=== PATIENT | female | born 1950 | race Caucasian/White ===

== ENCOUNTER 2020-08-29 10:15 | Inpatient (IN) | payer MEDICARE, SELFPAY ==
[2020-08-29] VITALS (8 sets, daily range): BP systolic 104–198; BP diastolic 74–103; PULSE 80–95; RESP 16–20; TEMP 37–37.2; O2SAT 93–96; BMI 28.9
--- NOTE | ~2020-08-29 | XR_ITS ---
EXAMINATION: XR CHEST CLINICAL INFORMATION: Left extremity swelling and SOB COMPARISON: None TECHNIQUE: 2 views of the chest were obtained. FINDINGS: The lungs are well-expanded and clear of acute process. The heart size and pulmonary vascularity is normal. No gross bony abnormality seen. XR/XR chest 2V IMPRESSION: Unremarkable chest exam.
--- NOTE | ~2020-08-29 | US_ITS ---
EXAMINATION: US-GUIDED PARACENTESIS US-GUIDED UMBILICAL MASS BIOPSY CLINICAL INFORMATION: New ascites. Omental caking and likely pelvic mass. COMPARISON: CT abdomen and pelvis 08/29/2000. TECHNIQUE: Following explaining ultrasound-guided paracentesis and ultrasound-guided umbilical mass biopsy, procedure, benefits and risk, a written consent was obtained. Preliminary CT imaging was obtained through the abdomen, and an optimal site of drainable fluid was obtained in right mid quadrant laterally. Also, a site was marked for ultrasound-guided umbilical mass biopsy. Both of these areas were cleaned in the usual sterile manner. 1% lidocaine was administered right mid abdomen puncture site. Through a small skin incision a 5-[employer] catheter was advanced in the right peritoneal space. After removing the stylet and observing fluid return, catheter was connected to vacuum bottle via connecting cannula. Subsequently, the umbilical area was cleaned again. 1% lidocaine was injected to the left of the umbilicus. Under sterile ultrasound guidance, a single wall needle was advanced into the right umbilical mass and a 3 core biopsy was performed with a Biopsy gun. There was bleeding visualized at the umbilicus. Postprocedure, complete hemostasis achieved at the biopsy site as well as the right pelvis and the site of the mid abdomen. Sterile dressing applied postprocedure. Patient tolerated procedure well without immediate complications. No conscious sedation was administered. Patient was monitored by our nursing during exam. FINDINGS: On preliminary ultrasound imaging, there is loculated moderate peritoneal fluid. There is a soft tissue mass in the left upper quadrant, likely omental caking. Approximately 500 mL of clear light yellowish fluid was drained from the right lower quadrant. Part of this fluid was sent to lab for further testing. Preliminary ultrasound imaging through the umbilicus was performed. Preliminary ultrasound revealed a solid mass in the umbilicus. After sterile preparation, a 20-gauge guide needle was advanced from a left side approach into the umbilicus and coaxially a fine-needle biopsy was obtained x 3. Postprocedure, the needle was withdrawn from the umbilical mass and complete hemostasis achieved at puncture site. Patient tolerated the procedure extremely well. US/US biopsy abdomen retro mass IMPRESSION: Successful ultrasound-guided paracentesis with approximately 500 mL of light yellowish fluid drained from the right mid to lower quadrant. There appear to be a lot of loculations in the abdomen. Successful ultrasound-guided umbilical mass core biopsy performed x 3.
--- NOTE | ~2020-08-29 | FL_ITS ---
EXAMINATION: XR FLUOROSCOPY WITH IMAGES CLINICAL INFORMATION: Cystoscopy and stent placement right-sided COMPARISON: CT abdomen pelvis 08/29/2020 TECHNIQUE: Fluoroscopy performed by Dr. León. Fluoroscopy time: 54.7 seconds DAP: 17.44 mGy Images: 1 FINDINGS: Single image over the right kidney shows a double-J stent over the right kidney and passing down into the pelvis. There is small volume of contrast in dilated right renal collecting system. FL/FL guidance in OR IMPRESSION: Placement of double-J stent in right collecting system.
--- NOTE | ~2020-08-29 | US_ITS ---
EXAMINATION: US PELVIS, LIMITED/FOLLOW UP CLINICAL INFORMATION: Evaluate adnexal mass COMPARISON: 08/29/2020 TECHNIQUE: Transabdominal images of the pelvis were obtained. FINDINGS: Uterus not seen. Left ovary not seen. Moderate volume of ascites. In the region of the right adnexa, there is a 7.8 x 4.8 x 5.0 cm complex cystic structure. No normal-appearing right ovary is seen to confirm that this is ovarian in etiology. It could reflect loculated ascites. US/US pelvic limited IMPRESSION: 7.8 x 4.8 x 5.0 cm complex cystic structure in the right pelvis. Its unclear if this is adnexal in etiology or could reflect loculated ascites. Consider MRI with and without contrast for further evaluation as clinically indicated.
--- NOTE | ~2020-08-29 | CT_ITS ---
EXAMINATION: CT CHEST, ABDOMEN AND PELVIS WITHOUT CONTRAST CLINICAL INFORMATION: Weight loss, abdominal distention. Leg swelling. COMPARISON: Chest x-ray 08/29/2020. TECHNIQUE: 5 mm thin axial and reformatted 3 mm thin sagittal and coronal images of chest, abdomen and pelvis were obtained without contrast. DLP: 857 mGy-cm. FINDINGS: CHEST: The lungs are well-expanded and clear of acute pneumonic process. There is a 3 mm nodule left lower lobe superior segment adjacent to major fissure, axial image 98/7; a 4 mm nodule right upper lobe subpleural base, axial image 98/7. There is a 2 mm calcified nodule right upper lobe, axial image 208/7; 2 mm calcified nodule left lower lobe pericardial base, axial image 308/7. There are atelectatic changes in left lower lobe and right lower lobe. No acute pneumonic process seen. The thyroid lobes are symmetrical with small calcified nodules at the periphery of bilateral thyroid lobes. No abnormal-sized pericardial or anterior neck lymph nodes seen. Heart size is enlarged. The great vessels are normal caliber. There is atherosclerotic calcification of thoracic arch without aneurysmal dilatation. Coronary artery calcification visualized. There is no pleural effusion or pleural thickening. The axilla and chest wall appear unremarkable. ABDOMEN AND PELVIS: The liver is lobulated contour, heterogenous but no focal lesion or intrahepatic ductal dilatation seen. There is perihepatic ascites. The CBD is nondilated. There are surgical óscar in the right upper quadrant likely from previous cholecystectomy. There is mild heterogeneity of the spleen with small hypodense areas. The largest 1.5 cm hypodensity, axial image 14/11, may represent hemangioma, cyst or normal tissue variation in contrast uptake. Bilateral adrenal glands and the pancreas are unremarkable. The kidneys are normal size, shape. There are small exophytic midpole cysts right kidney. There is a moderately dilated right kidney pelvis and ureter extending to the mid abdomen and lost beyond that. The left kidney pelvis and the aorta are normal. There is a large amount of ascites. Also visualized is mild anasarca, but no abdominal wall hernia. There is a moderate-sized hiatal hernia. A small umbilical hernia containing fluid is noted. The stomach is otherwise unremarkable. The small-bowel loops are normal caliber. Appendix is not seen. There is a large amount of stool seen in the transverse and ascending colon without colonic distention. No peritoneal seeding seen; however, there is a solitary peritoneal 1.1 cm lymph node seen on axial image 46/11. There are no retroperitoneal lymph nodes or mass seen. Imaging through the pelvis reveals midline uterus with heterogenous uterine uptake, but no focal lesion visualized. There is diffuse free fluid. There is a soft tissue mass suspected in the right adnexa with mild heterogeneity. The mass is hard to visualize due to underlying ascites, ureter and the bladder adjacent to it. It is best visualized on axial image 57/11. It measures 20 Hounsfield units likely loculated fluid collection. There is right femoral hernia containing fluid. Bone windows reveal no lytic or sclerotic process. CT/CT abdomen pelvis wo con IMPRESSION: No acute pneumonic consolidation. There are small pulmonary nodules measuring 2 to 4 mm. No abnormal mediastinal or axillary adenopathy. Mildly heterogenous spleen likely related to slow contrast uptake. Mild right hydronephrosis with no obstructive etiology seen. There is a right renal cyst. Moderate constipation without obstruction. Diffuse ascites and mild anasarca. Loculated fluid collection versus ovarian cyst right adnexa. Moderate free fluid is seen in the pelvis. Liver cirrhosis suspected. Small right inguinal hernia containing fluid and small hiatal hernia.
--- NOTE | ~2020-08-29 | US_ITS ---
EXAMINATION: US-GUIDED PARACENTESIS US-GUIDED UMBILICAL MASS BIOPSY CLINICAL INFORMATION: New ascites. Omental caking and likely pelvic mass. COMPARISON: CT abdomen and pelvis 08/29/2000. TECHNIQUE: Following explaining ultrasound-guided paracentesis and ultrasound-guided umbilical mass biopsy, procedure, benefits and risk, a written consent was obtained. Preliminary CT imaging was obtained through the abdomen, and an optimal site of drainable fluid was obtained in right mid quadrant laterally. Also, a site was marked for ultrasound-guided umbilical mass biopsy. Both of these areas were cleaned in the usual sterile manner. 1% lidocaine was administered right mid abdomen puncture site. Through a small skin incision a 5-[employer] catheter was advanced in the right peritoneal space. After removing the stylet and observing fluid return, catheter was connected to vacuum bottle via connecting cannula. Subsequently, the umbilical area was cleaned again. 1% lidocaine was injected to the left of the umbilicus. Under sterile ultrasound guidance, a single wall needle was advanced into the right umbilical mass and a 3 core biopsy was performed with a Biopsy gun. There was bleeding visualized at the umbilicus. Postprocedure, complete hemostasis achieved at the biopsy site as well as the right pelvis and the site of the mid abdomen. Sterile dressing applied postprocedure. Patient tolerated procedure well without immediate complications. No conscious sedation was administered. Patient was monitored by our nursing during exam. FINDINGS: On preliminary ultrasound imaging, there is loculated moderate peritoneal fluid. There is a soft tissue mass in the left upper quadrant, likely omental caking. Approximately 500 mL of clear light yellowish fluid was drained from the right lower quadrant. Part of this fluid was sent to lab for further testing. Preliminary ultrasound imaging through the umbilicus was performed. Preliminary ultrasound revealed a solid mass in the umbilicus. After sterile preparation, a 20-gauge guide needle was advanced from a left side approach into the umbilicus and coaxially a fine-needle biopsy was obtained x 3. Postprocedure, the needle was withdrawn from the umbilical mass and complete hemostasis achieved at puncture site. Patient tolerated the procedure extremely well. US/US paracentesis abd w/image IMPRESSION: Successful ultrasound-guided paracentesis with approximately 500 mL of light yellowish fluid drained from the right mid to lower quadrant. There appear to be a lot of loculations in the abdomen. Successful ultrasound-guided umbilical mass core biopsy performed x 3.
[2020-08-29 12:14] LABS: Basophils Absolute Auto 0.1 X10*3/uL (0.0-0.2); Basophils Percent Auto 0.5 % (0-2); Hemoglobin 10.9 g/dl (12.0-16.0); MANUAL DIFF FLAG SCAN; PLT CLUMP 1; SCAN SMEAR FLAG 1
[2020-08-29 12:15] LABS: Eosinophils Absolute Auto 0.1 X10*3/uL (0.0-0.4); Eosinophils Percent Auto 0.4 % (0-4); Hematocrit 35.1 % (37-47); Imm Gran Abs Auto 0.08 X10*3/uL (0.00-0.03); Imm Gran Pct Auto 0.6 % (0.0-0.4); Lymphocytes Absolute Auto 0.5 X10*3/uL (1.2-4.9); Lymphocytes Percent Auto 3.9 % (20-40); Mean Corpuscular HGB Conc 31.1 g/dl (31.0-35.0); Mean Corpuscular Hemoglobin 29.2 pg (27.0-33.0); Mean Corpuscular Volume 94.1 fL (80-98); Monocytes Absolute Auto 0.5 X10*3/uL (0.1-1.2); Monocytes Percent Auto 3.5 % (2-11); Neutrophils Absolute Auto 11.8 X10*3/uL (2.0-8.3); Neutrophils Percent Auto 91.1 % (45-73); Red Blood Count 3.73 X10*6/uL (4.20-5.50); Red Cell Distribution Width 17.1 % (11.0-16.0)
[2020-08-29 12:26] LABS: Anion Gap 20 (12-20); Blood Urea Nitrogen 32 mg/dL (9-16); Calcium 9.7 mg/dL (8.4-10.2); Carbon Dioxide 26 mmol/L (22-29); Chloride 97 mmol/L (96-108); Creatinine Clr Calc Pharmacy 25.4; Estimated Glomerular Filt Rate 24; Glucose Random 86 mg/dL (60-115); Potassium 5.2 mmol/L (3.3-5.1); Sodium 138 mmol/L (135-145)
[2020-08-29 12:32] LABS: B Type Natriuretic Peptide 218 pg/mL (<100)
[2020-08-29 12:36] LABS: SLIDE REVIEW VERIFIED
--- NOTE | 2020-08-29 12:41 | ECG_ITS ---
Test Reason : LED SWELLING Blood Pressure : / mmHG Vent. Rate : 074 BPM Atrial Rate : 074 BPM P-R Int : 140 ms QRS Dur : 092 ms QT Int : 370 ms P-R-T Axes : 025 -23 053 degrees QTc Int : 410 ms Normal sinus rhythm with sinus arrhythmia Minimal voltage criteria for LVH, may be normal variant Cannot rule out Anterior infarct , age undetermined Abnormal ECG When compared with ECG of 22-APR-2017 13:52, No significant change was found Referred By: Alannah Skinner Electronically Signed By:LC JACKSON MD
--- NOTE | 2020-08-29 13:07 | ED_ITS ---
HPI - General Adult General Chief complaint: General Medical Stated complaint: CONSTIPATION WEIGHT LOSS Time Seen by Provider: 08/29/20 12:05 Source: patient and family Mode of arrival: ambulatory Limitations: no limitations History of Present Illness HPI narrative: 69-year-old female with a past medical history of substance use currently on methadone, copd here with complaints of loss of appetite, intermittent nausea and vomiting for the last month with 25lbs weight loss and abdominal distension and pain. She is also complaining of some constipation over the last 3 weeks. Her last bowel movement was 3 days ago but it was very small and pellet-like. She denies any shortness of breath, cough or chest pain. She has had lower extremity swelling over the last 2 weeks with no pain. Feeling generally weak, decreased movement at home. Family at bedside very concerned. Received moderna 2nd vaccine one month ago. Related Data Allergies Allergy/AdvReac Type Severity Reaction Status Date / Time fluoxetine [Prozac] Allergy Unknown Verified 11/28/12 00:00 lisinopril [LISINOPRIL] Allergy Unknown ANAPHYLAXIS, Unverified 12/05/19 15:31 THROAT SWELLS From PROZAC Allergy Severe INVOLUNTARY Uncoded 12/05/19 15:31 SPASMS Review of Systems Review of Systems: Yes all other systems are reviewed and are negative Constitutional: Constitutional: Reports no additional constitutional complaints, Denies body ache(s), Denies chills, Denies fever(s), Denies headache(s), Reports lethargy, Denies weakness and Reports weight loss Eyes: Eyes: Reports no additional eye complaints and Denies change in vision ENT: Reports system reviewed and no additional complaints, except as documented, Denies dizziness, Denies headache(s), Denies nasal congestion, Denies nasal discharge and Denies neck pain Cardiovascular: Cardiovascular: Reports no additional cardiovascular complaints, Denies chest pain, Reports leg edema and Denies dyspnea Respiratory: Respiratory: Reports no additional respiratory complaints, Denies cough and Denies dyspnea Gastrointestinal: Gastrointestinal: Reports no additional gastrointestinal complaints, Reports abdominal pain, Reports constipation, Denies diarrhea, Reports nausea and Reports vomiting Genitourinary: Genitourinary: Reports no additional female genitourinary complaints and Denies urinary incontinence Musculoskeletal: Musculoskeletal: Reports no additional musculoskeletal complaints, Denies back pain, Denies arthralgias, Denies joint swelling, Denies neck pain, Denies numbness and Denies tingling Integumentary/Breasts: Skin/Breast: Reports system reviewed and no additional complaints, except as docu and Denies rash Neurologic: Reports system reviewed and no additional complaints, except as documented, Denies Abnormal speech present, Denies dizziness, Denies headache(s), Denies numbness, Denies tingling and Denies weakness PMF Past Medical History Attestation statement: The following information was validated with the patient. Source: old records reviewed and nursing notes reviewed Social History Social History Alcohol intake: never Patient Tobacco Use Status: Current everyday Tobacco user Use of substances other than those prescribed or required for medical reasons: No Advance Directives: Yes Advance Directives Information Provided: Yes Advance Directives on File: No Physical Exam 2 Vital Signs: Vital Signs: Last Vital Signs Temp 98.6 F 08/29/20 16:48 Pulse 82 08/29/20 19:11 Resp 18 08/29/20 19:11 BP 165/83 H 08/29/20 19:11 Pulse Ox 96 08/29/20 19:11 Body Mass Index 28.9 Const: General: cooperative Orientation/consciousness: patient oriented x3 Limitations: no limitations HENMT: Head: Yes normal to inspection Ears: hearing grossly normal bilaterally General nose exam: Normal external nose present Face and sinu s: Yes normal facial exam Mouth: Normal oral and palatal mucosa present Throat: Yes posterior oropharynx normal, Yes tonsils normal and Yes uvula midline Eyes: General: appearance normal, both eyes and all related structures Pupils: Equal, round and reactive pupils present Neck: Neck: Yes normal visual inspection, Yes full ROM, Yes no lymphadenopathy and Yes no meningeal signs Chest: Chest palpation & inspection: normal inspection of the chest Resp: Effort & Inspection: normal respiratory effort Auscultation: clear to auscultation bilaterally Cardio: Rate: regular rate Rhythm: regular rhythm Peripheral pulses: Peripheral pulses 2+ throughout GI: Inspection: Yes normal to inspection Palpation (GI): Soft to palpation and Firmness to palpation present (GI) (distended, no obvious tenderness) Auscultation: normal bowel sounds Back/Spine/Pelvis: Thoracic/Lumbar Spine: thoracic and lumbar spine normal to inspection Skin: General skin exam: no rashes or lesions noted Neuro: General: patient oriented x3, moves all extremities, no meningeal signs, no focal motor deficits and normal sensation to monofilament Cranial nerves: Yes Equal, round and reactive pupils present, Yes Normal facial strength present and Yes Midline tongue present Cognition (Neuro): normal cognition Speech: No Abnormal speech present Gait exam (Neuro): Normal gait present Motor exam (neuro): 5/5 motor strength present throughout Extrem: Other: Massive pitting edema extending from the lower legs up to the groin with no erythema or redness General: Yes normal to inspection Course Course Course Narrative: 69 year old female with a past medical history of substance abuse currently on methadone here with complaints of abdominal distension with associated nausea, vomiting, change in bowel habits, 25 lb weight loss in the last 1 month with now lower extremity swelling extending to the groin. On exam the patient's abdomen is distended, firm there is no appreciable tenderness on exam. She has pitting edema extending from the lower extremities up to the groin. Hemodynamically stable. Will need labs, EKG, chest x-ray, UA, CT abdomen and chest. 1753-labs show a leukocytosis with acute kidney injury and a UTI. At this time infection is suspected. Antibiotics and normal saline bolus ordered. Patient also has a mildly elevated BNP. While there is no evidence on the chest x-ray of pulmonary vascular congestion this CT of her chest does show mild cardiomegaly and she has an elevated BNP with bilateral pitting edema to the low er extremities. Consider congestive heart failure. 20 mg of IV Lasix ordered. Imaging all show shows mild right hydronephrosis with no obstructive etiology. Moderate constipation with no obstruction. Diffuse ascites and mild anasarca with liver cirrhosis suspected. Soft tissue mass in the right adnexa with moderate free fluid in the pelvis. Due to weight loss with right adnexal mass consider malignancy. Pelvic ultrasound ordered. Discussed findings with patient and both of her daughters. At this point the patient will need admission for further evaluation and treatment. They agree to this.. 1809-discussed patient with Dr. Cervantes. At this point recommended admission after 19:00 with night team. 1944-Discussed with Dr Clancy who accepted admission. We discussed if patient requires immediate paracentesis in the ED today however after discussion with Dr Israel we do not feel at this time it is needed tonight and is best to be done guided under ultrasound in the setting of splenomegaly, coagulopathy., Medical Decision Making MDM Narrative Medical decision making narrative: Malignancy, liver failure, congestive heart failure Medical Records Medical records reviewed: Yes I reviewed the patient's medical records. Lab Data Lab results reviewed: Yes I reviewed the patient's lab results. Result diagrams: 08/29/20 11:56 08/29/20 11:56 Labs: Lab Results 08/29/20 08/29/20 08/29/20 Range/Units 11:56 11:56 11:56 WBC 13.0 H (4.8-10.8) X10*3/uL RBC 3.73 L (4.20-5.50) X10*6/uL Hgb 10.9 L (12.0-16.0) g/dl Hct 35.1 L (37-47) % MCV 94.1 (80-98) fL MCH 29.2 (27.0-33.0) pg MCHC 31.1 (31.0-35.0) g/dl RDW 17.1 H (11.0-16.0) % Plt Count TNP MPV Not Reportable Immature Gran % (Auto) 0.6 H (0.0-0.4) % Neut % (Auto) 91.1 H (45-73) % Lymph % (Auto) 3.9 L (20-40) % Wheeler % (Auto) 3.5 (2-11) % Eos % (Auto) 0.4 (0-4) % Baso % (Auto) 0.5 (0-2) % Lymph # (Auto) 0.5 L (1.2-4.9) X10*3/uL Wheeler # (Auto) 0.5 (0.1-1.2) X10*3/uL Eos # (Auto) 0.1 (0.0-0.4) X10*3/uL Baso # (Auto) 0.1 (0.0-0.2) X10*3/uL Abs Immat Gran (auto) 0.08 H (0.00-0.03) X10*3/uL Absolute Neuts (auto) 11.8 H (2.0-8.3) X10*3/uL Absolute Nucleated RBC 0.000 (0.0-0.012) X10*3/uL Nucleated RBC % (auto) 0.0 (0.0-0.2) /100WBC Smear Tech's Comments VERIFIED PT (10.8-13.0) SEC INR (0.9-1.1) Sodium 138 (135-145) mmol/L Potassium 5.2 H (3.3-5.1) mmol/L Chloride 97 (96-108) mmol/L Carbon Dioxide 26 (22-29) mmol/L Anion Gap 20 (12-20) BUN 32 H (9-16) mg/dL Creatinine 2.07 H (0.5-1.4) mg/dL Estim Creat Clear Calc 25.4 Estimated GFR 24 Random Glucose 86 (60-115) mg/dL Lactic Acid (0.5-2.0) mmol/L Calcium 9.7 (8.4-10.2) mg/dL Magnesium 2.2 (1.6-2.6) mg/dL Total Bilirubin 0.2 (0.0-1.0) mg/dL Direct Bilirubin < 0.2 (0.0-0.5) mg/dL AST 23 (5-31) U/L ALT < 6 (0-31) U/L Alkaline Phosphatase 732 H (39-117) U/L Total Creatine Kinase 21 L (26-140) U/L Troponin I High Sens (<3.5-17.0) ng/L B-Natriuretic Peptide 218 H (<100) pg/mL Total Protein 7.3 (6.5-8.0) g/dL Albumin 3.7 (3.5-5.0) g/dL Urine Color Urine Appearance Urine pH (5.0-8.0) Ur Specific [place] (1.005-1.025) Urine Protein (NEG-TRACE) MG/DL Urine Glucose (UA) (NEG) MG/DL Urine Ketones (NEG) MG/DL Urine Blood (NEG) Urine Nitrite (NEG) Ur Leukocyte Esterase (NEG) Urine RBC (0) /HPF Urine WBC (0-4) /HPF Ur Squamous Epith Cells /LPF Amorphous Sediment /LPF Urine Bacteria /LPF COVID-19 ([place]) (Negative) COVID-19 Clin Com 08/29/20 08/29/20 08/29/20 Range/Units 14:42 14:42 14:42 WBC (4.8-10.8) X10*3/uL RBC (4.20-5.50) X10*6/uL Hgb (12.0-16.0) g/dl Hct (37-47) % MCV (80-98) fL MCH (27.0-33.0) pg MCHC (31.0-35.0) g/dl RDW (11.0-16.0) % Plt Count MPV Immature Gran % (Auto) (0.0-0.4) % Neut % (Auto) (45-73) % Lymph % (Auto) (20-40) % Wheeler % (Auto) (2-11) % Eos % (Auto) (0-4) % Baso % (Auto) (0-2) % Lymph # (Auto) (1.2-4.9) X10*3/uL Wheeler # (Auto) (0.1-1.2) X10*3/uL Eos # (Auto) (0.0-0.4) X10*3/uL Baso # (Auto) (0.0-0.2) X10*3/uL Abs Immat Gran (auto) (0.00-0.03) X10*3/uL Absolute Neuts (auto) (2.0-8.3) X10*3/uL Absolute Nucleated RBC (0.0-0.012) X10*3/uL Nucleated RBC % (auto) (0.0-0.2) /100WBC Smear Tech's Comments PT 13.8 H (10.8-13.0) SEC INR 1.2 H (0.9-1.1) Sodium (135-145) mmol/L Potassium (3.3-5.1) mmol/L Chloride (96-108) mmol/L Carbon Dioxide (22-29) mmol/L Anion Gap (12-20) BUN (9-16) mg/dL Creatinine (0.5-1.4) mg/dL Estim Creat Clear Calc Estimated GFR Random Glucose (60-115) mg/dL Lactic Acid 0.9 (0.5-2.0) mmol/L Calcium (8.4-10.2) mg/dL Magnesium (1.6-2.6) mg/dL Total Bilirubin (0.0-1.0) mg/dL Direct Bilirubin (0.0-0.5) mg/dL AST (5-31) U/L ALT (0-31) U/L Alkaline Phosphatase (39-117) U/L Total Creatine Kinase (26-140) U/L Troponin I High Sens 15.9 (<3.5-17.0) ng/L B-Natriuretic Peptide (<100) pg/mL Total Protein (6.5-8.0) g/dL Albumin (3.5-5.0) g/dL Urine Color Urine Appearance Urine pH (5.0-8.0) Ur Specific [place] (1.005-1.025) Urine Protein (NEG-TRACE) MG/DL Urine Glucose (UA) (NEG) MG/DL Urine Ketones (NEG) MG/DL Urine Blood (NEG) Urine Nitrite (NEG) Ur Leukocyte Esterase (NEG) Urine RBC (0) /HPF Urine WBC (0-4) /HPF Ur Squamous Epith Cells /LPF Amorphous Sediment /LPF Urine Bacteria /LPF COVID-19 ([place]) (Negative) COVID-19 Clin Com 08/29/20 08/29/20 08/29/20 Range/Units 16:57 18:37 18:37 WBC (4.8-10.8) X10*3/uL RBC (4.20-5.50) X10*6/uL Hgb (12.0-16.0) g/dl Hct (37-47) % MCV (80-98) fL MCH (27.0-33.0) pg MCHC (31.0-35.0) g/dl RDW (11.0-16.0) % Plt Count MPV Immature Gran % (Auto) (0.0-0.4) % Neut % (Auto) (45-73) % Lymph % (Auto) (20-40) % Wheeler % (Auto) (2-11) % Eos % (Auto) (0-4) % Baso % (Auto) (0-2) % Lymph # (Auto) (1.2-4.9) X10*3/uL Wheeler # (Auto) (0.1-1.2) X10*3/uL Eos # (Auto) (0.0-0.4) X10*3/uL Baso # (Auto) (0.0-0.2) X10*3/uL Abs Immat Gran (auto) (0.00-0.03) X10*3/uL Absolute Neuts (auto) (2.0-8.3) X10*3/uL Absolute Nucleated RBC (0.0-0.012) X10*3/uL Nucleated RBC % (auto) (0.0-0.2) /100WBC Smear Tech's Comments PT (10.8-13.0) SEC INR (0.9-1.1) Sodium (135-145) mmol/L Potassium (3.3-5.1) mmol/L Chloride (96-108) mmol/L Carbon Dioxide (22-29) mmol/L Anion Gap (12-20) BUN (9-16) mg/dL Creatinine (0.5-1.4) mg/dL Estim Creat Clear Calc Estimated GFR Random Glucose (60-115) mg/dL Lactic Acid (0.5-2.0) mmol/L Calcium (8.4-10.2) mg/dL Magnesium (1.6-2.6) mg/dL Total Bilirubin (0.0-1.0) mg/dL Direct Bilirubin (0.0-0.5) mg/dL AST (5-31) U/L ALT (0-31) U/L Alkaline Phosphatase (39-117) U/L Total Creatine Kinase (26-140) U/L Troponin I High Sens 17.2 H* (<3.5-17.0) ng/L B-Natriuretic Peptide (<100) pg/mL Total Protein (6.5-8.0) g/dL Albumin (3.5-5.0) g/dL Urine Color YELLOW Urine Appearance CLOUDY Urine pH 5.5 (5.0-8.0) Ur Specific [place] >= 1.030 H (1.005-1.025) Urine Protein 2+ H (NEG-TRACE) MG/DL Urine Glucose (UA) NEG (NEG) MG/DL Urine Ketones NEG (NEG) MG/DL Urine Blood 2+ H (NEG) Urine Nitrite NEG (NEG) Ur Leukocyte Esterase 1+ H (NEG) Urine RBC 15-29 H (0) /HPF Urine WBC 30-49 H (0-4) /HPF Ur Squamous Epith Cells 1+ /LPF Amorphous Sediment 2+ /LPF Urine Bacteria 1+ /LPF COVID-19 ([place]) Negative (Negative) COVID-19 Clin Com See Note Imaging Data Chest x-ray: Attestation: I personally reviewed and interpreted this imaging study as follows: Radiologist's impression: EXAMINATION: XR CHEST CLINICAL INFORMATION: Left extremity swelling and SOB COMPARISON: None TECHNIQUE: 2 views of the chest were obtained. FINDINGS: The lungs are well-expanded and clear of acute process. The heart size and pulmonary vascularity is normal. No gross bony abnormality seen. XR/XR chest 2V IMPRESSION: Unremarkable chest exam. ECG Data Attestation: I personally reviewed and interpreted this ECG as follows: Interpretation: Normal sinus rhythm with sinus arrhythmia, minimal voltage criteria for LVH, normal RI, normal QRS, normal QT Discharge Plan Discharge Clinical Impression: NONI (acute kidney injury), Leukocytosis, UTI (urinary tract infection), Elevated brain natriuretic peptide (BNP) level, Swelling of both lower extremities, Adnexal mass, Abnormal weight loss Patient Disposition: Admitted As Inpatient
[2020-08-29] MEDS: 0.9 % Sodium Chloride 500 ML 999 ML IV (13:18)
[2020-08-29 13:23] LABS: Alanine Aminotransferase < 6 U/L (0-31); Albumin Level 3.7 g/dL (3.5-5.0); Alkaline Phosphatase 732 U/L (39-117); Aspartate Amino Transferase 23 U/L (5-31); Bilirubin Direct < 0.2 mg/dL (0.0-0.5); Bilirubin Total 0.2 mg/dL (0.0-1.0); Magnesium 2.2 mg/dL (1.6-2.6); Total Protein 7.3 g/dL (6.5-8.0)
[2020-08-29 15:00] LABS: INTERNATIONAL NORM RATIO 1.2 (0.9-1.1); Prothrombin Time 13.8 SEC (10.8-13.0)
[2020-08-29 15:08] LABS: Lactic Acid 0.9 mmol/L (0.5-2.0)
[2020-08-29 15:31] LABS: Troponin-I High Sensitivity 15.9 ng/L (<3.5-17.0)
[2020-08-29 17:09] LABS: Glucose Urine UA NEG (NEG); Leukocyte Esterase Urine 1+ (NEG); Nitrite Urine NEG (NEG); PH 5.5 (5.0-8.0); Specific Gravity - Urine >= 1.030 (1.005-1.025); UACC Culture Trigger YES; Urine Blood 2+ (NEG); Urine Ketones NEG (NEG); Urine Protein 2+ MG/DL (NEG-TRACE)
[2020-08-29 17:11] LABS: Appearance Urine CLOUDY; Color Urine YELLOW
[2020-08-29 17:19] LABS: Amorphous Sediment Urine 2+ /LPF; Bacteria Urine 1+ /LPF; Squamous Epithelial Cell Urine 1+ /LPF; WBC Urine 30-49 /HPF (0-4)
[2020-08-29] MEDS: Furosemide 20 MG/2 ML VIAL IVPUSH (18:41)
[2020-08-29] MEDS: cefTRIAXone sodium 1 GM in 0.9 % Sodium Chloride 50 ML IV (18:41)
[2020-08-29 19:07] LABS: COVID-19 Test Negative (Negative); IDNOW Serial# 9DD0AD1C
[2020-08-29 19:28] LABS: Troponin-I High Sensitivity 17.2 ng/L (<3.5-17.0)
[2020-08-29] MEDS: 0.9 % Sodium Chloride 1,000 ML 100 ML IVCONT (20:50)
--- NOTE | 2020-08-29 21:04 | PC.NURSE ---
pt has severe 10/10 left lower abd. hospitalist called for additional pain medication.
[2020-08-29 21:21] LABS: C Reactive Protein 16.23 mg/dL (< or = 0.50)
[2020-08-29] MEDS: HYDROmorphone HCl 0.5 MG/0.5 ML SYRINGE IVPUSH (21:35)
[2020-08-29 21:52] LABS: Erythrocyte Sedimentation Rate 92 MM/HR (0-20)
[2020-08-30] VITALS (12 sets, daily range): BP systolic 110–208; BP diastolic 61–94; PULSE 68–94; RESP 16–18; TEMP 36.3–36.9; O2SAT 91–97
--- NOTE | 2020-08-30 00:05 | P.HPHOSP_ITS ---
History of Present Illness Date of Service: 08/29/20 Chief Complaint: Abdominal pain 69-year-old female with a past medical history of opiate dependence on methadone program, COPD, tobacco dependence presented to the hospital with a chief complaint of abdominal discomfort. Patient mentions that over the past few days he has been having abdominal discomfort which has been gradually worsening. Hence decided to come to the ER here for evaluation today. Patient reports that over the past few weeks he has been losing weight-lost almost about 25 lb. Reports abdominal discomfort. Denies passing gas or having bowel movement. Per family members patient has been having issues with constipation. Patient denies any alcohol or illicit drug use. Denies any recent travel or sick contacts. Denies any in blood in the stool. Reports nausea and vomiting. Also reports poor oral intake. Denies any urinary symptoms. Denies any cough or chest pain. Denies any palpitations. Denies any numbness tingling. Review of all other systems is negative except mentioned above ER course: Per ER team patient noted to have a distended abdomen, tender, no guarding; CT abdomen showed home in liver cirrhosis with the new onset ascites, right adnexal mass; on the labs noted to have NONI and UTI. Patient has no signs of enceph alopathy. Neurological exam benign. Will CT chest showed cardiomegaly otherwise no acute findings. Her troponins ended from 8. Admitted to the hospital for further management. [facility] Medical History (Updated 08/30/20 @ 15:51 by Scarlet Del Angel MD) COPD (chronic obstructive pulmonary disease) Surgical History (Updated 08/30/20 @ 13:39 by Mary Valenzuela MD) History of cholecystectomy Social History Alcohol intake: never Patient Tobacco Use Status: Current everyday Tobacco user Use of substances other than those prescribed or required for medical reasons: No Advance Directives: Yes Advance Directives Information Provided: Yes Advance Directives on File: No service: No Current occupational status: retired Meds Allergies Allergy/AdvReac Type Severity Reaction Status Date / Time fluoxetine [Prozac] Allergy Unknown Verified 11/28/12 00:00 lisinopril [LISINOPRIL] Allergy Unknown ANAPHYLAXIS, Unverified 12/05/19 15:31 THROAT SWELLS From PROZAC Allergy Severe INVOLUNTARY Uncoded 12/05/19 15:31 SPASMS Active Medications: Current Medications Generic Name Dose Route Start Last Admin Trade Name Kenji PRN Reason Stop Dose Admin Acetaminophen 650 mg 08/29/20 20:17 Acetaminophen 325 Mg Tablet PO Q6H PRN Pain, Mild (Pain Scale 1-3) Hydromorphone HCl 0.5 mg 08/29/20 21:02 08/29/20 21:35 Hydromorphone Hcl 0.5 Mg/0.5 Ml Syringe IVPUSH 0.5 mg Q4H PRN Administration Breakthrough Pain Sodium Chloride 1,000 mls @ 100 mls/hr 08/29/20 20:30 08/29/20 20:50 Ns IVCONT 100 mls/hr .Q10H DOMINICK Administration Ceftriaxone Sodium 1 gm/ 50 mls @ 100 mls/hr 08/30/20 18:00 Sodium Chloride IV Q24H [facility] Pharmacy Consult 1 each 08/29/20 17:54 Consult Rx Perform Med Rec MISCELLANE ONCE PRN Consult order Sodium Chloride 3 ml 08/30/20 00:00 0.9 % Sodium Chloride Flush 3 Ml Syringe IVFLUSH QSHIFT [facility] Home Medications Medication Instructions Recorded Confirmed Last Taken Type methadone 105 mg PO QAM 08/30/20 08/30/20 08/29/20 History 0800 Physical Exam Vital Signs and Narrative: Vital Signs: Last Vital Signs Temp 98.6 F 08/29/20 16:48 Pulse 86 08/29/20 22:44 Resp 16 08/29/20 22:44 BP 186/90 H 08/29/20 22:44 Pulse Ox 95 08/29/20 22:44 Body Mass Index 28.9 Gen: Appears be in no acute distress HEENT: NCAT, Moist mucosa. Pulmonary: Vesicular breath sounds, fair air entry CVS: Normal S1-S2 Abdomen: BS+, Soft, distended, tender, fullness noticed on the left side; no guarding no rigidity Extremities: Warm well perfused Neuro: Alert and awake. Results Labs CBC and Chem 7: 08/30/20 12:46 08/30/20 12:46 Labs: Laboratory Results - last 24 hr 08/29/20 08/29/20 08/29/20 11:56 11:56 11:56 MCV 94.1 MCH 29.2 MCHC 31.1 RDW 17.1 H Plt Count TNP MPV Not Reportable Immature Gran % (Auto) 0.6 H Neut % (Auto) 91.1 H Lymph % (Auto) 3.9 L [place] % (Auto) 3.5 Eos % (Auto) 0.4 Baso % (Auto) 0.5 Lymph # (Auto) 0.5 L [place] # (Auto) 0.5 Eos # (Auto) 0.1 Baso # (Auto) 0.1 Abs Immat Gran (auto) 0.08 H Absolute Neuts (auto) 11.8 H Absolute Nucleated RBC 0.000 Nucleated RBC % (auto) 0.0 Smear Tech's Comments VERIFIED ESR PT INR Anion Gap 20 Estim Creat Clear Calc 25.4 Estimated GFR 24 Random Glucose 86 Lactic Acid Calcium 9.7 Magnesium 2.2 Total Bilirubin 0.2 Direct Bilirubin < 0.2 AST 23 ALT < 6 Alkaline Phosphatase 732 H Total Creatine Kinase 21 L Troponin I High Sens C-Reactive Protein 16.23 H B-Natriuretic Peptide 218 H Total Protein 7.3 Albumin 3.7 Carcinoembryonic Ag 1.80 Urine Color Urine Appearance Urine pH Ur Specific [place] Urine Protein Urine Glucose (UA) Urine Ketones Urine Blood Urine Nitrite Ur Leukocyte Esterase Urine RBC Urine WBC Ur Squamous Epith Cells Amorphous Sediment Urine Bacteria COVID-19 ([facility]) COVID-19 Clin Com 08/29/20 08/29/20 08/29/20 11:56 14:42 14:42 MCV MCH MCHC RDW Plt Count MPV Immature Gran % (Auto) Neut % (Auto) Lymph % (Auto) [place] % (Auto) Eos % (Auto) Baso % (Auto) Lymph # (Auto) [place] # (Auto) Eos # (Auto) Baso # (Auto) Abs Immat Gran (auto) Absolute Neuts (auto) Absolute Nucleated RBC Nucleated RBC % (auto) Smear Tech's Comments ESR 92 H PT 13.8 H INR 1.2 H Anion Gap Estim Creat Clear Calc Estimated GFR Random Glucose Lactic Acid 0.9 Calcium Magnesium Total Bilirubin Direct Bilirubin AST ALT Alkaline Phosphatase Total Creatine Kinase Troponin I High Sens C-Reactive Protein B-Natriuretic Peptide Total Protein Albumin Carcinoembryonic Ag Urine Color Urine Appearance Urine pH Ur Specific [place] Urine Protein Urine Glucose (UA) Urine Ketones Urine Blood Urine Nitrite Ur Leukocyte Esterase Urine RBC Urine WBC Ur Squamous Epith Cells Amorphous Sediment Urine Bacteria COVID-19 ([facility]) COVID-19 Clin Com 08/29/20 08/29/20 08/29/20 14:42 16:57 18:37 MCV MCH MCHC RDW Plt Count MPV Immature Gran % (Auto) Neut % (Auto) Lymph % (Auto) [place] % (Auto) Eos % (Auto) Baso % (Auto) Lymph # (Auto) [place] # (Auto) Eos # (Auto) Baso # (Auto) Abs Immat Gran (auto) Absolute Neuts (auto) Absolute Nucleated RBC Nucleated RBC % (auto) Smear Tech's Comments ESR PT INR Anion Gap Estim Creat Clear Calc Estimated GFR Random Glucose Lactic Acid Calcium Magnesium Total Bilirubin Direct Bilirubin AST ALT Alkaline Phosphatase Total Creatine Kinase Troponin I High Sens 15.9 17.2 H* C-Reactive Protein B-Natriuretic Peptide Total Protein Albumin Carcinoembryonic Ag Urine Color YELLOW Urine Appearance CLOUDY Urine pH 5.5 Ur Specific [place] >= 1.030 H Urine Protein 2+ H Urine Glucose (UA) NEG Urine Ketones NEG Urine Blood 2+ H Urine Nitrite NEG Ur Leukocyte Esterase 1+ H Urine RBC 15-29 H Urine WBC 30-49 H Ur Squamous Epith Cells 1+ Amorphous Sediment 2+ Urine Bacteria 1+ COVID-19 ([facility]) COVID-19 Clin Com 08/29/20 18:37 MCV MCH MCHC RDW Plt Count MPV Immature Gran % (Auto) Neut % (Auto) Lymph % (Auto) [place] % (Auto) Eos % (Auto) Baso % (Auto) Lymph # (Auto) [place] # (Auto) Eos # (Auto) Baso # (Auto) Abs Immat Gran (auto) Absolute Neuts (auto) Absolute Nucleated RBC Nucleated RBC % (auto) Smear Tech's Comments ESR PT INR Anion Gap Estim Creat Clear Calc Estimated GFR Random Glucose Lactic Acid Calcium Magnesium Total Bilirubin Direct Bilirubin AST ALT Alkaline Phosphatase Total Creatine Kinase Troponin I High Sens C-Reactive Protein B-Natriuretic Peptide Total Protein Albumin Carcinoembryonic Ag Urine Color Urine Appearance Urine pH Ur Specific [place] Urine Protein Urine Glucose (UA) Urine Ketones Urine Blood Urine Nitrite Ur Leukocyte Esterase Urine RBC Urine WBC Ur Squamous Epith Cells Amorphous Sediment Urine Bacteria COVID-19 ([facility]) Negative COVID-19 Clin Com See Note Imaging Radiologist's Impressions: Impressions Chest X-Ray 08/29/20 12:41 IMPRESSION: Unremarkable chest exam. Pelvis Ultrasound 08/29/20 18:01 IMPRESSION: 7.8 x 4.8 x 5.0 cm complex cystic structure in the right pelvis. Its unclear if this is adnexal in etiology or could reflect loculated ascites. Consider MRI with and without contrast for further evaluation as clinically indicated. Assessment and Plan (1) NONI (acute kidney injury): Status: Acute 69-year-old female with a past medical history of opiate dependence on methadone, tobacco dependence, COPD presented to the hospital with a chief complaint of abdominal pain/weight loss/nausea/vomiting/poor oral intake. Abdominal mass: Will consult General surgery and urogynaecologist further recommendations. Patient also noted to have oozing from the umbilicus. CT chest-preliminary noted to have cardiomegaly otherwise no acute abdominal mildly-final read pending CT abdomen-preliminary reported liver cirrhosis new onset ascites, right adnexal mass-final read pending Will keep the patient NPO Gentle IV fluids Oncology consult Will obtain AFP and CEA levels Liver cirrhosis/new onset ascites: IR consult for diagnostic tap. Will obtain NATHANIEL panel, EBV, CMV, hepatitis panel. Gastroenterology consult for further recommendations. Patient currently mentating well, no signs of encephalopathy. UTI: Continue ceftriaxone. Follow up cultures. NONI: Gentle IV fluids. Tobacco dependence: Counseled on smoking cessation COPD: Stable. Celeste p.r.n. Opiate dependence: Patient on methadone 105 mg daily. Will consult Addiction Medicine for confirmation and continuation of methadone. Prophylaxis: SCD boots Code status: Full code Spoke to the patient's granddaughter ankush [phone]
[2020-08-30] MEDS: HYDROmorphone HCl 0.5 MG/0.5 ML SYRINGE IVPUSH ×5 (01:34→22:30)
--- NOTE | 2020-08-30 07:14 | PC.NURSE ---
PT refusing labs at this time.
[2020-08-30] MEDS: 0.9 % Sodium Chloride 1,000 ML 100 ML IVCONT ×2 (09:04→17:24)
--- NOTE | 2020-08-30 10:07 | MHC.RECOVSUP ---
Recovery Support note: Patient is a 69 year old Citizen Of [place] speaking female who presented to [facility] ED due to constipation. Patient is currently awaiting a medical admission. This marketing underwriter met with patient to discuss her substance use and methadone maintenance treatment. Patient is accompanied by two family members. Patient reports she is still uncomfortable and in pain. Patient reports she receives methadone through [facility] and that they give her two weeks worth at a time. Patient reports the methadone has been very helpful and she reports no current substance use. Patient reports she has not taken her methadone dose today. Patient filled out EITAN which was sent to the [facility] methadone nursing station ([phone]). [facility] and confirmed that patient receives 105mg. This marketing underwriter informed patient's RN that patient is still feeling uncomfortable. This marketing underwriter available as needed.
--- NOTE | 2020-08-30 10:09 | HO.PM.IMPN ---
Subjective Subjective Date of Service: 08/30/20 Interval History: Seen in f/u for pelvic mass, ascietes, renal failure, still has some abd pain Physical Exam Vital Signs: Vital Signs: Last Vital Signs Temp 98.5 F 08/30/20 00:00 Pulse 75 08/30/20 03:47 Resp 16 08/30/20 07:29 BP 184/81 H 08/30/20 03:47 Pulse Ox 94 08/30/20 03:47 Body Mass Index 28.9 Const: Other: Constitutional Awake and Alert, No apparent distress Neck Supple, No lymphadenopathy Cardiovascular RRR, No M/R/G, S1 S2, No S3 S4, 2+ pedal edema Respiratory Lungs clear, No respiratory distress Gastrointestinal mild tenderness, distended, signs of ascites Skin No rash-stasis dermatitis of both lower legs Neurological Alert & oriented x3 Psychological Appropriate affect Objective Data Current Medications Generic Name Dose Route Start Last Admin Trade Name Freq PRN Reason Stop Dose Admin Acetaminophen 650 mg 08/29/20 20:17 Acetaminophen 325 Mg Tablet PO Q6H PRN Pain, Mild (Pain Scale 1-3) Hydromorphone HCl 0.5 mg 08/29/20 21:02 08/30/20 07:26 Hydromorphone Hcl 0.5 Mg/0.5 Ml Syringe IVPUSH 0.5 mg Q4H PRN Administration Breakthrough Pain Sodium Chloride 1,000 mls @ 100 mls/hr 08/29/20 20:30 08/30/20 09:04 Ns IVCONT 100 mls/hr .Q10H DOMINICK Administration Ceftriaxone Sodium 1 gm/ 50 mls @ 100 mls/hr 08/30/20 18:00 Sodium Chloride IV Q24H [facility] Consult 1 each 08/29/20 17:54 Consult Rx Perform Med Rec MISCELLANE ONCE PRN Consult order Sodium Chloride 3 ml 08/30/20 00:00 08/30/20 09:04 0.9 % Sodium Chloride Flush 3 Ml Syringe IVFLUSH Not Given QSHIFT [facility] Labs CBC & Chem 7: 08/30/20 12:46 08/30/20 12:46 Assessment and Plan (1) NONI (acute kidney injury): Status: Acute Assessment and Plan: 69-year-old female with a past medical history of opiate dependence on methadone, tobacco dependence, COPD presented to the hospital with a chief complaint of abdominal pain/weight loss/nausea/vomiting/poor oral intake. Abdominal mass/Pelvis mass, ascites (7.8 x 4.8 x 5.0 cm complex cystic structure in the right pelvis. Its unclear if this is adnexal in etiology or could reflect loculated ascites, suspect this to be likely ovarian origin. Internet Marketing Manager eval for further direction of care. Oncology eval pending as well Pain control with morphine CEA level pending Liver cirrhosis/new onset ascites: IR consult for diagnostic tap. Will obtain NATHANIEL panel, EBV, CMV, hepatitis panel. Gastroenterology consult for further recommendations. UTI: Continue ceftriaxone. Follow up cultures. NONI:likely pre renal vs obstructive urolopathy, Uro consult, IVF repet tomorrow. Better Tobacco dependence: Counseled on smoking cessation COPD: Stable. Celeste p.r.n. Opiate dependence: Patient on methadone 105 mg daily. Will consult Addiction Medicine for confirmation and continuation of methadone. Prophylaxis: SCD boots Code status: Full code
--- NOTE | 2020-08-30 11:40 | PM.GICN ---
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 She is also complaining of some constipation over the last 3 weeks. Her last bowel movement was 3 days ago but it was very small and pellet-like. She denies any shortness of breath, cough or chest pain. She has had lower extremity swelling over the last 2 weeks with no pain. Feeling generally weak, decreased movement at home. Family at bedside very concerned. Received moderna 2nd vaccine one month ago. ER course: Per ER team patient noted to have a distended abdomen, tender, no guarding; CT abdomen showed home in liver cirrhosis with the new onset ascites, right adnexal mass; on the labs noted to have elevated AP, NONI and UTI. Patient has no signs of encephalopathy. Neurological exam benign. Will CT chest showed cardiomegaly otherwise no acute findings. Her troponins ended from 8. Admitted to the hospital for further management. History was obtained from the patient and her 2 daughters who were at the bedside. Daughter reports that patient noted a lump in her abdomen in January 2020 and refused to see a physician for evaluation. One of her daughters came from [place] and was able to convince the patient to come to [facility] yesterday. Patient complains of persistent lower abdominal pain which radiates laterally, nausea, vomiting, dizziness and unsteady gait with frequent falls. He has had worsening heartburn with regurgitation. She complains of constipation with bowel movement every 1-2 weeks. She denies noticing any melena or hematochezia She has been taking prune juice and a a chocolate containing laxative for constipation with inconsistent results. Patient admits to decreased p.o. intake with weight loss. She has been having night sweats and denies fever or chills. Patient has COPD and is on home oxygen. Patient denies loud snoring or sleep apnea Denies problems with anesthesia in the past. Denies being on chronic anticoagulation. Patient smokes half pack per day of cigarettes since age 16 years. She denies EtOH abuse. Patient lives with her boyfriend and has 5 children and 10 grandchildren. 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 A sister has breast cancer. IMAGING STUDIES: 08/29/[address] SCAN SHOWED: No acute pneumonic consolidation. There are small pulmonary nodules measuring 2 to 4 mm. No abnormal mediastinal or axillary adenopathy. Mildly heterogenous spleen likely related to slow contrast uptake. Mild right hydronephrosis with no obstructive etiology seen. There is a right renal cyst. Moderate constipation without obstruction. Diffuse ascites and mild anasarca. Loculated fluid collection versus ovarian cyst right adnexa. Moderate free fluid is seen in the pelvis. Liver cirrhosis suspected. Small right inguinal hernia containing fluid and small hiatal hernia. 08/29/20 PELVIC ULTRASOUND SHOWED: 7.8 x 4.8 x 5.0 cm complex cystic structure in the right pelvis. Its unclear if this is adnexal in etiology or could reflect loculated ascites. Consider MRI with and without contrast for further evaluation as clinically indicated. ENDOSCOPIC STUDIES: Patient denies having an upper endoscopy or colonoscopy in the past PAST GI HISTORY BY REVIEW OF MEDICAL RECORDS: No GI visits in [facility] or [facility] Review of Systems Constitutional: Constitutional: Denies fever(s), Denies headache(s), Reports night sweats and Reports weight loss Eyes: Eyes: Denies eye discharge and Denies irritation ENT: Reports Normal hearing present, Denies dysphagia, Denies dizziness and Denies headache(s) Cardiovascular: Cardiovascular: Denies chest pain, Reports leg edema, Reports dyspnea and Reports dyspnea on exertion Respiratory: Respiratory: Denies cough, Reports dyspnea and Reports dyspnea on exertion Gastrointestinal: Gastrointestinal: Reports abdominal pain, Reports bloating, Reports change in bowel habits, Reports constipation, Denies dysphagia, Reports heartburn, Reports nausea and Reports vomiting Genitourinary: Genitourinary: Denies difficulty voiding and Denies dysuria Musculoskeletal: Musculoskeletal: Denies back pain and Denies arthralgias Integumentary/Breasts: Skin/Breast: Denies pruritus, Denies rash and Denies jaundice Neurologic: Reports Normal hearing present, Denies Abnormal speech present, Denies dizziness, Denies headache(s) and Denies seizure-like activity Psychiatric: Psychiatric: Denies anxiety, Denies depression and Denies panic attacks Endocrine: Endocrine: Denies cold intolerance, Denies flushing and Denies heat intolerance Hematologic/Lymphatic: Hematologic/Lymphatic: Denies easy bleeding and Denies easy bruising PMFSH Past Medical History Medical History COPD (chronic obstructive pulmonary disease) Surgical History Surgical History History of cholecystectomy S/P lumpectomy, right breast Social History Social History (Updated 08/31/20 @ 16:58 by Giulia Wynn MD) Household Members: Significant Other Housing: Apartment Do you presently have visiting nurse or other home services: No Alcohol intake: never Patient Tobacco Use Status: Current everyday Tobacco user Tobacco use type: Cigarette Second Hand Smoke Exposure: No Substance Use Type: Opiates and Painkillers Advance Directives Date on File: 08/30/20 service: No Current occupational status: retired [employer] Allergies Allergy/AdvReac Type Severity Reaction Status Date / Time lisinopril [LISINOPRIL] Allergy Severe ANAPHYLAXIS, Verified 08/31/20 10:37 THROAT SWELLS fluoxetine [Prozac] Allergy Unknown Anaphylaxis Verified 08/31/20 10:37 From PROZAC Allergy Severe INVOLUNTARY Uncoded 12/05/19 15:31 SPASMS Active Medications: Current Medications Generic Name Dose Route Start Last Admin Trade Name Freq PRN Reason Stop Dose Admin Acetaminophen 650 mg 08/29/20 20:17 Acetaminophen 325 Mg Tablet PO Q6H PRN Pain, Mild (Pain Scale 1-3) Hydromorphone HCl 0.5 mg 08/29/20 21:02 08/30/20 07:26 Hydromorphone Hcl 0.5 Mg/0.5 Ml Syringe IVPUSH 0.5 mg Q4H PRN Administration Breakthrough Pain Sodium Chloride 1,000 mls @ 100 mls/hr 08/29/20 20:30 08/30/20 09:04 Ns IVCONT 100 mls/hr .Q10H DOMINICK Administration Ceftriaxone Sodium 1 gm/ 50 mls @ 100 mls/hr 08/30/20 18:00 Sodium Chloride IV Q24H [facility] Pharmacy Consult 1 each 08/29/20 17:54 Consult Rx Perform Med Rec MISCELLANE ONCE PRN Consult order Sodium Chloride 3 ml 08/30/20 00:00 08/30/20 09:04 0.9 % Sodium Chloride Flush 3 Ml Syringe IVFLUSH Not Given QSHIFT [facility] Home Medications Medication Instructions Recorded Confirmed Last Taken Type methadone 105 mg PO QAM 08/30/20 08/30/20 08/29/20 History 0800 Physical Exam Vital Signs: Vital Signs: Last Vital Signs Temp 98.5 F 08/30/20 00:00 Pulse 75 08/30/20 03:47 Resp 16 08/30/20 07:29 BP 184/81 H 08/30/20 03:47 Pulse Ox 94 08/30/20 03:47 Body Mass Index 28.9 Const: General: healthy appearing and no acute distress Nutritional Appearance: average body habitus Orientation/consciousness: patient oriented x3 Limitations: no limitations HENMT: Head: Yes normal to inspection Ears: hearing grossly normal bilaterally Mouth: Normal oral and palatal mucosa present Eyes: Sclerae: sclerae normal Pupils: Equal, round and reactive pupils present Neck: Neck: Yes normal visual inspection Chest: Chest palpation & inspection: normal inspection of the chest Resp: Effort & Inspection: normal respiratory effort Auscultation: rales (at both bases) Cardio: Palpation: normal PMI Rate: regular rate Rhythm: regular rhythm Heart sounds: S1 normal heart sound present, S2 normal heart sound present and no murmurs GI: Inspection: Yes scar (Upper midline scar of past cholecystectomy) Palpation (GI): Soft to palpation, Tenderness to palpation present (GI) (diffuse tenderness without rebound), No hepatosplenomegaly present, Palpable mass present (Hard mass extending to the LUQ from the umbilicus - approx 6 x 6 cms) and Ascites present Auscultation: normal bowel sounds Rectal Exam - Female: deferred Skin: General skin exam: no rashes or lesions noted Neuro: General: patient oriented x3, gait normal and moves all extremities Cranial nerves: Yes Equal, round and reactive pupils present and Yes Normal hearing present Speech: No Abnormal speech present Psych: Appearance: grossly normal Mental Status: mental status grossly normal Results Labs CBC & Chem 7: 09/03/20 16:21 09/04/20 05:40 Labs: Short CBC 08/29/20 Range/Units 11:56 WBC 13.0 H (4.8-10.8) X10*3/uL Hgb 10.9 L (12.0-16.0) g/dl Hct 35.1 L (37-47) % Plt Count TNP BMP 08/29/20 11:56 Sodium 138 Potassium 5.2 H Chloride 97 Carbon Dioxide 26 BUN 32 H Creatinine 2.07 H Calcium 9.7 Cardiac Enzymes 08/29/20 Range/Units 11:56 Total Creatine Kinase 21 L (26-140) U/L Liver Function 08/29/20 Range/Units 11:56 Total Bilirubin 0.2 (0.0-1.0) mg/dL Direct Bilirubin < 0.2 (0.0-0.5) mg/dL AST 23 (5-31) U/L ALT < 6 (0-31) U/L Alkaline Phosphatase 732 H (39-117) U/L Albumin 3.7 (3.5-5.0) g/dL Urine 08/29/20 Range/Units 16:57 Urine Color YELLOW Urine Appearance CLOUDY Urine pH 5.5 (5.0-8.0) Ur Specific [place] >= 1.030 H (1.005-1.025) Urine Protein 2+ H (NEG-TRACE) MG/DL Urine Glucose (UA) NEG (NEG) MG/DL Microbiology Microbiology Results: Microbiology 08/29/20 Unknown Urine clean catch - Clean Catch Midstream Urine Culture - Final Assessment and Plan (1) Ascites: Status: Acute (2) Abnormal weight loss: Status: Acute (3) Generalized continuous abdominal pain: Status: Acute 69 YF with COPD admitted with the worsening abdominal pain with an enlarging intra-abdominal mass, lower extremity edema, constipation and significant weight loss. Labs showed mild anemia, elevated LDH, alkaline phosphatase and renal insufficiency Imaging studies show a 7.8 x 4.8 x 5.0 cm complex cystic structure in the right pelvis. Abd CT scan showed Mild right hydronephrosis with no obstructive etiology seen. There is a right renal cyst. Moderate constipation without obstruction. Diffuse ascites and mild anasarca. 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 RECOMMENDATIONS: 1. Agree with checking hepatitis serologies and proceeding with a diagnostic peritoneal tap with ascitic fluid analysis for cell count and diff, albumin, protein, LDH and cytology. 2. MiraLax twice daily for constipation - order placed. 3. Repeat Alk Phosphatase with isoenzymes to determine if elevated alkaline phosphatase is from the liver or bone. 4. Further recommendation as per OBGYN. Procedures Date of Service Date of Service: 08/30/20
[2020-08-30 12:52] LABS: Basophils Percent Auto 0.3 % (0-2); Eosinophils Absolute Auto 0.1 X10*3/uL (0.0-0.4); Eosinophils Percent Auto 0.4 % (0-4); Hematocrit 35.8 % (37-47); Hemoglobin 11.3 g/dl (12.0-16.0); Imm Gran Abs Auto 0.07 X10*3/uL (0.00-0.03); Imm Gran Pct Auto 0.5 % (0.0-0.4); Lymphocytes Absolute Auto 0.5 X10*3/uL (1.2-4.9); Lymphocytes Percent Auto 3.8 % (20-40); MANUAL DIFF FLAG SCAN; Mean Corpuscular HGB Conc 31.6 g/dl (31.0-35.0); Mean Corpuscular Hemoglobin 29.4 pg (27.0-33.0); Mean Corpuscular Volume 93.2 fL (80-98); Mean Platelet Volume 9.1 fL (9.4-12.3); Monocytes Absolute Auto 0.5 X10*3/uL (0.1-1.2); Monocytes Percent Auto 3.8 % (2-11); Neutrophils Absolute Auto 12.5 X10*3/uL (2.0-8.3); Neutrophils Percent Auto 91.2 % (45-73); Platelet Count 319 X10*3/uL (160-400); Red Blood Count 3.84 X10*6/uL (4.20-5.50); Red Cell Distribution Width 17.1 % (11.0-16.0); SCAN SMEAR FLAG 1; White Blood Count 13.7 X10*3/uL (4.8-10.8)
--- NOTE | 2020-08-30 12:57 | PM.GYNCN ---
[employer]PER[employer]OR [employer] - CN: HPI Data of Consult Consult date: 08/30/20 Requesting Physician: Rishabh Cervantes MD Primary Care Provider: Mounika Martinez NP Consult Narrative Narrative: I was consulted by Dr. Cervantes regarding Ms. Trinity Wyatt who is a 69 year old female presented to the emergency room with few months history of diffuse abdominal associated with nausea and vomiting. Pelvic ultrasound showed: 7.8 x 4.8 x 5.0 cm complex cystic structure in the right pelvis. Its unclear if this is adnexal in etiology CT of abdomen and pelvis: Several small pulmonary nodules measuring 2 to 4 mm. Mild right hydronephrosis, a right renal cyst, moderately dilated right kidney pelvis and ureter extending to the mid abdomen and lost beyond that ; Diffuse ascites, Loculated fluid collection versus ovarian cyst right adnexa. Moderate free fluid is seen in the pelvis, Liver cirrhosis suspected. Small right inguinal hernia containing fluid and small hiatal hernia. Umbilical hernia. cc:: CC: Rishabh Cervantes MD [employer] - Review of Systems Review of Systems ROS Unobtainable: All systems reviewed & are unremarkable except as noted in HPI and below Cardiovascular: Denies Palpatations, Loss of consciousness and Chest pain Respiratory: Denies Cough, Wheezing and Shortness of breath Musculoskeletal: Denies Low back pain Gastrointestinal: Denies Heartburn, Constipation, Diarrhea, Nausea and Vomiting Genitourinary: Denies Pain with urination, Burning with urination and Urinary frequency Neurological: Denies Migranes Psychological: Denies Depression OB [facility] Social History Social History Alcohol intake: never Patient Tobacco Use Status: Current everyday Tobacco user Use of substances other than those prescribed or required for medical reasons: No Advance Directives: Yes Advance Directives Information Provided: Yes Advance Directives on File: No Meds Allergies Allergy/AdvReac Type Severity Reaction Status Date / Time fluoxetine [Prozac] Allergy Unknown Verified 11/28/12 00:00 lisinopril [LISINOPRIL] Allergy Unknown ANAPHYLAXIS, Unverified 12/05/19 15:31 THROAT SWELLS From PROZAC Allergy Severe INVOLUNTARY Uncoded 12/05/19 15:31 SPASMS Active Medications: Current Medications Generic Name Dose Route Start Last Admin Trade Name Freq PRN Reason Stop Dose Admin Acetaminophen 650 mg 08/29/20 20:17 Acetaminophen 325 Mg Tablet PO Q6H PRN Pain, Mild (Pain Scale 1-3) Hydromorphone HCl 0.5 mg 08/29/20 21:02 08/30/20 07:26 Hydromorphone Hcl 0.5 Mg/0.5 Ml Syringe IVPUSH 0.5 mg Q4H PRN Administration Breakthrough Pain Sodium Chloride 1,000 mls @ 100 mls/hr 08/29/20 20:30 08/30/20 09:04 Ns IVCONT 100 mls/hr .Q10H DOMINICK Administration Ceftriaxone Sodium 1 gm/ 50 mls @ 100 mls/hr 08/30/20 18:00 Sodium Chloride IV Q24H [facility] Pharmacy Consult 1 each 08/29/20 17:54 Consult Rx Perform Med Rec MISCELLANE ONCE PRN Consult order Sodium Chloride 3 ml 08/30/20 00:00 08/30/20 09:04 0.9 % Sodium Chloride Flush 3 Ml Syringe IVFLUSH Not Given QSHIFT [facility] Home Medications Medication Instructions Recorded Confirmed Last Taken Type methadone 105 mg PO QAM 08/30/20 08/30/20 08/29/20 History 0800 [employer] Physical Exam Vitals Vital signs: Temp Pulse Resp BP Pulse Ox 98.5 F 75 16 184/81 H 94 08/30/20 00:00 08/30/20 03:47 08/30/20 07:29 08/30/20 03:47 08/30/20 03:47 Body Mass Index 28.9 Constitutional General Appearance: Healthy appearing, Well-nourished and Well-developed Psychiatric Mood and Affect: active and alert, normal mood and normal affect Skin Appearance: No rashes and No lesions Lungs Respiratory Effort: No intercostal retractions Auscultation: Clear to auscultation Cardiovascular Auscultation: RRR Abdomen Auscultation/Inspection/Palpation: Normal bowel sounds, Soft, Distended, Tenderness (Diffuse) and Other (No guarding or rebound, umbilical mass felt) Hernia: Umbilical Female Genitalia (Pelvic) Exam: Deferred [employer] - Results Labs CBC & Chem 7: 08/30/20 12:46 08/29/20 11:56 Labs: Short CBC 08/30/20 Range/Units 12:46 WBC 13.7 H (4.8-10.8) X10*3/uL Hgb 11.3 L (12.0-16.0) g/dl Hct 35.8 L (37-47) % Plt Count 319 (160-400) X10*3/uL Cardiac Enzymes 08/29/20 Range/Units 11:56 Total Creatine Kinase 21 L (26-140) U/L Liver Function 08/29/20 Range/Units 11:56 Total Bilirubin 0.2 (0.0-1.0) mg/dL Direct Bilirubin < 0.2 (0.0-0.5) mg/dL AST 23 (5-31) U/L ALT < 6 (0-31) U/L Alkaline Phosphatase 732 H (39-117) U/L Albumin 3.7 (3.5-5.0) g/dL Urine 08/29/20 Range/Units 16:57 Urine Color YELLOW Urine Appearance CLOUDY Urine pH 5.5 (5.0-8.0) Ur Specific [place] >= 1.030 H (1.005-1.025) Urine Protein 2+ H (NEG-TRACE) MG/DL Urine Glucose (UA) NEG (NEG) MG/DL Assessment and Plan (1) NONI (acute kidney injury): Status: Acute With mild hydronephrosis , dilated ureter, the ovarian mass could be obstructing the right ureter and causing NONI. Recommend Urology consult for possible ureteral stent insertion or nephrostomy, if NONI could not be reversed, consider transfer to [facility] Finance And Administration Manager Oncology service for possible surgical intervention with oophorectomy and possible ovarian cancer staging. (2) Adnexal mass: Status: Acute Clinical scenario suspicious for ovarian cancer with possible metastatis, with the findings on ultrasound and CT scan showing a complex ovarian cyst, ascites, multiple pulmonary nodules and and umbilical mass identified on physical exam (although not seen on a CT scan). Add to Alpha fetoprotein and CEA , LDH, CA 19- 9, CA 125 as tumor markers for ovarian cancer, (likely possibility of false elevation secondary to renal failure), Consider biopsy of the umbilical mass especially if identified on MRI, ascites aspiration to identify any possible cancer cells, and pulmonary nodule biopsy if possible. If NONI is reversed and the patient is able to be discharged home , refer to Finance And Administration Manager Oncology service at [facility] for management if not, consider in patient transfer to Finance And Administration Manager Oncology Service at [facility].
--- NOTE | 2020-08-30 13:09 | P.CONGS_ITS ---
History of Present Illness Consult details Consult date: 08/30/20 Reason for consult: abdominal pain Requesting physician: Adrian Garcia Narrative: this is a 69-year-old female who presented to the emergency department for evaluation of abdominal pain late yesterday. She gives a history of approximately 6 months duration of abdominal discomfort, diminished appetite and weight loss of over 25 lb. Recently, she has experienced increasing abdominal distension. She reports constipation. She has no urinary complaints. Her past history is significant for COPD. She is on home oxygen therapy, which she uses on a p.r.n. basis. She also has a remote history of opioid use and has been maintained on methadone for about 20 years. Workup in the emergency department included a CT scan of the abdomen and pelvis that showed marked ascites. The liver was noted to be lobulated and the possibility of cirrhosis was noted. the presence of a cystic mass in the right pelvis was suspected as well. Dilated right renal pelvis and ureter were noted with cut off at the level of the suspected right pelvic mass. Umbilical hernia was noted. Pelvic ultrasound was obtained as well and revealed a complex cystic structure in the right hemipelvis, possibly a cystic mass or loculated ascitic fluid. Further evaluation with MRI was suggested. White blood count is mildly elevated, 13.7. Review of Systems Constitutional: Constitutional: Denies chills, Denies fever(s), Reports lethargy, Reports poor appetite and Reports weight loss Cardiovascular: Cardiovascular: Denies chest pain, Denies syncope, Denies palpitations and Reports dyspnea on exertion Respiratory: Respiratory: Denies cough and Reports dyspnea on exertion Neurologic: Denies syncope and Reports memory loss Psychiatric: Psychiatric: Reports memory loss Endocrine: Endocrine: Denies palpitations Hematologic/Lymphatic: Comments: No history of bleeding or blood clots PMF Past Medical History Medical History (Updated 08/30/20 @ 13:40 by Mary Valenzuela MD) COPD (chronic obstructive pulmonary disease) Surgical History Surgical History (Updated 08/30/20 @ 13:39 by Mary Valenzuela MD) History of cholecystectomy Social History Social History Alcohol intake: never Patient Tobacco Use Status: Current everyday Tobacco user Use of substances other than those prescribed or required for medical reasons: No Advance Directives: Yes Advance Directives Information Provided: Yes Advance Directives on File: No Meds Allergies Allergy/AdvReac Type Severity Reaction Status Date / Time fluoxetine [Prozac] Allergy Unknown Verified 11/28/12 00:00 lisinopril [LISINOPRIL] Allergy Unknown ANAPHYLAXIS, Unverified 12/05/19 15:31 THROAT SWELLS From PROZAC Allergy Severe INVOLUNTARY Uncoded 12/05/19 15:31 SPASMS Active Medications: Current Medications Generic Name Dose Route Start Last Admin Trade Name Freq PRN Reason Stop Dose Admin Acetaminophen 650 mg 08/29/20 20:17 Acetaminophen 325 Mg Tablet PO Q6H PRN Pain, Mild (Pain Scale 1-3) Hydromorphone HCl 0.5 mg 08/29/20 21:02 08/30/20 07:26 Hydromorphone Hcl 0.5 Mg/0.5 Ml Syringe IVPUSH 0.5 mg Q4H PRN Administration Breakthrough Pain Sodium Chloride 1,000 mls @ 100 mls/hr 08/29/20 20:30 08/30/20 09:04 Ns IVCONT 100 mls/hr .Q10H DOMINICK Administration Ceftriaxone Sodium 1 gm/ 50 mls @ 100 mls/hr 08/30/20 18:00 Sodium Chloride IV Q24H [facility] Pharmacy Consult 1 each 08/29/20 17:54 Consult Rx Perform Med Rec MISCELLANE ONCE PRN Consult order Sodium Chloride 3 ml 08/30/20 00:00 08/30/20 09:04 0.9 % Sodium Chloride Flush 3 Ml Syringe IVFLUSH Not Given QSHIFT [facility] Home Medications Medication Instructions Recorded Confirmed Last Taken Type methadone 105 mg PO QAM 08/30/20 08/30/20 08/29/20 History 08 Physical Exam Vital Signs: Vital Signs: Last Vital Signs Temp 98.5 F 08/30/20 00:00 Pulse 75 08/30/20 03:47 Resp 16 08/30/20 07:29 BP 184/81 H 08/30/20 03:47 Pulse Ox 94 08/30/20 03:47 Body Mass Index 28.9 Const: General: no acute distress and alert Nutritional Appearance: underweight HENMT: Head: Yes normocephalic and Yes atraumatic Eyes: Sclerae: sclerae normal EOM: EOMs intact bilaterally Neck: Neck: Yes trachea midline and Yes supple Resp: Effort & Inspection: normal respiratory effort Auscultation: clear to auscultation bilaterally Cardio: Rate: regular rate Rhythm: regular rhythm GI: Other: distended, firm, mildly tender diffusely, skin of umbilicus were all with slight serosanguineous weeping, indurated Skin: Other: generally warm and dry Results Labs Result diagrams: 08/30/20 12:46 08/30/20 12:46 Labs: Abnormal lab results 08/29/20 08/29/20 08/29/20 Range/Units 11:56 11:56 14:42 WBC (4.8-10.8) X10*3/uL RBC (4.20-5.50) X10*6/uL Hgb (12.0-16.0) g/dl Hct (37-47) % RDW (11.0-16.0) % MPV (9.4-12.3) fL ESR 92 H (0-20) MM/HR PT 13.8 H (10.8-13.0) SEC INR 1.2 H (0.9-1.1) Alkaline Phosphatase 732 H (39-117) U/L Total Creatine Kinase 21 L (26-140) U/L Troponin I High Sens (<3.5-17.0) ng/L C-Reactive Protein 16.23 H (< or = 0.50) mg/dL Ur Specific [place] (1.005-1.025) Urine Protein (NEG-TRACE) MG/DL Urine Blood (NEG) Ur Leukocyte Esterase (NEG) Urine RBC (0) /HPF Urine WBC (0-4) /HPF 08/29/20 08/29/20 08/30/20 Range/Units 16:57 18:37 12:46 WBC 13.7 H (4.8-10.8) X10*3/uL RBC 3.84 L (4.20-5.50) X10*6/uL Hgb 11.3 L (12.0-16.0) g/dl Hct 35.8 L (37-47) % RDW 17.1 H (11.0-16.0) % MPV 9.1 L (9.4-12.3) fL ESR (0-20) MM/HR PT (10.8-13.0) SEC INR (0.9-1.1) Alkaline Phosphatase (39-117) U/L Total Creatine Kinase (26-140) U/L Troponin I High Sens 17.2 H* (<3.5-17.0) ng/L C-Reactive Protein (< or = 0.50) mg/dL Ur Specific [place] >= 1.030 H (1.005-1.025) Urine Protein 2+ H (NEG-TRACE) MG/DL Urine Blood 2+ H (NEG) Ur Leukocyte Esterase 1+ H (NEG) Urine RBC 15-29 H (0) /HPF Urine WBC 30-49 H (0-4) /HPF Short CBC 08/30/20 Range/Units 12:46 WBC 13.7 H (4.8-10.8) X10*3/uL Hgb 11.3 L (12.0-16.0) g/dl Hct 35.8 L (37-47) % Plt Count 319 (160-400) X10*3/uL Cardiac Enzymes 08/29/20 Range/Units 11:56 Total Creatine Kinase 21 L (26-140) U/L Liver Function 08/29/20 Range/Units 11:56 Total Bilirubin 0.2 (0.0-1.0) mg/dL Direct Bilirubin < 0.2 (0.0-0.5) mg/dL AST 23 (5-31) U/L ALT < 6 (0-31) U/L Alkaline Phosphatase 732 H (39-117) U/L Albumin 3.7 (3.5-5.0) g/dL Urine 08/29/20 Range/Units 16:57 Urine Color YELLOW Urine Appearance CLOUDY Urine pH 5.5 (5.0-8.0) Ur Specific [place] >= 1.030 H (1.005-1.025) Urine Protein 2+ H (NEG-TRACE) MG/DL Urine Glucose (UA) NEG (NEG) MG/DL All other labs normal. Assessment and Plan (1) Ascites: Status: Acute (2) Adnexal mass: Status: Acute (3) Abnormal weight loss: Status: Acute this is a 69-year-old female presenting with a several month history of weight loss, abdominal discomfort, and more recent abdominal distension and pain. Workup including CT scan of the abdomen and pelvis and pelvic ultrasound suggest the presence of a cystic mass in the right pelvis causing right ureteral obstruction. Ascites is present and exam findings are most consistent with umbilical mass than fluid containing umbilical hernia. Overall picture is most concerning for an ovarian malignancy though other etiologies are possible. agree with plan for sampling of ascites for chemistry and cytology. Check CA 125. Urology consultation for right ureteral obstruction. Procedures Date of Service Date of Service: 08/30/20
[2020-08-30 13:12] LABS: SLIDE REVIEW VERIFIED
[2020-08-30 13:17] LABS: Anion Gap 17 (12-20); Blood Urea Nitrogen 29 mg/dL (9-16); Calcium 9.1 mg/dL (8.4-10.2); Carbon Dioxide 28 mmol/L (22-29); Chloride 99 mmol/L (96-108); Creatinine Clr Calc Pharmacy 27.6; Estimated Glomerular Filt Rate 26; Glucose Random 85 mg/dL (60-115); Magnesium 2.1 mg/dL (1.6-2.6); Potassium 4.6 mmol/L (3.3-5.1); Sodium 139 mmol/L (135-145)
[2020-08-30 13:34] LABS: Lactate Dehydrogenase 1854 U/L (122-220)
--- NOTE | 2020-08-30 14:10 | MHC.CM.PN ---
Met with patient and family in regards to discharge planning. Patient lives with a friend, ambulates independently and had no services prior to coming to the hospital. Patient was seeing Mounika Martinez as a PCP. However, Mounika left the practice. Patient is still active with [facility]. HCP completed, signed and witnessed. Original given to patient. Copy placed in chart. IMM explained and signed. Patient's family will transport patient home when medically stable. Daughters are concerned patient needs more help at home due to increasing confusion. Patient is active with [facility]. T/W left a message with Moriah, transitions of care nurse of [facility]. Asked Moriah to reach out to patient's laboratory animal care veterinarian to help family get more services. Continue to monitor for d/c needs.
[2020-08-30] MEDS: Calcium Carbonate 750 MG TAB.CHEW PO ×2 (17:24→22:26)
[2020-08-30] MEDS: cefTRIAXone sodium 1 GM in 0.9 % Sodium Chloride 50 ML IV (18:47)
[2020-08-30] MEDS: polyethylene glycoL 3350 17 GM POWD.PACK PO (20:24)
[2020-08-31] VITALS (22 sets, daily range): BP systolic 148–180; BP diastolic 68–95; PULSE 75–94; RESP 16–20; TEMP 36.2–37; O2SAT 93–98
[2020-08-31 03:37] LABS: HBc Num1 8.94 S/CO (0.00-0.79); HBsAGNum1 0.19 S/CO (0.00-0.99); Hepatitis B Surface Antigen Negative (Negative); ~HepC Num1 10.49 S/CO (0.00-0.79); ~Hepatitis C Antibody Reactive (Nonreactive)
[2020-08-31 03:50] LABS: ~Hepatitis B Surface Antibody REACTIVE (Nonreactive)
[2020-08-31] MEDS: HYDROmorphone HCl 0.5 MG/0.5 ML SYRINGE IVPUSH ×3 (04:04→12:01)
[2020-08-31] MEDS: 0.9 % Sodium Chloride 1,000 ML 100 ML IVCONT ×2 (04:04→12:02)
[2020-08-31 04:23] LABS: HBc Num2 8.67 S/CO; HBc Num3 9.09 S/CO; Hepatitis B Core Antibody Reactive (Nonreactive)
[2020-08-31] MEDS: 0.9 % Sodium Chloride Flush 3 ML SYRINGE IVFLUSH (08:02)
[2020-08-31] MEDS: polyethylene glycoL 3350 17 GM POWD.PACK PO (08:05)
--- NOTE | 2020-08-31 08:17 | P.CNHO_ITS ---
Subjective - Subjective Chief complaint: Consult for: Advanced ovarian carcinoma. Patient: new to practice Consult date: 08/31/20 Requesting Physician: Billy. Primary Care Provider: Mounika Martinez NP Medical Summary: DIAGNOSIS: ADVANCED OVARIAN CARCINOMA. HPI - Consult Narrative Reason for consult: Consult for advanced ovarian carcinoma. Narrative: Trinity Wyatt is a pleasant unfortunate 69 year old lady, who presented with a few months history of diffuse abdominal associated with nausea and vomiting. Patient said that, over the past few days, she has been having abdominal discomfort which has been gradually worsening. Hence decided to come to the ER. Patient reported that over the past few weeks she has been losing weight-lost almost about 25 lb. Reported abdominal discomfort. Denies passing gas or having bowel movement. Per family members, she has been having issues with constipation. Denies any in blood in the stool. Reports nausea and vomiting. Also reports poor oral intake. Denies any cough or chest pain. Denies any palpitations. Denies any numbness tingling. Denies any urinary symptoms. Review of all other systems is negative except mentioned above. IMAGING: Pelvic ultrasound showed: 7.8 x 4.8 x 5.0 cm complex cystic structure in the right pelvis. Its unclear if this is adnexal in etiology CT of abdomen and pelvis: Several small pulmonary nodules measuring 2 to 4 mm. Mild right hydronephrosis, a right renal cyst, moderately dilated right kidney pelvis and ureter extending to the mid abdomen and lost beyond that ; Diffuse ascites, Loculated fluid collection versus ovarian cyst right adnexa. Moderate free fluid is seen in the pelvis, Liver cirrhosis suspected. Small right inguinal hernia containing fluid and small hiatal hernia. Umbilical hernia. Past medical history of: Opiate dependence on methadone program, COPD, tobacco dependence. Social History: Patient denies any alcohol or illicit drug use. Denies any recent travel or sick contacts. Review of Systems - Constitutional Reports lack of energy, Reports poor appetite - Eyes Reports system reviewed and no additional complaints, except as documented - ENT Reports system reviewed and no additional complaints, except as documented - Cardiovascular Reports system reviewed and no additional complaints, except as documented - Respiratory Reports no additional respiratory complaints - Gastrointestinal Reports system reviewed and no additional complaints, except as documented - Genitourinary Reports no additional female genitourinary complaints - Musculoskeletal Reports system reviewed and no additional complaints, except as documented - Integumentary/Breasts Skin/Breast: Reports no additional skin complaints - Neurologic Reports system reviewed and no additional complaints, except as documented, Reports hearing normal, Reports memory loss, Denies abnormal speech, Denies dizziness, Denies syncope, Denies headache(s), Denies numbness, Denies seizure- like activity, Denies tingling, Denies weakness - Psychiatric Reports system reviewed and no additional complaints, except as documented - Endocrine Reports no additional endocrine complaints - Hematologic/Lymphatic Reports system reviewed and no additional complaints, except as documented - Allergic/Immunologic Reports system reviewed and no additional complaints, except as documented Oncology Screenings - ECOG Performance Status ECOG Performance Status: 1 [facility] Medical History: Medical History (Last Reviewed 08/31/20 @ 19:14 by Carla Enamorado) COPD (chronic obstructive pulmonary disease) Functional capacity: uses cane/walker Patient : No Surgical History: Surgical History (Last Reviewed 08/31/20 @ 19:14 by Carla Enamorado) History of cholecystectomy S/P lumpectomy, right breast Social History: Social History (Last Updated 08/31/20 @ 16:58 by Giulia Wynn) Living Situation History: Household Members: Significant Other Housing: Apartment Do you presently have visiting nurse or other home services: No Alcohol History: Alcohol intake: never Tobacco History: Patient Tobacco Use Status: Current everyday Tobacco Tobacco use type: Cigarette Second Hand Smoke Exposure: No Substance Use History: Substance Use Type: Opiates Substance Use Type: Painkillers Advance Directives: Advance Directives Date on File: 08/30/20 Occupation Assessmet: service: No Current occupational status: retired Home Medications and Allergies Current Medications: Current Medications Generic Name Dose Route Start Last Admin Trade Name Freq PRN Reason Stop Dose Admin Acetaminophen 650 mg 08/29/20 20:17 Acetaminophen 325 Mg Tablet PO Q6H PRN Pain, Mild (Pain Scale 1-3) Calcium Carbonate 750 mg 08/30/20 17:18 08/30/20 22:26 Calcium Carbonate 750 Mg Tab.Chew PO 750 mg Q4H PRN Administration Dyspepsia Hydromorphone HCl 0.5 mg 08/29/20 21:02 08/31/20 08:02 Hydromorphone Hcl 0.5 Mg/0.5 Ml Syringe IVPUSH 0.5 mg Q4H PRN Administration Breakthrough Pain Sodium Chloride 1,000 mls @ 100 mls/hr 08/29/20 20:30 08/31/20 04:05 Ns IVCONT Not Given .Q10H DOMINICK Ceftriaxone Sodium 1 gm/ 50 mls @ 100 mls/hr 08/30/20 18:00 08/30/20 19:54 Sodium Chloride IV Infused Q24H DOMINICK Infusion Methadone HCl 100 mg 08/30/20 13:45 08/30/20 14:12 Methadone Hcl 1 Mg/0.1 Ml Oral.Conc PO 100 mg DAILY DOMINICK Administration Pharmacy Consult 1 each 08/29/20 17:54 Consult Rx Perform Med Rec MISCELLANE ONCE PRN Consult order Polyethylene Glycol 17 gm 08/30/20 21:00 08/31/20 08:05 Polyethylene Glycol 3350 17 Gm Powd.Pack PO 17 gm BID DOMINICK Administration Sodium Chloride 3 ml 08/30/20 00:00 08/31/20 08:02 0.9 % Sodium Chloride Flush 3 Ml Syringe IVFLUSH 3 ml QSHIFT DOMINICK Administration Home Medications Medication Instructions Recorded Confirmed Type methadone 105 mg PO QAM 08/30/20 08/30/20 History Allergies Allergy/AdvReac Type Severity Reaction Status Date / Time lisinopril [LISINOPRIL] Allergy Severe ANAPHYLAXIS, Verified 08/31/20 10:37 THROAT SWELLS fluoxetine [Prozac] Allergy Unknown Anaphylaxis Verified 08/31/20 10:37 From PROZAC Allergy Severe INVOLUNTARY Uncoded 12/05/19 15:31 SPASMS Physical Exam Vital signs: Vital Signs Temp 98.6 F 08/31/20 07:33 Pulse 76 08/31/20 07:33 Resp 18 08/31/20 08:02 BP 180/90 H 08/31/20 07:33 Pulse Ox 98 08/31/20 07:33 Intake & Output 08/30/20 08/31/20 08/31/20 18:59 06:59 18:59 Intake Total 833.333 / 2123.333 1290 / 2123.333 Balance 833.333 / 2123.333 1290 / 2123.333 Intake: Intake, Oral Amount 240 / 240 Intake, IV Amount 833.333 / 4201.114 5219 / 1883.333 cefTRIAXone sodium 1 gm In 0.9 50 / 50 % Sodium Chloride 50 ml @ 100 mls/hr IV Q24H DOMINICK Rx#: [id number] 0.9 % Sodium Chloride 1,000 ml 833.333 / 6967.292 3166 / 1833.333 @ 100 mls/hr IVCONT .Q10H DOMINICK Rx#:[id number] Other: Number of Unmeasured Voids 1 Urine Bathroom Urine Color Yellow Weight 74.1 kg - Constitutional Present: moderate distress - Routine HEENT Exam Head: Present: normocephalic Eye: Present: normal appearance ENT: Present: mucous membranes dry - Routine Neck Exam Present: supple. Absent: lymphadenopathy, tenderness - Routine Chest/Breast/Axilla Exam Breast: Absent: rashes - Routine Cardiovascular Exam Cardiovascular: Present: RRR, S2. Absent: rubs - Routine Abdominal Exam Present: distended, hypoactive bowel sounds, tenderness - Routine Extremities Exam Present: nontender Hem/Onc Consult Result - Labs CBC & Chem 7: 09/03/20 16:21 09/04/20 05:40 Labs: Short CBC 08/30/20 Range/Units 12:46 WBC 13.7 H (4.8-10.8) X10*3/uL Hgb 11.3 L (12.0-16.0) g/dl Hct 35.8 L (37-47) % Plt Count 319 (160-400) X10*3/uL BMP 08/30/20 12:46 Sodium 139 Potassium 4.6 Chloride 99 Carbon Dioxide 28 BUN 29 H Creatinine 1.90 H Calcium 9.1 D Assessment and Plan (1) Adnexal mass Status: Acute This is an unfortunate 69-year-old lady who is presenting with a several month history of weight loss, and abdominal discomfort and more recently abdominal pain and distension. Exam findings reveal umbilical mass than fluid containing umbilical hernia. Workup including CT scan of the abdomen and pelvis: No acute pneumonic consolidation. There are small pulmonary nodules measuring 2 to 4 mm. No abnormal mediastinal or axillary adenopathy. Mildly heterogenous spleen likely related to slow contrast uptake. Mild right hydronephrosis with no obstructive etiology seen. There is a right renal cyst. Moderate constipation without obstruction. Diffuse ascites and mild anasarca. Loculated fluid collection versus ovarian cyst right adnexa. Moderate free fluid is seen in the pelvis. Liver cirrhosis suspected. Small right inguinal hernia containing fluid and small hiatal hernia. The above CT scan findings and and pelvic ultrasound suggest the presence of a cystic mass in the right pelvis causing right ureteral obstruction. Diffuse Ascites is present. The clinical scenario is most concerning for an ovarian malignancy. PLAN: Urology consultation for right ureteral obstruction. To proceed with the paracentesis with sampling of ascites for chemistry and cytology. Biopsy of the umbilical nodule. Check Ca 125: [id number]. Thank you, CC: Genesis Guo. Lyndon León. Addendum: 09/01: Ascites: positive for malignancy. Umbilical nodule: Adenocarcinoma of Mullerian origin. Refer to rn obgyn oncology as an out pt.
--- NOTE | 2020-08-31 09:25 | P.CNUR_ITS ---
History of Present Illness Consult details Consult date: 08/31/20 Narrative: 69-year-old female Admission with little discomfort and unintended weight loss Background of methadone dependence for opiate use Imaging showed right-sided hydronephrosis with right adnexal cystic structure Elevated creatinine with indeterminate baseline - creatinine 1.9 Given creatinine elevation and right adnexal structure with hydronephrosis would suggest cystoscopy with right retrograde and stent placement This has been discussed with the patient who is willing to proceed PMFSH Past Medical History Medical History (Updated 08/31/20 @ 09:28 by Dao León MD) COPD (chronic obstructive pulmonary disease) Functional capacity: uses cane/walker Surgical History Surgical History (Updated 08/31/20 @ 08:21 by Betty Lawrence MD) History of cholecystectomy Social History Social History Household Members: Significant Other Housing: Apartment Do you presently have visiting nurse or other home services: No Alcohol intake: never Patient Tobacco Use Status: Current everyday Tobacco user Tobacco use type: Cigarette Second Hand Smoke Exposure: No Substance Use Type: Opiates and Painkillers Advance Directives Date on File: 08/30/20 service: No Current occupational status: retired Meds Allergies Allergy/AdvReac Type Severity Reaction Status Date / Time fluoxetine [Prozac] Allergy Unknown Verified 11/28/12 00:00 lisinopril [LISINOPRIL] Allergy Unknown ANAPHYLAXIS, Unverified 12/05/19 15:31 THROAT SWELLS From PROZAC Allergy Severe INVOLUNTARY Uncoded 12/05/19 15:31 SPASMS Active Medications: Current Medications Generic Name Dose Route Start Last Admin Trade Name Freq PRN Reason Stop Dose Admin Acetaminophen 650 mg 08/29/20 20:17 Acetaminophen 325 Mg Tablet PO Q6H PRN Pain, Mild (Pain Scale 1-3) Calcium Carbonate 750 mg 08/30/20 17:18 08/30/20 22:26 Calcium Carbonate 750 Mg Tab.Chew PO 750 mg Q4H PRN Administration Dyspepsia Hydromorphone HCl 0.5 mg 08/29/20 21:02 08/31/20 08:02 Hydromorphone Hcl 0.5 Mg/0.5 Ml Syringe IVPUSH 0.5 mg Q4H PRN Administration Breakthrough Pain Sodium Chloride 1,000 mls @ 100 mls/hr 08/29/20 20:30 08/31/20 04:05 Ns IVCONT Not Given .Q10H DOMINICK Ceftriaxone Sodium 1 gm/ 50 mls @ 100 mls/hr 08/30/20 18:00 08/30/20 19:54 Sodium Chloride IV Infused Q24H DOMINICK Infusion Levofloxacin 500 mg in 100 mls @ 100 mls/hr 08/31/20 09:23 Levaquin IV 08/31/20 10:22 PREOP ONE Methadone HCl 100 mg 08/30/20 13:45 08/31/20 09:07 Methadone Hcl 1 Mg/0.1 Ml Oral.Conc PO 100 mg DAILY DOMINICK Administration Pharmacy Consult 1 each 08/29/20 17:54 Consult Rx Perform Med Rec MISCELLANE ONCE PRN Consult order Polyethylene Glycol 17 gm 08/30/20 21:00 08/31/20 08:05 Polyethylene Glycol 3350 17 Gm Powd.Pack PO 17 gm BID DOMINICK Administration Sodium Chloride 3 ml 08/30/20 00:00 08/31/20 08:02 0.9 % Sodium Chloride Flush 3 Ml Syringe IVFLUSH 3 ml QSHIFT DOMINICK Administration Home Medications Medication Instructions Recorded Confirmed Last Taken Type methadone 105 mg PO QAM 08/30/20 08/30/20 08/29/20 History 0800 Physical Exam Vital Signs: Vital Signs: Last Vital Signs Temp 98.6 F 08/31/20 07:33 Pulse 76 08/31/20 07:33 Resp 18 08/31/20 08:02 BP 180/90 H 08/31/20 07:33 Pulse Ox 98 08/31/20 07:33 Body Mass Index 28.9 Const: General: cooperative, healthy appearing, comfortable and no acute di stress Nutritional Appearance: average body habitus [place] ation/consciousness: oriented to person, oriented to place and oriented to time Eyes: General: appearance normal, both eyes and all related structures Chest: Chest palpation & inspection: normal inspection of the chest Resp: Effort & Inspection: normal respiratory effort Cardio: Rate: regular rate GI: Inspection: Yes normal to inspection Skin: Hair: normal Neuro: General: oriented to person, oriented to place and oriented to time Extrem: General: Yes normal to inspection Results Labs Result diagrams: 08/30/20 12:46 08/30/20 12:46 Labs: Abnormal lab results 08/30/20 08/30/20 08/30/20 Range/Units 12:46 12:46 12:46 WBC 13.7 H (4.8-10.8) X10*3/uL RBC 3.84 L (4.20-5.50) X10*6/uL Hgb 11.3 L (12.0-16.0) g/dl Hct 35.8 L (37-47) % RDW 17.1 H (11.0-16.0) % MPV 9.1 L (9.4-12.3) fL Immature Gran % (Auto) 0.5 H (0.0-0.4) % Neut % (Auto) 91.2 H (45-73) % Lymph % (Auto) 3.8 L (20-40) % Lymph # (Auto) 0.5 L (1.2-4.9) X10*3/uL Abs Immat Gran (auto) 0.07 H (0.00-0.03) X10*3/uL Absolute Neuts (auto) 12.5 H (2.0-8.3) X10*3/uL BUN 29 H (9-16) mg/dL Creatinine 1.90 H (0.5-1.4) mg/dL Lactate Dehydrogenase 1854 H (122-220) U/L Hepatitis C Ab (EIA) Reactive H (Nonreactive) Short CBC 08/30/20 Range/Units 12:46 WBC 13.7 H (4.8-10.8) X10*3/uL Hgb 11.3 L (12.0-16.0) g/dl Hct 35.8 L (37-47) % Plt Count 319 (160-400) X10*3/uL BMP 08/30/20 12:46 Sodium 139 Potassium 4.6 Chloride 99 Carbon Dioxide 28 BUN 29 H Creatinine 1.90 H Calcium 9.1 D Urine 08/29/20 Range/Units 16:57 Urine Color YELLOW Urine Appearance CLOUDY Urine pH 5.5 (5.0-8.0) Ur Specific [place] >= 1.030 H (1.005-1.025) Urine Protein 2+ H (NEG-TRACE) MG/DL Urine Glucose (UA) NEG (NEG) MG/DL All other labs normal. There is a moderately dilated right kidney pelvis and ureter extending to the mid abdomen and lost beyond that. The left kidney pelvis and the aorta are normal Assessment and Plan (1) Hydronephrosis: Status: Acute (2) NONI (acute kidney injury): Status: Acute Cystoscopy, right retrograde and right stent placement Procedures Date of Service Date of Service: 08/31/20
--- NOTE | 2020-08-31 09:46 | P.PNGS_ITS ---
Subjective Subjective Date of Service: 08/31/20 Interval history: She complains of abdominal pain No vomiting or nausea Physical Exam Vital Signs: Vital Signs: Last Vital Signs Temp 98.6 F 08/31/20 07:33 Pulse 76 08/31/20 07:33 Resp 18 08/31/20 08:02 BP 180/90 H 08/31/20 07:33 Pulse Ox 98 08/31/20 07:33 Body Mass Index 28.9 Const: Other: Sitting up on recliner General: no acute distress Resp: Effort & Inspection: normal respiratory effort Cardio: Rhythm: regular rhythm GI: Other: Distended with ascites, soft, diffusely tender, has discoloration w ith weeping of the umbilical skin Progress Note: A&P Assessment and plan (1) Adnexal mass: Status: Acute Assessment and Plan: The changes in his umbilicus may be secondary to his ascites with malignancy in the pelvis. She should be worked up for an ovarian malignancy. At this time, we can do dry dressing changes on the umbilicus I will follow along for wound care Fall Risk Details Current Medications: Current Medications Generic Name Dose Route Start Last Admin Trade Name Freq PRN Reason Stop Dose Admin Acetaminophen 650 mg 08/29/20 20:17 Acetaminophen 325 Mg Tablet PO Q6H PRN Pain, Mild (Pain Scale 1-3) Calcium Carbonate 750 mg 08/30/20 17:18 08/30/20 22:26 Calcium Carbonate 750 Mg Tab.Chew PO 750 mg Q4H PRN Administration Dyspepsia Hydromorphone HCl 0.5 mg 08/29/20 21:02 08/31/20 08:02 Hydromorphone Hcl 0.5 Mg/0.5 Ml Syringe IVPUSH 0.5 mg Q4H PRN Administration Breakthrough Pain Sodium Chloride 1,000 mls @ 100 mls/hr 08/29/20 20:30 08/31/20 04:05 Ns IVCONT Not Given .Q10H DOMINICK Ceftriaxone Sodium 1 gm/ 50 mls @ 100 mls/hr 08/30/20 18:00 08/30/20 19:54 Sodium Chloride IV Infused Q24H DOMINICK Infusion Levofloxacin 500 mg in 100 mls @ 100 mls/hr 08/31/20 10:00 Levaquin IV 08/31/20 10:59 PREOP ONE Methadone HCl 100 mg 08/30/20 13:45 08/31/20 09:07 Methadone Hcl 1 Mg/0.1 Ml Oral.Conc PO 100 mg DAILY DOMINICK Administration Pharmacy Consult 1 each 08/29/20 17:54 Consult Rx Perform Med Rec MISCELLANE ONCE PRN Consult order Polyethylene Glycol 17 gm 08/30/20 21:00 08/31/20 08:05 Polyethylene Glycol 3350 17 Gm Powd.Pack PO 17 gm BID DOMINICK Administration Sodium Chloride 3 ml 08/30/20 00:00 08/31/20 08:02 0.9 % Sodium Chloride Flush 3 Ml Syringe IVFLUSH 3 ml QSHIFT DOMINICK Administration Time Spent With Patient Time: Total time spent is greater than 50% in coordination of care (as documented) at patient's floor/unit and/or counseling patient: Time with patient: 15 - 24 minutes Procedures Date of Service Date of Service: 08/31/20
[2020-08-31 10:22] LABS: Anion Gap 20 (12-20); Blood Urea Nitrogen 26 mg/dL (9-16); Calcium 8.6 mg/dL (8.4-10.2); Carbon Dioxide 21 mmol/L (22-29); Chloride 103 mmol/L (96-108); Creatinine Clr Calc Pharmacy 30.2; Estimated Glomerular Filt Rate 29; Glucose Random 79 mg/dL (60-115); Potassium 4.9 mmol/L (3.3-5.1); Sodium 139 mmol/L (135-145)
[2020-08-31 12:37] LABS: Carbohydrate Antigen 19-9 25 U/mL (<34)
--- NOTE | 2020-08-31 13:16 | MHC.CM.PN ---
Per ROUNDS discussion, Patient is not yet medically cleared for dc (2 IV ABT, IV Dilaudid, OR today). Home with [facility] services is the goal and CM will follow for possible need to adjust the dc plan.
[2020-08-31 13:26] LABS: Alpha Fetoprotein 2.8 ng/mL
--- NOTE | 2020-08-31 13:53 | PC.NURSE ---
PT IV leaking when flushed. IV discontinued. New IV obtained to right thumb. pt tolerated well/
--- NOTE | 2020-08-31 15:32 | HO.ANESPROP2 ---
HPI - Anesthesia Eval Consult details Narrative: 69 yo female patient here for cystoscopy, retro, stent Right ureter PMFSH Active Problems Active Problems: All Active Problems (Updated 08/31/20 @ 09:28 by Dao León MD) Hydronephrosis (Acute) Generalized continuous abdominal pain (Acute) Ascites (Acute) NONI (acute kidney injury) (Acute) Leukocytosis (Acute) UTI (urinary tract infection) (Acute) Elevated brain natriuretic peptide (BNP) level (Acute) Swelling of both lower extremities (Acute) Adnexal mass (Acute) Abnormal weight loss (Acute) Past Medical History Medical History (Updated 08/31/20 @ 17:07 by Giulia Wynn) COPD (chronic obstructive pulmonary disease) Functional capacity: independent ambulation Family History Family history of problems with anesthesia: No Surgical History Surgical History (Updated 08/31/20 @ 15:36 by Giulia Wynn) History of cholecystectomy S/P lumpectomy, right breast History of Problems with Anesthesia: No Social History Social History (Updated 08/31/20 @ 16:58 by Giulia Wynn) Household Members: Significant Other Housing: Apartment Do you presently have visiting nurse or other home services: No Alcohol intake: never Patient Tobacco Use Status: Current everyday Tobacco user Tobacco use type: Cigarette Smoked in Last 30 Days: Yes Second Hand Smoke Exposure: No Substance Use Type: Opiates and Painkillers Advance Directives Date on File: 08/30/20 service: No Current occupational status: retired Meds Allergies Allergy/AdvReac Type Severity Reaction Status Date / Time lisinopril [LISINOPRIL] Allergy Severe ANAPHYLAXIS, Verified 08/31/20 10:37 THROAT SWELLS fluoxetine [Prozac] Allergy Unknown Anaphylaxis Verified 08/31/20 10:37 From PROZAC Allergy Severe INVOLUNTARY Uncoded 12/05/19 15:31 SPASMS Active Medications: Current Medications Generic Name Dose Route Start Last Admin Trade Name Freq PRN Reason Stop Dose Admin Acetaminophen 650 mg 08/29/20 20:17 Acetaminophen 325 Mg Tablet PO Q6H PRN Pain, Mild (Pain Scale 1-3) Calcium Carbonate 750 mg 08/30/20 17:18 08/30/20 22:26 Calcium Carbonate 750 Mg Tab.Chew PO 750 mg Q4H PRN Administration Dyspepsia Hydromorphone HCl 1 mg 08/31/20 13:35 Hydromorphone Hcl 1 Mg/Ml Syringe IVPUSH Q4H PRN Breakthrough Pain Sodium Chloride 1,000 mls @ 100 mls/hr 08/29/20 20:30 08/31/20 12:02 Ns IVCONT 100 mls/hr .Q10H DOMINICK Administration Ceftriaxone Sodium 1 gm/ 50 mls @ 100 mls/hr 08/30/20 18:00 08/30/20 19:54 Sodium Chloride IV Infused Q24H DOMINICK Infusion Methadone HCl 100 mg 08/30/20 13:45 08/31/20 09:07 Methadone Hcl 1 Mg/0.1 Ml Oral.Conc PO 100 mg DAILY DOMINICK Administration Pharmacy Consult 1 each 08/29/20 17:54 Consult Rx Perform Med Rec MISCELLANE ONCE PRN Consult order Polyethylene Glycol 17 gm 08/30/20 21:00 08/31/20 08:05 Polyethylene Glycol 3350 17 Gm Powd.Pack PO 17 gm BID DOMINICK Administration Sodium Chloride 3 ml 08/30/20 00:00 08/31/20 08:02 0.9 % Sodium Chloride Flush 3 Ml Syringe IVFLUSH 3 ml QSHIFT DOMINICK Administration Home Medications Medication Instructions Recorded Confirmed Last Taken Type methadone 105 mg PO QAM 08/30/20 08/30/20 08/29/20 History 08 Exam Exam Date and Time: August 31, 2020 1532 Height,Weight and Vital Signs: Height 5 ft 3 in Weight 74.1 kg Last Vital Signs Temp 97.7 F 08/31/20 15:00 Pulse 93 08/31/20 15:29 Resp 16 08/31/20 15:29 BP 167/90 H 08/31/20 15:29 Pulse Ox 93 08/31/20 15:29 Pertinent Lab Results Pertinent Lab Results: Laboratory Tests 08/29/20 08/29/20 08/29/20 11:56 11:56 11:56 WBC 13.0 H RBC 3.73 L Hgb 10.9 L Hct 35.1 L MCV 94.1 MCH 29.2 MCHC 31.1 RDW 17.1 H Plt Count TNP MPV Not Reportable Immature Gran % (Auto) 0.6 H Neut % (Auto) 91.1 H Lymph % (Auto) 3.9 L Warren % (Auto) 3.5 Eos % (Auto) 0.4 Baso % (Auto) 0.5 Lymph # (Auto) 0.5 L Warren # (Auto) 0.5 Eos # (Auto) 0.1 Baso # (Auto) 0.1 Abs Immat Gran (auto) 0.08 H Absolute Neuts (auto) 11.8 H Absolute Nucleated RBC 0.000 Nucleated RBC % (auto) 0.0 Smear Tech's Comments VERIFIED ESR PT INR Sodium 138 Potassium 5.2 H Chloride 97 Carbon Dioxide 26 Anion Gap 20 BUN 32 H Creatinine 2.07 H Estim Creat Clear Calc 25.4 Estimated GFR 24 Random Glucose 86 Lactic Acid Calcium 9.7 Magnesium 2.2 Total Bilirubin 0.2 Direct Bilirubin < 0.2 AST 23 ALT < 6 Alkaline Phosphatase 732 H Lactate Dehydrogenase Total Creatine Kinase 21 L Troponin I High Sens C-Reactive Protein 16.23 H B-Natriuretic Peptide 218 H Total Protein 7.3 Albumin 3.7 Alpha Fetoprotein Carcinoembryonic Ag 1.80 CA 19-9 Antigen Urine Color Urine Appearance Urine pH Ur Specific [place] Urine Protein Urine Glucose (UA) Urine Ketones Urine Blood Urine Nitrite Ur Leukocyte Esterase Urine RBC Urine WBC Ur Squamous Epith Cells Amorphous Sediment Urine Bacteria COVID-19 ([facility]) COVID-19 Clin Com Hep Bs Antigen Hep Bs Antibody Hep B Core Total Ab Hep B Core IgM Ab Hepatitis C Ab (EIA) 08/29/20 08/29/20 08/29/20 11:56 11:56 14:42 WBC RBC Hgb Hct MCV MCH MCHC RDW Plt Count MPV Immature Gran % (Auto) Neut % (Auto) Lymph % (Auto) Warren % (Auto) Eos % (Auto) Baso % (Auto) Lymph # (Auto) Warren # (Auto) Eos # (Auto) Baso # (Auto) Abs Immat Gran (auto) Absolute Neuts (auto) Absolute Nucleated RBC Nucleated RBC % (auto) Smear Tech's Comments ESR 92 H PT 13.8 H INR 1.2 H Sodium Potassium Chloride Carbon Dioxide Anion Gap BUN Creatinine Estim Creat Clear Calc Estimated GFR Random Glucose Lactic Acid Calcium Magnesium Total Bilirubin Direct Bilirubin AST ALT Alkaline Phosphatase Lactate Dehydrogenase Total Creatine Kinase Troponin I High Sens C-Reactive Protein B-Natriuretic Peptide Total Protein Albumin Alpha Fetoprotein 2.8 Carcinoembryonic Ag CA 19-9 Antigen Urine Color Urine Appearance Urine pH Ur Specific [place] Urine Protein Urine Glucose (UA) Urine Ketones Urine Blood Urine Nitrite Ur Leukocyte Esterase Urine RBC Urine WBC Ur Squamous Epith Cells Amorphous Sediment Urine Bacteria COVID-19 ([place]) COVID-19 Clin Com Hep Bs Antigen Hep Bs Antibody Hep B Core Total Ab Hep B Core IgM Ab Hepatitis C Ab (EIA) 08/29/20 08/29/20 08/29/20 14:42 14:42 16:57 WBC RBC Hgb Hct MCV MCH MCHC RDW Plt Count MPV Immature Gran % (Auto) Neut % (Auto) Lymph % (Auto) Warren % (Auto) Eos % (Auto) Baso % (Auto) Lymph # (Auto) Warren # (Auto) Eos # (Auto) Baso # (Auto) Abs Immat Gran (auto) Absolute Neuts (auto) Absolute Nucleated RBC Nucleated RBC % (auto) Smear Tech's Comments ESR PT INR Sodium Potassium Chloride Carbon Dioxide Anion Gap BUN Creatinine Estim Creat Clear Calc Estimated GFR Random Glucose Lactic Acid 0.9 Calcium Magnesium Total Bilirubin Direct Bilirubin AST ALT Alkaline Phosphatase Lactate Dehydrogenase Total Creatine Kinase Troponin I High Sens 15.9 C-Reactive Protein B-Natriuretic Peptide Total Protein Albumin Alpha Fetoprotein Carcinoembryonic Ag CA 19-9 Antigen Urine Color YELLOW Urine Appearance CLOUDY Urine pH 5.5 Ur Specific [place] >= 1.030 H Urine Protein 2+ H Urine Glucose (UA) NEG Urine Ketones NEG Urine Blood 2+ H Urine Nitrite NEG Ur Leukocyte Esterase 1+ H Urine RBC 15-29 H Urine WBC 30-49 H Ur Squamous Epith Cells 1+ Amorphous Sediment 2+ Urine Bacteria 1+ COVID-19 ([place]) COVID-19 Clin Com Hep Bs Antigen Hep Bs Antibody Hep B Core Total Ab Hep B Core IgM Ab Hepatitis C Ab (EIA) 08/29/20 08/29/20 08/30/20 18:37 18:37 12:46 WBC 13.7 H RBC 3.84 L Hgb 11.3 L Hct 35.8 L MCV 93.2 MCH 29.4 MCHC 31.6 RDW 17.1 H Plt Count 319 MPV 9.1 L Immature Gran % (Auto) 0.5 H Neut % (Auto) 91.2 H Lymph % (Auto) 3.8 L Warren % (Auto) 3.8 Eos % (Auto) 0.4 Baso % (Auto) 0.3 Lymph # (Auto) 0.5 L [place] # (Auto) 0.5 Eos # (Auto) 0.1 Baso # (Auto) 0.0 Abs Immat Gran (auto) 0.07 H Absolute Neuts (auto) 12.5 H Absolute Nucleated RBC 0.000 Nucleated RBC % (auto) 0.0 Smear Tech's Comments VERIFIED ESR PT INR Sodium Potassium Chloride Carbon Dioxide Anion Gap BUN Creatinine Estim Creat Clear Calc Estimated GFR Random Glucose Lactic Acid Calcium Magnesium Total Bilirubin Direct Bilirubin AST ALT Alkaline Phosphatase Lactate Dehydrogenase Total Creatine Kinase Troponin I High Sens 17.2 H* C-Reactive Protein B-Natriuretic Peptide Total Protein Albumin Alpha Fetoprotein Carcinoembryonic Ag CA 19-9 Antigen Urine Color Urine Appearance Urine pH Ur Specific [place] Urine Protein Urine Glucose (UA) Urine Ketones Urine Blood Urine Nitrite Ur Leukocyte Esterase Urine RBC Urine WBC Ur Squamous Epith Cells Amorphous Sediment Urine Bacteria COVID-19 ([place]) Negative COVID-19 Clin Com See Note Hep Bs Antigen Hep Bs Antibody Hep B Core Total Ab Hep B Core IgM Ab Hepatitis C Ab (EIA) 08/30/20 08/30/20 08/30/20 12:46 12:46 12:46 WBC RBC Hgb Hct MCV MCH MCHC RDW Plt Count MPV Immature Gran % (Auto) Neut % (Auto) Lymph % (Auto) Warren % (Auto) Eos % (Auto) Baso % (Auto) Lymph # (Auto) [place] # (Auto) Eos # (Auto) Baso # (Auto) Abs Immat Gran (auto) Absolute Neuts (auto) Absolute Nucleated RBC Nucleated RBC % (auto) Smear Tech's Comments ESR PT INR Sodium 139 Potassium 4.6 Chloride 99 Carbon Dioxide 28 Anion Gap 17 BUN 29 H Creatinine 1.90 H Estim Creat Clear Calc 27.6 Estimated GFR 26 Random Glucose 85 Lactic Acid Calcium 9.1 D Magnesium 2.1 Total Bilirubin Direct Bilirubin AST ALT Alkaline Phosphatase Lactate Dehydrogenase 1854 H Total Creatine Kinase Troponin I High Sens C-Reactive Protein B-Natriuretic Peptide Total Protein Albumin Alpha Fetoprotein Carcinoembryonic Ag CA 19-9 Antigen 25 Urine Color Urine Appearance Urine pH Ur Specific [place] Urine Protein Urine Glucose (UA) Urine Ketones Urine Blood Urine Nitrite Ur Leukocyte Esterase Urine RBC Urine WBC Ur Squamous Epith Cells Amorphous Sediment Urine Bacteria COVID-19 ([place]) COVID-19 Clin Com Hep Bs Antigen Negative Hep Bs Antibody REACTIVE Hep B Core Total Ab Reactive Hep B Core IgM Ab Cancelled Hepatitis C Ab (EIA) Reactive H 08/31/20 09:47 WBC RBC Hgb Hct MCV MCH MCHC RDW Plt Count MPV Immature Gran % (Auto) Neut % (Auto) Lymph % (Auto) [place] % (Auto) Eos % (Auto) Baso % (Auto) Lymph # (Auto) [place] # (Auto) Eos # (Auto) Baso # (Auto) Abs Immat Gran (auto) Absolute Neuts (auto) Absolute Nucleated RBC Nucleated RBC % (auto) Smear Tech's Comments ESR PT INR Sodium 139 Potassium 4.9 Chloride 103 Carbon Dioxide 21 L Anion Gap 20 BUN 26 H Creatinine 1.74 H Estim Creat Clear Calc 30.2 Estimated GFR 29 Random Glucose 79 Lactic Acid Calcium 8.6 Magnesium Total Bilirubin Direct Bilirubin AST ALT Alkaline Phosphatase Lactate Dehydrogenase Total Creatine Kinase Troponin I High Sens C-Reactive Protein B-Natriuretic Peptide Total Protein Albumin Alpha Fetoprotein Carcinoembryonic Ag CA 19-9 Antigen Urine Color Urine Appearance Urine pH Ur Specific [place] Urine Protein Urine Glucose (UA) Urine Ketones Urine Blood Urine Nitrite Ur Leukocyte Esterase Urine RBC Urine WBC Ur Squamous Epith Cells Amorphous Sediment Urine Bacteria COVID-19 ([place]) COVID-19 Clin Com Hep Bs Antigen Hep Bs Antibody Hep B Core Total Ab Hep B Core IgM Ab Hepatitis C Ab (EIA) Airway Mallampati Class: II TM Dist: >3cm Neck ROM: Full Heart: RRR ?heave Lungs: CTAB Assessment and Plan Assessment Anesthesia Assessment: Anesthesia Plan Discussed and Chart Reviewed Final Anesthetic Review NPO: Yes ASA Class: III Final Preanesthetic Review: No Changes in Pt Med Stat, Meds/Allgs Chart Reviewed, Consent Obtained/Reviewed and Anes Risks/Benef Reviewed Patient Risk: Intermediate Procedure Risk: Low Assessment/Block/Sedation in SS: Assess/Block/Sedation-SS Anesthetic Plan Anesthetic Plan: GA Disposition: Inp. Admit - Standard Bed
[2020-08-31 15:36] LABS: MN% 77.9 %; PMN% 22.1 %; RBC Pleural Fluid 0.003 X10*3/uL; WBC Pleural Fluid 0.355 X10*3/uL
[2020-08-31 15:37] LABS: BF Shift QC OK YES; Man Diluent Bkgrd OK YES
[2020-08-31] MEDS: Lidocaine HCl 1 % 20 ML VIAL 10 ML SUBCUT (15:49)
[2020-08-31 15:56] LABS: Basophils Pleural Fluid 1 %; Lymphocytes Pleural Fluid 28 %; Monocytes Pleural Fluid 51 %; Neutrophils Pleural Fluid 14 %; Other Cells Plerual Fl 6 %
[2020-08-31] MEDS: levoFLOXacin/D5W 500 MG/100 ML PIGGYBACK 100 MG IV (17:10)
--- NOTE | 2020-08-31 17:31 | P.PNIM_ITS ---
Subjective Subjective Date of Service: 08/31/20 Interval History: Seen in f/u for pelvic mass, ascietes, renal failure, still has some abd pain Physical Exam Vital Signs: Vital Signs: Last Vital Signs Temp 98.5 F 08/31/20 16:00 Pulse 86 08/31/20 16:00 Resp 16 08/31/20 16:00 BP 174/83 H 08/31/20 16:00 Pulse Ox 94 08/31/20 16:00 Body Mass Index 28.9 Const: Other: Constitutional Awake and Alert, No apparent distress Neck Supple, No lymphadenopathy Cardiovascular RRR, No M/R/G, S1 S2, No S3 S4, 2+ pedal edema Respiratory Lungs clear, No respiratory distress Gastrointestinal mild tenderness, distended, signs of ascites, leakage from umbilicus Skin No rash-stasis dermatitis of both lower legs Neurological Alert & oriented x3 Psychological Appropriate affect Objective Data Current Medications Generic Name Dose Route Start Last Admin Trade Name Freq PRN Reason Stop Dose Admin Acetaminophen 650 mg 08/29/20 20:17 Acetaminophen 325 Mg Tablet PO Q6H PRN Pain, Mild (Pain Scale 1-3) Calcium Carbonate 750 mg 08/30/20 17:18 08/30/20 22:26 Calcium Carbonate 750 Mg Tab.Chew PO 750 mg Q4H PRN Administration Dyspepsia Hydromorphone HCl 1 mg 08/31/20 13:35 Hydromorphone Hcl 1 Mg/Ml Syringe IVPUSH Q4H PRN Breakthrough Pain Sodium Chloride 1,000 mls @ 100 mls/hr 08/29/20 20:30 08/31/20 12:02 Ns IVCONT 100 mls/hr .Q10H DOMINICK Administration Ceftriaxone Sodium 1 gm/ 50 mls @ 100 mls/hr 08/30/20 18:00 08/30/20 19:54 Sodium Chloride IV Infused Q24H DOMINICK Infusion Lactated Ringer's 1,000 mls @ 100 mls/hr 08/31/20 17:15 Lr IVCONT .Q10H DOMINICK Methadone HCl 100 mg 08/30/20 13:45 08/31/20 09:07 Methadone Hcl 1 Mg/0.1 Ml Oral.Conc PO 100 mg DAILY DOMINICK Administration Pharmacy Consult 1 each 08/29/20 17:54 Consult Rx Perform Med Rec MISCELLANE ONCE PRN Consult order Polyethylene Glycol 17 gm 08/30/20 21:00 08/31/20 08:05 Polyethylene Glycol 3350 17 Gm Powd.Pack PO 17 gm BID DOMINICK Administration Sodium Chloride 3 ml 08/30/20 00:00 08/31/20 08:02 0.9 % Sodium Chloride Flush 3 Ml Syringe IVFLUSH 3 ml QSHIFT DOMINICK Administration Labs CBC & Chem 7: 08/30/20 12:46 08/31/20 09:47 Labs: Laboratory Results - last 24 hr 08/29/20 08/30/20 08/30/20 11:56 12:46 12:46 Sodium Potassium Chloride Carbon Dioxide Anion Gap BUN Creatinine Estim Creat Clear Calc Estimated GFR Random Glucose Calcium Alpha Fetoprotein 2.8 CA 19-9 Antigen 25 Pleural WBC Pleural RBC Pleural Neutrophils Pleural Lymphocytes Pleural Monocytes Pleural Basophils Pleural Other Cells Hep Bs Antigen Negative Hep Bs Antibody REACTIVE Hep B Core Total Ab Reactive Hep B Core IgM Ab Cancelled Hepatitis C Ab (EIA) Reactive H 08/31/20 08/31/20 09:47 14:00 Sodium 139 Potassium 4.9 Chloride 103 Carbon Dioxide 21 L Anion Gap 20 BUN 26 H Creatinine 1.74 H Estim Creat Clear Calc 30.2 Estimated GFR 29 Random Glucose 79 Calcium 8.6 Alpha Fetoprotein CA 19-9 Antigen Pleural WBC 0.355 Pleural RBC 0.003 Pleural Neutrophils 14 Pleural Lymphocytes 28 Pleural Monocytes 51 Pleural Basophils 1 Pleural Other Cells 6 Hep Bs Antigen Hep Bs Antibody Hep B Core Total Ab Hep B Core IgM Ab Hepatitis C Ab (EIA) Imaging Chest x-ray: Radiologist's impression: Impressions Abdomen/Pelvis CT 08/29/20 13:03 IMPRESSION: No acute pneumonic consolidation. There are small pulmonary nodules measuring 2 to 4 mm. No abnormal mediastinal or axillary adenopathy. Mildly heterogenous spleen likely related to slow contrast uptake. Mild right hydronephrosis with no obstructive etiology seen. There is a right renal cyst. Moderate constipation without obstruction. Diffuse ascites and mild anasarca. Loculated fluid collection versus ovarian cyst right adnexa. Moderate free fluid is seen in the pelvis. Liver cirrhosis suspected. Small right inguinal hernia containing fluid and small hiatal hernia. Chest CT 08/29/20 13:03 IMPRESSION: No acute pneumonic consolidation. There are small pulmonary nodules measuring 2 to 4 mm. No abnormal mediastinal or axillary adenopathy. Mildly heterogenous spleen likely related to slow contrast uptake. Mild right hydronephrosis with no obstructive etiology seen. There is a right renal cyst. Moderate constipation without obstruction. Diffuse ascites and mild anasarca. Loculated fluid collection versus ovarian cyst right adnexa. Moderate free fluid is seen in the pelvis. Liver cirrhosis suspected. Small right inguinal hernia containing fluid and small hiatal hernia. Microbiology Microbiology Results: Microbiology 08/29/20 14:42 Blood Culture - Preliminary Blood - Venous No growth after 48 hours. 08/29/20 14:42 Blood Culture - Preliminary Blood - Venous No growth after 48 hours. Assessment and Plan (1) NONI (acute kidney injury): Status: Acute Assessment and Plan: 69-year-old female with a past medical history of opiate dependence on methadone, tobacco dependence, COPD presented to the hospital with a chief complaint of abdominal pain/weight loss/nausea/vomiting/poor oral intake. Abdominal mass/Pelvis mass, ascites (7.8 x 4.8 x 5.0 cm complex cystic structure in the right pelvis. Its unclear if this is adnexal in etiology or could reflect loculated ascites, s uspect this to be likely ovarian origin. Seen by AUTO OVERHAULER (Dr. Pagan) with the following remark : Clinical scenario suspicious for ovarian cancer with possible metastatis, with the findings on ultrasound and CT scan showing a complex ovarian cyst, ascites, multiple pulmonary nodules and and umbilical mass identified on physical exam (although not seen on a CT scan). Add to Alpha fetoprotein and CEA , LDH, CA 19- 9, CA 125 as tumor markers for ovarian cancer, (likely possibility of false elevation secondary to renal failure), Consider biopsy of the umbilical mass especially if identified on MRI, ascites aspiration to identify any possible cancer cells, and pulmonary nodule biopsy if possible. If NONI is reversed and the patient is able to be discharged home , refer to [facility] [facility] Oncology service at [facility] for management if not, consider in patient transfer to [facility] Oncology Service at [facility]. Oncology eval pending as well Pain control with Dilaudid CEA level pending Liver cirrhosis/new onset ascites: paracentesis today UTI: Continue ceftriaxone. Follow up cultures. NONI:likely pre renal vs obstructive urolopathy, it is better, having cysto with stent in light of hydronephrosis Tobacco dependence: Counseled on smoking cessation COPD: Stable. Celeste p.r.n. Opiate dependence: Patient on methadone 105 mg daily. Prophylaxis: SCD boots Code status: Full code
--- NOTE | 2020-08-31 19:14 | HO.ANESPROP2 ---
[facility] Active Problems Active Problems: All Active Problems (Updated 08/31/20 @ 17:07 by Giulia Wynn) S/P lumpectomy, right breast (Acute) Hydronephrosis (Acute) Generalized continuous abdominal pain (Acute) Ascites (Acute) NONI (acute kidney injury) (Acute) Leukocytosis (Acute) UTI (urinary tract infection) (Acute) Elevated brain natriuretic peptide (BNP) level (Acute) Swelling of both lower extremities (Acute) Adnexal mass (Acute) Abnormal weight loss (Acute) Past Medical History Medical History COPD (chronic obstructive pulmonary disease) Functional capacity: independent ambulation Family History Family history of problems with anesthesia: No Surgical History Surgical History History of cholecystectomy S/P lumpectomy, right breast History of Problems with Anesthesia: No Social History Social History (Updated 08/31/20 @ 16:58 by Giulia Wynn) Household Members: Significant Other Housing: Apartment Do you presently have visiting nurse or other home services: No Alcohol intake: never Patient Tobacco Use Status: Current everyday Tobacco user Tobacco use type: Cigarette Smoked in Last 30 Days: Yes Second Hand Smoke Exposure: No Substance Use Type: Opiates and Painkillers Advance Directives Date on File: 08/30/20 service: No Current occupational status: retired Meds Allergies Allergy/AdvReac Type Severity Reaction Status Date / Time lisinopril [LISINOPRIL] Allergy Severe ANAPHYLAXIS, Verified 08/31/20 10:37 THROAT SWELLS fluoxetine [Prozac] Allergy Unknown Anaphylaxis Verified 08/31/20 10:37 From PROZAC Allergy Severe INVOLUNTARY Uncoded 12/05/19 15:31 SPASMS Active Medications: Current Medications Generic Name Dose Route Start Last Admin Trade Name Freq PRN Reason Stop Dose Admin Acetaminophen 650 mg 08/29/20 20:17 Acetaminophen 325 Mg Tablet PO Q6H PRN Pain, Mild (Pain Scale 1-3) Calcium Carbonate 750 mg 08/30/20 17:18 08/30/20 22:26 Calcium Carbonate 750 Mg Tab.Chew PO 750 mg Q4H PRN Administration Dyspepsia Heparin Sodium (Porcine) 5,000 unit 08/31/20 18:00 Heparin Sodium,Porcine 5,000 Unit/Ml Vial SUBCUT Q8H DOMINICK Hydromorphone HCl 1 mg 08/31/20 13:35 Hydromorphone Hcl 1 Mg/Ml Syringe IVPUSH Q4H PRN Breakthrough Pain Sodium Chloride 1,000 mls @ 100 mls/hr 08/29/20 20:30 08/31/20 12:02 Ns IVCONT 100 mls/hr .Q10H DOMINICK Administration Ceftriaxone Sodium 1 gm/ 50 mls @ 100 mls/hr 08/30/20 18:00 08/30/20 19:54 Sodium Chloride IV Infused Q24H DOMINICK Infusion Lactated Ringer's 1,000 mls @ 100 mls/hr 08/31/20 17:15 Lr IVCONT .Q10H DOMINICK Methadone HCl 100 mg 08/30/20 13:45 08/31/20 09:07 Methadone Hcl 1 Mg/0.1 Ml Oral.Conc PO 100 mg DAILY DOMINICK Administration Pharmacy Consult 1 each 08/29/20 17:54 Consult Rx Perform Med Rec MISCELLANE ONCE PRN Consult order Polyethylene Glycol 17 gm 08/30/20 21:00 08/31/20 08:05 Polyethylene Glycol 3350 17 Gm Powd.Pack PO 17 gm BID DOMINICK Administration Sodium Chloride 3 ml 08/30/20 00:00 08/31/20 08:02 0.9 % Sodium Chloride Flush 3 Ml Syringe IVFLUSH 3 ml QSHIFT DOMINICK Administration Home Medications Medication Instructions Recorded Confirmed Last Taken Type methadone 105 mg PO QAM 08/30/20 08/30/20 08/29/20 History 0800 Exam Exam Date and Time: August 31, 20201913 Height,Weight and Vital Signs: Height 5 ft 3 in Weight 74.1 kg Last Vital Signs Temp 98.5 F 08/31/20 16:00 Pulse 86 08/31/20 16:00 Resp 16 08/31/20 16:00 BP 174/83 H 08/31/20 16:00 Pulse Ox 94 08/31/20 16:00 Pertinent Lab Results Pertinent Lab Results: Laboratory Tests 08/29/20 08/29/20 08/29/20 11:56 11:56 11:56 WBC 13.0 H RBC 3.73 L Hgb 10.9 L Hct 35.1 L MCV 94.1 MCH 29.2 MCHC 31.1 RDW 17.1 H Plt Count TNP MPV Not Reportable Immature Gran % (Auto) 0.6 H Neut % (Auto) 91.1 H Lymph % (Auto) 3.9 L [place] % (Auto) 3.5 Eos % (Auto) 0.4 Baso % (Auto) 0.5 Lymph # (Auto) 0.5 L [place] # (Auto) 0.5 Eos # (Auto) 0.1 Baso # (Auto) 0.1 Abs Immat Gran (auto) 0.08 H Absolute Neuts (auto) 11.8 H Absolute Nucleated RBC 0.000 Nucleated RBC % (auto) 0.0 Smear Tech's Comments VERIFIED ESR PT INR Sodium 138 Potassium 5.2 H Chloride 97 Carbon Dioxide 26 Anion Gap 20 BUN 32 H Creatinine 2.07 H Estim Creat Clear Calc 25.4 Estimated GFR 24 Random Glucose 86 Lactic Acid Calcium 9.7 Magnesium 2.2 Total Bilirubin 0.2 Direct Bilirubin < 0.2 AST 23 ALT < 6 Alkaline Phosphatase 732 H Lactate Dehydrogenase Total Creatine Kinase 21 L Troponin I High Sens C-Reactive Protein 16.23 H B-Natriuretic Peptide 218 H Total Protein 7.3 Albumin 3.7 Alpha Fetoprotein Carcinoembryonic Ag 1.80 CA 19-9 Antigen Urine Color Urine Appearance Urine pH Ur Specific [place] Urine Protein Urine Glucose (UA) Urine Ketones Urine Blood Urine Nitrite Ur Leukocyte Esterase Urine RBC Urine WBC Ur Squamous Epith Cells Amorphous Sediment Urine Bacteria Pleural WBC Pleural RBC Pleural Neutrophils Pleural Lymphocytes Pleural Monocytes Pleural Basophils Pleural Other Cells COVID-19 ([place]) COVID-19 Clin Com Hep Bs Antigen Hep Bs Antibody Hep B Core Total Ab Hep B Core IgM Ab Hepatitis C Ab (EIA) 08/29/20 08/29/20 08/29/20 11:56 11:56 14:42 WBC RBC Hgb Hct MCV MCH MCHC RDW Plt Count MPV Immature Gran % (Auto) Neut % (Auto) Lymph % (Auto) [place] % (Auto) Eos % (Auto) Baso % (Auto) Lymph # (Auto) [place] # (Auto) Eos # (Auto) Baso # (Auto) Abs Immat Gran (auto) Absolute Neuts (auto) Absolute Nucleated RBC Nucleated RBC % (auto) Smear Tech's Comments ESR 92 H PT 13.8 H INR 1.2 H Sodium Potassium Chloride Carbon Dioxide Anion Gap BUN Creatinine Estim Creat Clear Calc Estimated GFR Random Glucose Lactic Acid Calcium Magnesium Total Bilirubin Direct Bilirubin AST ALT Alkaline Phosphatase Lactate Dehydrogenase Total Creatine Kinase Troponin I High Sens C-Reactive Protein B-Natriuretic Peptide Total Protein Albumin Alpha Fetoprotein 2.8 Carcinoembryonic Ag CA 19-9 Antigen Urine Color Urine Appearance Urine pH Ur Specific [place] Urine Protein Urine Glucose (UA) Urine Ketones Urine Blood Urine Nitrite Ur Leukocyte Esterase Urine RBC Urine WBC Ur Squamous Epith Cells Amorphous Sediment Urine Bacteria Pleural WBC Pleural RBC Pleural Neutrophils Pleural Lymphocytes Pleural Monocytes Pleural Basophils Pleural Other Cells COVID-19 ([place]ORIA) COVID-19 Clin Com Hep Bs Antigen Hep Bs Antibody Hep B Core Total Ab Hep B Core IgM Ab Hepatitis C Ab (EIA) 08/29/20 08/29/20 08/29/20 14:42 14:42 16:57 WBC RBC Hgb Hct MCV MCH MCHC RDW Plt Count MPV Immature Gran % (Auto) Neut % (Auto) Lymph % (Auto) [place] % (Auto) Eos % (Auto) Baso % (Auto) Lymph # (Auto) [place] # (Auto) Eos # (Auto) Baso # (Auto) Abs Immat Gran (auto) Absolute Neuts (auto) Absolute Nucleated RBC Nucleated RBC % (auto) Smear Tech's Comments ESR PT INR Sodium Potassium Chloride Carbon Dioxide Anion Gap BUN Creatinine Estim Creat Clear Calc Estimated GFR Random Glucose Lactic Acid 0.9 Calcium Magnesium Total Bilirubin Direct Bilirubin AST ALT Alkaline Phosphatase Lactate Dehydrogenase Total Creatine Kinase Troponin I High Sens 15.9 C-Reactive Protein B-Natriuretic Peptide Total Protein Albumin Alpha Fetoprotein Carcinoembryonic Ag CA 19-9 Antigen Urine Color YELLOW Urine Appearance CLOUDY Urine pH 5.5 Ur Specific [place] >= 1.030 H Urine Protein 2+ H Urine Glucose (UA) NEG Urine Ketones NEG Urine Blood 2+ H Urine Nitrite NEG Ur Leukocyte Esterase 1+ H Urine RBC 15-29 H Urine WBC 30-49 H Ur Squamous Epith Cells 1+ Amorphous Sediment 2+ Urine Bacteria 1+ Pleural WBC Pleural RBC Pleural Neutrophils Pleural Lymphocytes Pleural Monocytes Pleural Basophils Pleural Other Cells COVID-19 ([place]ORIA) COVID-19 Clin Com Hep Bs Antigen Hep Bs Antibody Hep B Core Total Ab Hep B Core IgM Ab Hepatitis C Ab (EIA) 08/29/20 08/29/20 08/30/20 18:37 18:37 12:46 WBC 13.7 H RBC 3.84 L Hgb 11.3 L Hct 35.8 L MCV 93.2 MCH 29.4 MCHC 31.6 RDW 17.1 H Plt Count 319 MPV 9.1 L Immature Gran % (Auto) 0.5 H Neut % (Auto) 91.2 H Lymph % (Auto) 3.8 L [place] % (Auto) 3.8 Eos % (Auto) 0.4 Baso % (Auto) 0.3 Lymph # (Auto) 0.5 L [place] # (Auto) 0.5 Eos # (Auto) 0.1 Baso # (Auto) 0.0 Abs Immat Gran (auto) 0.07 H Absolute Neuts (auto) 12.5 H Absolute Nucleated RBC 0.000 Nucleated RBC % (auto) 0.0 Smear Tech's Comments VERIFIED ESR PT INR Sodium Potassium Chloride Carbon Dioxide Anion Gap BUN Creatinine Estim Creat Clear Calc Estimated GFR Random Glucose Lactic Acid Calcium Magnesium Total Bilirubin Direct Bilirubin AST ALT Alkaline Phosphatase Lactate Dehydrogenase Total Creatine Kinase Troponin I High Sens 17.2 H* C-Reactive Protein B-Natriuretic Peptide Total Protein Albumin Alpha Fetoprotein Carcinoembryonic Ag CA 19-9 Antigen Urine Color Urine Appearance Urine pH Ur Specific [place] Urine Protein Urine Glucose (UA) Urine Ketones Urine Blood Urine Nitrite Ur Leukocyte Esterase Urine RBC Urine WBC Ur Squamous Epith Cells Amorphous Sediment Urine Bacteria Pleural WBC Pleural RBC Pleural Neutrophils Pleural Lymphocytes Pleural Monocytes Pleural Basophils Pleural Other Cells COVID-19 ([place]ORIA) Negative COVID-19 Clin Com See Note Hep Bs Antigen Hep Bs Antibody Hep B Core Total Ab Hep B Core IgM Ab Hepatitis C Ab (EIA) 08/30/20 08/30/20 08/30/20 12:46 12:46 12:46 WBC RBC Hgb Hct MCV MCH MCHC RDW Plt Count MPV Immature Gran % (Auto) Neut % (Auto) Lymph % (Auto) [place] % (Auto) Eos % (Auto) Baso % (Auto) Lymph # (Auto) [place] # (Auto) Eos # (Auto) Baso # (Auto) Abs Immat Gran (auto) Absolute Neuts (auto) Absolute Nucleated RBC Nucleated RBC % (auto) Smear Tech's Comments ESR PT INR Sodium 139 Potassium 4.6 Chloride 99 Carbon Dioxide 28 Anion Gap 17 BUN 29 H Creatinine 1.90 H Estim Creat Clear Calc 27.6 Estimated GFR 26 Random Glucose 85 Lactic Acid Calcium 9.1 D Magnesium 2.1 Total Bilirubin Direct Bilirubin AST ALT Alkaline Phosphatase Lactate Dehydrogenase 1854 H Total Creatine Kinase Troponin I High Sens C-Reactive Protein B-Natriuretic Peptide Total Protein Albumin Alpha Fetoprotein Carcinoembryonic Ag CA 19-9 Antigen 25 Urine Color Urine Appearance Urine pH Ur Specific [place] Urine Protein Urine Glucose (UA) Urine Ketones Urine Blood Urine Nitrite Ur Leukocyte Esterase Urine RBC Urine WBC Ur Squamous Epith Cells Amorphous Sediment Urine Bacteria Pleural WBC Pleural RBC Pleural Neutrophils Pleural Lymphocytes Pleural Monocytes Pleural Basophils Pleural Other Cells COVID-19 (GLORIA) COVID-19 Clin Com Hep Bs Antigen Negative Hep Bs Antibody REACTIVE Hep B Core Total Ab Reactive Hep B Core IgM Ab Cancelled Hepatitis C Ab (EIA) Reactive H 08/31/20 08/31/20 09:47 14:00 WBC RBC Hgb Hct MCV MCH MCHC RDW Plt Count MPV Immature Gran % (Auto) Neut % (Auto) Lymph % (Auto) [place] % (Auto) Eos % (Auto) Baso % (Auto) Lymph # (Auto) [place] # (Auto) Eos # (Auto) Baso # (Auto) Abs Immat Gran (auto) Absolute Neuts (auto) Absolute Nucleated RBC Nucleated RBC % (auto) Smear Tech's Comments ESR PT INR Sodium 139 Potassium 4.9 Chloride 103 Carbon Dioxide 21 L Anion Gap 20 BUN 26 H Creatinine 1.74 H Estim Creat Clear Calc 30.2 Estimated GFR 29 Random Glucose 79 Lactic Acid Calcium 8.6 Magnesium Total Bilirubin Direct Bilirubin AST ALT Alkaline Phosphatase Lactate Dehydrogenase Total Creatine Kinase Troponin I High Sens C-Reactive Protein B-Natriuretic Peptide Total Protein Albumin Alpha Fetoprotein Carcinoembryonic Ag CA 19-9 Antigen Urine Color Urine Appearance Urine pH Ur Specific [place] Urine Protein Urine Glucose (UA) Urine Ketones Urine Blood Urine Nitrite Ur Leukocyte Esterase Urine RBC Urine WBC Ur Squamous Epith Cells Amorphous Sediment Urine Bacteria Pleural WBC 0.355 Pleural RBC 0.003 Pleural Neutrophils 14 Pleural Lymphocytes 28 Pleural Monocytes 51 Pleural Basophils 1 Pleural Other Cells 6 COVID-19 ([place]ORIA) COVID-19 Clin Com Hep Bs Antigen Hep Bs Antibody Hep B Core Total Ab Hep B Core IgM Ab Hepatitis C Ab (EIA) Airway Mallampati Class: II TM Dist: >3cm Neck ROM: Full Denture: Upper and Lower Heart: RRR Lungs: CTA
--- NOTE | 2020-08-31 19:49 | P.OP_ITS ---
Operative Note Operative Note Date of Service: 08/31/20 Narrative: PreOperative Diagnosis: Hydronephrosis right side Post Operative Diagnosis: Right-sided hydronephrosis, stage III cervical cancer Procedure: Cystoscopy, right retrograde, right stent placement, bladder biopsy, examination under anesthesia Surgeon: Dr aDo León Anesthesia: Sedation Indications for procedure: Right hydronephrosis on CT scan, creatinine 1.9 Procedure: After informed consent was verified the patient was brought to the operating room and placed in a supine position. Anesthesia was administered per protocol. Patient was placed in a modified dorsal lithotomy position and prepped and draped in sterile fashion. Safety pause time-out was performed. Antibiotics being given. Twenty-two Taiwanese cystoscope inserted per urethra. Of note in the floor the bladder there appeared to be some type of invasive change. Mucosa showed neovascularity. The right ureteric orifice was cannulated retrograde examination was performed. There was hydroureteronephrosis down to the pelvic brim. A sensor guidewire was placed up and tortuous component of the proximal ureter was straight and throat combination of the guidewire and a ureteric catheter. Once the dilated tortuous ureter had been straightened a 6 [place] by 22 cm stent was placed without difficulty. Hydronephrotic drip been obtained from the ureteric catheter. Changes on the bladder floor were biopsied times to. At this point a examination under anesthesia was performed. The examination in the anesthesia confirmed a grade to descent of her cervix which was rock hard to examination. The patient was extubated and brought to the recovery area in a stable condition. Pathology: Bladder times 2. Drains: Six [place] by 22 cm double-J ureteric catheter
--- NOTE | 2020-08-31 19:54 | PM.OP ---
Brief Operative Note Date of Service: 08/31/20 Pre-op diagnosis: Right hydronephrosis Post-op diagnosis: same (Cervical cancer) Procedure: Right retrograde, bladder biopsy, right stent placement Implants: 6 [place] by 22 double-J stent Surgeon: Dao León MD Anesthesia: MAC Was an Professional Employer Consultant used for this Procedure?: No Estimated blood loss (mL): 0 Pathology: other (Bladder biopsy) Condition: stable Disposition: floor
[2020-08-31] MEDS: ondansetron HCL 4 MG/2 ML VIAL IVPUSH (20:16)
[2020-08-31] MEDS: Ketorolac Tromethamine 15 MG/ML VIAL IVPUSH (20:22)
[2020-08-31] MEDS: HYDROmorphone HCl 1 MG/ML SYRINGE IVPUSH (22:17)
[2020-08-31] MEDS: cefTRIAXone sodium 1 GM in 0.9 % Sodium Chloride 50 ML IV (22:18)
[2020-08-31] MEDS: Calcium Carbonate 750 MG TAB.CHEW PO (22:30)
[2020-08-31 23:07] LABS: CA-125 15271 U/mL (<35)
[2020-08-31] MEDS: Lactated Ringers 1,000 ML 100 ML IVCONT (23:12)
[2020-09-01] VITALS (8 sets, daily range): BP systolic 138–170; BP diastolic 60–88; PULSE 62–93; RESP 18–20; TEMP 36–36.8; O2SAT 93–96
[2020-09-01 03:08] LABS: Albumin Pleural Fluid 2.6; Glucose Pleural Fluid 74; LDH Pleural Fluid 2218; Total Protein Pleural Fluid 5.2
[2020-09-01 03:09] LABS: Amylase Pleural Fluid 152
[2020-09-01] MEDS: HYDROmorphone HCl 1 MG/ML SYRINGE IVPUSH ×5 (03:33→23:17)
[2020-09-01] MEDS: Heparin Sodium,Porcine 5,000 UNIT/ML VIAL 5000 UNIT SUBCUT ×3 (03:33→19:36)
[2020-09-01] MEDS: ondansetron HCL 4 MG/2 ML VIAL IVPUSH (03:36)
[2020-09-01] MEDS: oxyCODONE HCl Immed Release 5 MG TABLET PO (05:49)
--- NOTE | 2020-09-01 07:30 | CA_ITS ---
Transthoracic Echocardiogram Patient (Last, First, Middle): Trinity Wyatt N Gender: Female Date of : 1950 Age: 69 Procedure Date: 09/01/2020 Procedure Type: Transthoracic Echocardiogram Location: [facility] Height: 160.02 cm Weight: 73.94 kg BSA: 1.77 m2 Heart Rate: bpm BP: 164 / 68 mmHg Extension Service Supervisor: Referring MD: Adrian Garcia MD Symptoms: Cardiomegaly Study Quality: Good ECG Rhythm: Sinus Conclusions: - The left ventricular systolic function is moderately decreased. The visually estimated ejection fraction is between 35-40%. - The left atrium is moderately dilated. - There is mild calcification of the aortic valve. - There is mild mitral valve regurgitation. Findings Left Ventricle Normal left ventricular cavity size. There is moderately increased left ventricular wall thickness. The left ventricular systolic function is moderately decreased. The visually estimated ejection fraction is between 35 40%. The calculated ejection fraction is 39% by biplane method. There is moderate global hypokinesis. E/E prime ratio is between 8 and 15 consistent with indeterminate filling pressures. Evidence suggests grade I (mild) diastolic dysfunction. Right Ventricle Normal right ventricular cavity size and systolic function. Atria The left atrium is moderately dilated. The right atrium is normal in size. Aortic Valve There is a normal trileaflet aortic valve. There is mild calcification of the aortic valve. There is no aortic valve stenosis. There is no aortic valve regurgitation. Mitral Valve There is mild anterior mitral leaflet thickening. There is mild mitral valve regurgitation. There is no mitral valve stenosis. Pulmonic Valve The pulmonic valve was not well visualized. There is trace pulmonic valve regurgitation. Tricuspid Valve Normal tricuspid valve structure. There is trace tricuspid valve regurgitation. The pulmonary artery systolic pressure is normal. Great Vessels The aortic annulus, sinuses of valsalva, and asc aorta are normal in size. Venous The inferior vena cava is normal in size and collapses greater than 50% with inspiration. Pericardium/Pleural There is no evidence of pericardial effusion. Prior Study Comparison No prior study available for comparison. Measurements 2D Linear Measurements IVSd: 1.30 0.6-0.9/0.6-1.0 cm LVIDd: 5.00 3.9-5.3/4.2-5.9 cm LVIDd Index: 2.82 2.4-3.2/2.2-3.1 cm/m2 LVIDs: 3.44 2.0-3.6 cm LVPWd: 1.26 0.7-1.1 cm Ao Root: 2.60 2.1-3.5 cm LA Diam: 3.80 2.7-3.8/3.0-4.0 cm LAIDs Index: 2.15 1.5-2.3 cm/m2 LV Mass: 319.36 67-162/88-224 g LV Mass Index: 180.43 43-95/49-115 g/m2 LVOT Diam: 2.00 3.0+(-)1.3 cm 2D Systolic Function EF 4C: 36.10 >55% EF 2C: 42.40 >55% EF BiP: 38.60 >55% Mitral Valve MV Pk E: 0.52 MV PK A: 1.15 MV Decel Time: 134.00 E/A: 0.50 E'Lateral: 5.44 E'Medial: 3.48 E/E' Med: 15.00 E/E' Lat: 9.60 PHT: 39.00 MVA PHT: 5.64 Decel [place]: 3.91 Aortic Valve AoV Pk William: 1.74 AoV Mn William: 0.92 AoV VTI: 0.34 AoV Pk Grad: 12.00 Aov Mn Grad: 4.00 GABINO Cont.VTI: 1.78 LVOT LVOT Pk William: 0.86 LVOT Mn William: 0.47 LVOT VTI: 0.19 LVOT Pk Grad: 3.00 LVOT Mn Grad: 1.00 LVOT Diam: 2.00 LVOT Area: 3.14 Diastolic Function MV Pk E: 0.52 MV Pk A: 1.15 E/A: 0.50 E'Medial: 3.48 E/E' Med: 15.00 E' Laterial: 5.44 E/E' Lat: 9.60 Tricuspid Valve TR Pk William: 2.48 TR Pk Grad: 25.00 Great Vessels Aorta Ao Root-2D: 2.60 2.0-3.7 cm Pulmonary Valve PV Pk William: 1.11 Peak PV Grad: 5.00 Updated in Other Vendor System with Status of Final Nicola Osborne MD electronically signed on 09/01/2020 2:56:21 PM with status of Final
[2020-09-01] MEDS: Lactated Ringers 1,000 ML 100 ML IVCONT ×2 (08:24→23:17)
[2020-09-01] MEDS: 0.9 % Sodium Chloride Flush 3 ML SYRINGE IVFLUSH (08:24)
[2020-09-01] MEDS: Calcium Carbonate 750 MG TAB.CHEW PO ×3 (08:29→21:14)
--- NOTE | 2020-09-01 09:37 | P.PNIM_ITS ---
Subjective Subjective Date of Service: 09/01/20 Interval History: Seen in f/u for pelvic mass, ascietes, renal failure. Underwent cystoscopy right stent and bladder Bx 08/31 and deemed to have ovarian mass that is rock hard. She had paracentesis yesterday Review of Systems Gen: no fever Resp: no sob, no cough CV: no chest, no PANG, no leg edema GI: No n/v, + abd pain Neuro: No confusion Physical Exam Vital Signs: Vital Signs: Last Vital Signs Temp 98.0 F 09/01/20 07:33 Pulse 71 09/01/20 07:33 Resp 18 09/01/20 07:33 BP 160/82 H 09/01/20 07:33 Pulse Ox 95 09/01/20 07:33 Body Mass Index 28.9 Const: Other: Constitutional Awake and Alert, No apparent distress Neck Supple, No lymphadenopathy Cardiovascular RRR, No M/R/G, S1 S2, No S3 S4, 2+ pedal edema Respiratory Lungs clear, No respiratory distress Gastrointestinal mild tenderness, distended, signs of ascites, leakage from umbilicus Skin No rash-stasis dermatitis of both lower legs Neurological Alert & oriented x3 Psychological Appropriate affect Objective Data Current Medications Generic Name Dose Route Start Last Admin Trade Name Freq PRN Reason Stop Dose Admin Acetaminophen 650 mg 08/29/20 20:17 Acetaminophen 325 Mg Tablet PO Q6H PRN Pain, Mild (Pain Scale 1-3) Calcium Carbonate 750 mg 08/30/20 17:18 09/01/20 08:29 Calcium Carbonate 750 Mg Tab.Chew PO 750 mg Q4H PRN Administration Dyspepsia Fentanyl 25 mcg 08/31/20 19:42 Fentanyl Citrate/Pf 100 Mcg/2 Ml Vial IVPUSH Q5M PRN Pain, Moderate (Pain Scale 4-6 Heparin Sodium (Porcine) 5,000 unit 08/31/20 18:00 09/01/20 03:33 Heparin Sodium,Porcine 5,000 Unit/Ml Vial SUBCUT 5,000 unit Q8H DOMINICK Administration Hydromorphone HCl 1 mg 08/31/20 13:35 09/01/20 08:22 Hydromorphone Hcl 1 Mg/Ml Syringe IVPUSH 1 mg Q4H PRN Administration Breakthrough Pain Ceftriaxone Sodium 1 gm/ 50 mls @ 100 mls/hr 08/30/20 18:00 08/31/20 23:21 Sodium Chloride IV Infused Q24H DOMINICK Infusion Lactated Ringer's 1,000 mls @ 100 mls/hr 08/31/20 17:15 09/01/20 08:24 Lr IVCONT 100 mls/hr .Q10H DOMINICK Administration Methadone HCl 100 mg 08/30/20 13:45 09/01/20 08:24 Methadone Hcl 1 Mg/0.1 Ml Oral.Conc PO 100 mg DAILY DOMINICK Administration Ondansetron HCl 4 mg 08/31/20 19:42 09/01/20 03:36 Ondansetron Hcl 4 Mg/2 Ml Vial IVPUSH 4 mg ONCE PRN Administration Nausea and Vomiting Pharmacy Consult 1 each 08/29/20 17:54 Consult Rx Perform Med Rec MISCELLANE ONCE PRN Consult order Polyethylene Glycol 17 gm 08/30/20 21:00 09/01/20 08:25 Polyethylene Glycol 3350 17 Gm Powd.Pack PO Not Given BID DOMINICK Sodium Chloride 3 ml 08/30/20 00:00 09/01/20 08:24 0.9 % Sodium Chloride Flush 3 Ml Syringe IVFLUSH 3 ml QSHIFT DOMINICK Administration Labs CBC & Chem 7: 08/30/20 12:46 08/31/20 09:47 Labs: Laboratory Results - last 24 hr 08/29/20 08/30/20 08/31/20 11:56 12:46 09:47 Sodium 139 Potassium 4.9 Chloride 103 Carbon Dioxide 21 L Anion Gap 20 BUN 26 H Creatinine 1.74 H Estim Creat Clear Calc 30.2 Estimated GFR 29 Random Glucose 79 Calcium 8.6 Alpha Fetoprotein 2.8 CA 19-9 Antigen 25 CA 125 Antigen 51220 H Pleural WBC Pleural RBC Pleural Neutrophils Pleural Lymphocytes Pleural Monocytes Pleural Basophils Pleural Other Cells Pleural Total Protein Pleural Albumin Pleural LDH Pleural Glucose Pleural Amylase 08/31/20 08/31/20 14:00 14:00 Sodium Potassium Chloride Carbon Dioxide Anion Gap BUN Creatinine Estim Creat Clear Calc Estimated GFR Random Glucose Calcium Alpha Fetoprotein CA 19-9 Antigen CA 125 Antigen Pleural WBC 0.355 Pleural RBC 0.003 Pleural Neutrophils 14 Pleural Lymphocytes 28 Pleural Monocytes 51 Pleural Basophils 1 Pleural Other Cells 6 Pleural Total Protein 5.2 Pleural Albumin 2.6 Pleural LDH 2218 Pleural Glucose 74 Pleural Amylase 152 Imaging Chest x-ray: Radiologist's impression: Impressions Paracentesis Ultrasound 08/31/20 14:30 IMPRESSION: Successful ultrasound-guided paracentesis with approximately 500 mL of light yellowish fluid drained from the right mid to lower quadrant. There appear to be a lot of loculations in the abdomen. Successful ultrasound-guided umbilical mass core biopsy performed x 3. Abdomen Retroperitoneal biopsy 08/31/20 15:00 IMPRESSION: Successful ultrasound-guided paracentesis with approximately 500 mL of light yellowish fluid drained from the right mid to lower quadrant. There appear to be a lot of loculations in the abdomen. Successful ultrasound-guided umbilical mass core biopsy performed x 3. Guidance Fluoroscopy 08/31/20 19:10 IMPRESSION: Placement of double-J stent in right collecting system. Microbiology Microbiology Results: Microbiology 08/31/20 14:00 Gram Stain - Final Abdominal Fluid Routine Culture - Preliminary No growth to date. 08/29/20 14:42 Blood Culture - Preliminary Blood - Venous No growth after 48 hours. 08/29/20 14:42 Blood Culture - Preliminary Blood - Venous No growth after 48 hours. Assessment and Plan (1) NONI (acute kidney injury): Status: Acute Assessment and Plan: 69-year-old female with a past medical history of opiate dependence on methadone, tobacco dependence, COPD presented to the hospital with a chief complaint of abdominal pain/weight loss/nausea/vomiting/poor oral intake. Abdominal mass/Pelvis mass, ascites (7.8 x 4.8 x 5.0 cm complex cystic structure in unclear if this is adnexal in etiology or could reflect loculated ascites, suspect this to be likely ovarian origin. Seen by DIRECTOR OF EMAIL MARKETING (Dr. Pagan) with the following remark : Clinical scenario suspicious for ovarian cancer with possible metastatis, with the findings on ultrasound and CT scan showing a complex ovarian cyst, ascites, multiple pulmonary nodules and and umbilical mass identified on physical exam (although not seen on a CT scan). Add to Alpha fetoprotein and CEA , LDH, CA 19- 9, CA 125 as tumor markers for ovarian cancer, (likely possibility of false elevation secondary to renal failure), Consider biopsy of the umbilical mass especially if identified on MRI, ascites aspiration to identify any possible cancer cells, and pulmonary nodule biopsy if possible. If NONI is reversed and the patient is able to be discharged home , refer to Public Space Attendant Oncology service at [facility] for management if not, consider in patient transfer to Public Space Attendant Oncology Service at [facility]. During Cystscopy and bladder bx on 08/31, Dr. León noted the mass to solid ovarian mass--so she likely has metastatic ovarian cancer.Awaiting oncology evaluation. CEA and CA 125 level pending, continue pain control with dilaudid Liver cirrhosis/new onset ascites: paracentesis 08/31 no evidence of infection. could be metastatic or liver failure from Hep C UTI: Continue ceftriaxone. Follow up cultures. NONI:likely pre renal vs obstructive urolopathy, expect that this will improve with stent Tobacco dependence: Counseled on smoking cessation COPD: Stable. Celeste p.r.n. Hepatitis C--will discuss with paatient if new or old and should pursuit further treament on outpatient Opiate dependence: Patient on methadone 105 mg daily. Prophylaxis: SCD boots Code status: Full code
--- NOTE | 2020-09-01 11:00 | PM.PNNEP ---
Subjective Subjective Date of Service: 09/02/20 Interval history: Events noted s/p Cysto 08/31 Now with ovarian mass and seen by Hem/Onc Physical Exam Vital Signs: Vital Signs: Last Vital Signs Temp 98.0 F 09/01/20 07:33 Pulse 71 09/01/20 07:33 Resp 18 09/01/20 07:33 BP 160/82 H 09/01/20 07:33 Pulse Ox 95 09/01/20 07:33 Body Mass Index 28.9 Const: General: alert Resp: Auscultation: clear to auscultation bilaterally Cardio: Heart sounds: no rubs Neuro: Motor exam (neuro): no asterixis Objective Data Labs CBC & Chem 7: 08/30/20 12:46 09/01/20 09:52 Labs: Laboratory Results - last 24 hr 08/29/20 08/30/20 08/31/20 11:56 12:46 14:00 Alpha Fetoprotein 2.8 CA 19-9 Antigen 25 CA 125 Antigen 56522 H Pleural WBC Pleural RBC Pleural Neutrophils Pleural Lymphocytes Pleural Monocytes Pleural Basophils Pleural Other Cells Pleural Total Protein 5.2 Pleural Albumin 2.6 Pleural LDH 2218 Pleural Glucose 74 Pleural Amylase 152 08/31/20 14:00 Alpha Fetoprotein CA 19-9 Antigen CA 125 Antigen Pleural WBC 0.355 Pleural RBC 0.003 Pleural Neutrophils 14 Pleural Lymphocytes 28 Pleural Monocytes 51 Pleural Basophils 1 Pleural Other Cells 6 Pleural Total Protein Pleural Albumin Pleural LDH Pleural Glucose Pleural Amylase Microbiology Microbiology Results: Microbiology 08/31/20 14:00 Abdominal Fluid Gram Stain - Final 08/31/20 14:00 Abdominal Fluid Routine Culture - Preliminary No growth to date. 08/29/20 14:42 Blood - Venous Blood Culture - Preliminary No growth after 48 hours. 08/29/20 14:42 Blood - Venous Blood Culture - Preliminary No growth after 48 hours. 08/29/20 Unknown Urine clean catch - Clean Catch Midstream Urine Culture - Final Assessment & Plan Assessment and plan (1) NONI (acute kidney injury): Status: Acute Assessment and Plan: Right hydro s/p cysto Repeat labs pending Keep I > O No indication for dialysis Shall follow with team Time Spent With Patient Time: Total time spent is greater than 50% in coordination of care (as documented) at patient's floor/unit and/or counseling patient: Procedures Date of Service Date of Service: 09/01/20
[2020-09-01 11:07] LABS: Anion Gap 18 (12-20); Blood Urea Nitrogen 26 mg/dL (9-16); Calcium 8.7 mg/dL (8.4-10.2); Carbon Dioxide 23 mmol/L (22-29); Chloride 102 mmol/L (96-108); Creatinine Clr Calc Pharmacy 30.6; Estimated Glomerular Filt Rate 30; Glucose Random 77 mg/dL (60-115); Magnesium 1.9 mg/dL (1.6-2.6); Potassium 5.2 mmol/L (3.3-5.1); Sodium 138 mmol/L (135-145)
--- NOTE | 2020-09-01 12:26 | PM.PNGS ---
Subjective Subjective Date of Service: 09/01/20 Interval history: has abdominal pain poor appetitie frequent nausea Physical Exam Vital Signs: Vital Signs: Last Vital Signs Temp 98.0 F 09/01/20 11:23 Pulse 74 09/01/20 11:23 Resp 18 09/01/20 11:23 BP 152/72 H 09/01/20 11:23 Pulse Ox 96 09/01/20 11:23 Body Mass Index 28.9 Laboratory Results - last 24 hr 08/29/20 08/30/20 08/31/20 11:56 12:46 14:00 Sodium Potassium Chloride Carbon Dioxide Anion Gap BUN Creatinine Estim Creat Clear Calc Estimated GFR Random Glucose Calcium Magnesium Alpha Fetoprotein 2.8 CA 19-9 Antigen 25 CA 125 Antigen 77086 H Pleural WBC Pleural RBC Pleural Neutrophil s Pleural Lymphocyte s Pleural Monocytes Pleural Basophils Pleural Other Cell s Pleural Total Prot ein 5.2 Pleural Albumin 2.6 Pleural LDH 2218 Pleural Glucose 74 Pleural Amylase 152 08/31/20 09/01/20 14:00 09:52 Sodium 138 Potassium 5.2 H Chloride 102 Carbon Dioxide 23 Anion Gap 18 BUN 26 H Creatinine 1.72 H Estim Creat Clear Calc 30.6 Estimated GFR 30 Random Glucose 77 Calcium 8.7 Magnesium 1.9 Alpha Fetoprotein CA 19-9 Antigen CA 125 Antigen Pleural WBC 0.355 Pleural RBC 0.003 Pleural Neutrophil s 14 Pleural Lymphocyte s 28 Pleural Monocytes 51 Pleural Basophils 1 Pleural Other Cell s 6 Pleural Total Prot ein Pleural Albumin Pleural LDH Pleural Glucose Pleural Amylase Const: Other: looks uncomfortable General: no acute distress Resp: Effort & Inspection: normal respiratory effort GI: Other: has ascites, umbilicus with drainage and discoloration,. no cellulitis Extrem: General: Yes edema Progress Note: A&P Assessment and plan (1) Generalized continuous abdominal pain: Status: Acute Assessment and Plan: with ascites, umbillical drainage likely ovarian malignancy paracentesis done cystoscopy with stent placement done await path reports continue current care seen by Oncology dry dressings to umbilicus Fall Risk Details Current Medications: Current Medications Generic Name Dose Route Start Last Admin Trade Name Freq PRN Reason Stop Dose Admin Acetaminophen 650 mg 08/29/20 20:17 Acetaminophen 325 Mg Tablet PO Q6H PRN Pain, Mild (Pain Scale 1-3) Calcium Carbonate 750 mg 08/30/20 17:18 09/01/20 08:29 Calcium Carbonate 750 Mg Tab.Chew PO 750 mg Q4H PRN Administration Dyspepsia Fentanyl 25 mcg 08/31/20 19:42 Fentanyl Citrate/Pf 100 Mcg/2 Ml Vial IVPUSH Q5M PRN Pain, Moderate (Pain Scale 4-6 Heparin Sodium (Porcine) 5,000 unit 08/31/20 18:00 09/01/20 09:57 Heparin Sodium,Porcine 5,000 Unit/Ml Vial SUBCUT 5,000 unit Q8H DOMINICK Administration Hydromorphone HCl 1 mg 08/31/20 13:35 09/01/20 08:22 Hydromorphone Hcl 1 Mg/Ml Syringe IVPUSH 1 mg Q4H PRN Administration Breakthrough Pain Ceftriaxone Sodium 1 gm/ 50 mls @ 100 mls/hr 08/30/20 18:00 08/31/20 23:21 Sodium Chloride IV Infused Q24H DOMINICK Infusion Lactated Ringer's 1,000 mls @ 100 mls/hr 08/31/20 17:15 09/01/20 08:24 Lr IVCONT 100 mls/hr .Q10H DOMINICK Administration Methadone HCl 100 mg 08/30/20 13:45 09/01/20 08:24 Methadone Hcl 1 Mg/0.1 Ml Oral.Conc PO 100 mg DAILY DOMINICK Administration Ondansetron HCl 4 mg 08/31/20 19:42 09/01/20 03:36 Ondansetron Hcl 4 Mg/2 Ml Vial IVPUSH 4 mg ONCE PRN Administration Nausea and Vomiting Pharmacy Consult 1 each 08/29/20 17:54 Consult Rx Perform Med Rec MISCELLANE ONCE PRN Consult order Polyethylene Glycol 17 gm 08/30/20 21:00 09/01/20 08:25 Polyethylene Glycol 3350 17 Gm Powd.Pack PO Not Given BID DOMINICK Sodium Chloride 3 ml 08/30/20 00:00 09/01/20 08:24 0.9 % Sodium Chloride Flush 3 Ml Syringe IVFLUSH 3 ml QSHIFT DOMINICK Administration Time Spent With Patient Time: Total time spent is greater than 50% in coordination of care (as documented) at patient's floor/unit and/or counseling patient: Time with patient: 15 - 24 minutes Procedures Date of Service Date of Service: 09/01/20
[2020-09-01] MEDS: HYDROmorphone HCl 2 MG TABLET PO ×2 (14:27→21:12)
--- NOTE | 2020-09-01 14:44 | HO.POSTANES ---
Post Anesthesia Evaluation Post Anesthesia Evaluation Vital Signs: Vital Signs Temp Pulse Resp BP Pulse Ox 09/01/20 11:23 98.0 F 74 18 152/72 H 96 09/01/20 07:33 98.0 F 71 18 160/82 H 95 09/01/20 03:33 18 09/01/20 03:20 98.0 F 93 20 152/88 H 96 Anesthesia: General Mental Status: Awake Pain Control: Satisfactory Nausea/Vomiting: None Hydration: Adequate Anesthesia-Related Issues: No Anes. Related Issues
[2020-09-01 14:52] LABS: Anti Nuclear Antibody Pattern Nuclear, Speckled; Anti Nuclear Antibody Screen POSITIVE (NEGATIVE)
--- NOTE | 2020-09-01 15:02 | PC.NURSE ---
Pt has daughters in the room who were seen disconnecting chair alarm and taking pt to the bathroom without staff. RN educated family and pt about fall risk policy and that a staff member should assist pt and to please leave chair alarm in place. Discussed w/two different daughters. Daughters state its ok we are in here Rn re-educated family on policy - they continue to ignore it at this time.
[2020-09-01 19:27] LABS: CMV DNA PCR Qn Source Whole Blood; CMV DNA Qn PCR <2.30 log IU/mL (<2.30); CMV DNA Qn Real Time PCR <200 IU/mL (<200)
[2020-09-01] MEDS: cefTRIAXone sodium 1 GM in 0.9 % Sodium Chloride 50 ML IV (19:35)
[2020-09-02] VITALS (8 sets, daily range): BP systolic 138–177; BP diastolic 52–99; PULSE 67–110; RESP 15–20; TEMP 36.1–37.2; O2SAT 94–96
[2020-09-02] MEDS: HYDROmorphone HCl 2 MG TABLET PO ×3 (01:54→11:15)
[2020-09-02] MEDS: Heparin Sodium,Porcine 5,000 UNIT/ML VIAL 5000 UNIT SUBCUT ×3 (01:55→17:00)
[2020-09-02] MEDS: HYDROmorphone HCl 1 MG/ML SYRINGE IVPUSH ×2 (04:15→14:39)
[2020-09-02 07:26] LABS: Hepatitis A Antibody IgM 0.62 Index (0-0.79); ~Hepatitis A Antibody IgM Nonreactive (Nonreactive)
[2020-09-02] MEDS: fentaNYL citrate/PF 100 MCG/2 ML VIAL 25 MCG IVPUSH (07:28)
[2020-09-02] MEDS: 0.9 % Sodium Chloride Flush 3 ML SYRINGE IVFLUSH ×3 (07:32→20:12)
[2020-09-02 07:46] LABS: EBV Source Whole Blood
[2020-09-02] MEDS: Lactated Ringers 1,000 ML 100 ML IVCONT (08:37)
[2020-09-02] MEDS: polyethylene glycoL 3350 17 GM POWD.PACK PO (08:37)
[2020-09-02] MEDS: Calcium Carbonate 750 MG TAB.CHEW PO ×2 (08:41→14:35)
--- NOTE | 2020-09-02 10:03 | PM.PNNEP ---
Subjective Subjective Date of Service: 09/03/20 Interval history: Events noted s/p Cysto 08/31 Now with ovarian mass and seen by Hem/Onc Physical Exam Vital Signs: Vital Signs: Last Vital Signs Temp 96.9 F 09/02/20 08:00 Pulse 110 H 09/02/20 08:00 Resp 18 09/02/20 08:00 BP 142/82 H 09/02/20 08:00 Pulse Ox 96 09/02/20 08:00 Body Mass Index 28.9 Const: General: alert Resp: Auscultation: clear to auscultation bilaterally Cardio: Heart sounds: no rubs Neuro: Motor exam (neuro): no asterixis Objective Data Labs CBC & Chem 7: 08/30/20 12:46 09/02/20 14:36 Labs: Laboratory Results - last 24 hr 08/29/20 08/30/20 08/30/20 11:56 12:46 12:46 Sodium Potassium Chloride Carbon Dioxide Anion Gap BUN Creatinine Estim Creat Clear Calc Estimated GFR Random Glucose Calcium Magnesium NATHANIEL Screen POSITIVE A NATHANIEL Titer 1:320 H NATHANIEL Pattern Nuclear, Speckled A CMV Specimen Source Whole Blood CMV Qnt PCR IU/mL <200 CMV Qnt PCR log IU/mL <2.30 EBV Source Whole Blood Hepatitis A IgM Ab Nonreactive 09/01/20 09:52 Sodium 138 Potassium 5.2 H Chloride 102 Carbon Dioxide 23 Anion Gap 18 BUN 26 H Creatinine 1.72 H Estim Creat Clear Calc 30.6 Estimated GFR 30 Random Glucose 77 Calcium 8.7 Magnesium 1.9 NATHANIEL Screen NATHANIEL Titer NATHANIEL Pattern CMV Specimen Source CMV Qnt PCR IU/mL CMV Qnt PCR log IU/mL EBV Source Hepatitis A IgM Ab Microbiology Microbiology Results: Microbiology 08/31/20 14:00 Abdominal Fluid Gram Stain - Final 08/31/20 14:00 Abdominal Fluid Routine Culture - Final No growth after 2 days 08/29/20 14:42 Blood - Venous Blood Culture - Preliminary No growth after 48 hours. 08/29/20 14:42 Blood - Venous Blood Culture - Preliminary No growth after 48 hours. 08/29/20 Unknown Urine clean catch - Clean Catch Midstream Urine Culture - Final Assessment & Plan Assessment and plan (1) NONI (acute kidney injury): Status: Acute Assessment and Plan: Right hydro s/p cysto Repeat labs pending Keep I > O No indication for dialysis Shall follow with team Time Spent With Patient Time: Total time spent is greater than 50% in coordination of care (as documented) at patient's floor/unit and/or counseling patient: Procedures Date of Service Date of Service: 09/02/20
--- NOTE | 2020-09-02 14:18 | P.PNIM_ITS ---
Subjective Subjective Date of Service: 09/04/20 Interval History: Seen in f/u for pelvic mass, ascietes, renal failure. Underwent cystoscopy right stent and bladder Bx 08/31 and deemed to have ovarian mass that is rock hard. She is complaining of lots of pain and with minimal relief from pain meds Review of Systems Gen: no fever Resp: no sob, no cough CV: no chest, no PANG, no leg edema GI: No n/v, + abd pain Neuro: No confusion Physical Exam Vital Signs: Vital Signs: Last Vital Signs Temp 97.8 F 09/02/20 11:57 Pulse 81 09/02/20 11:57 Resp 18 09/02/20 11:57 BP 152/78 H 09/02/20 11:57 Pulse Ox 96 09/02/20 11:57 Body Mass Index 28.9 Const: Other: Other: Constitutional Awake and Alert, No apparent distress Neck Supple, No lymphadenopathy Cardiovascular RRR, No M/R/G, S1 S2, No S3 S4, 2+ pedal edema Respiratory Lungs clear, No respiratory distress Gastrointestinal mild tenderness, distended, signs of ascites, leakage from umbilicus Skin No rash-stasis dermatitis of both lower legs Neurological Alert & oriented x3 Psychological Appropriate affec Objective Data Current Medications Generic Name Dose Route Start Last Admin Trade Name Freq PRN Reason Stop Dose Admin Acetaminophen 650 mg 08/29/20 20:17 Acetaminophen 325 Mg Tablet PO Q6H PRN Pain, Mild (Pain Scale 1-3) Calcium Carbonate 750 mg 08/30/20 17:18 09/02/20 08:41 Calcium Carbonate 750 Mg Tab.Chew PO 750 mg Q4H PRN Administration Dyspepsia Fentanyl 25 mcg 08/31/20 19:42 09/02/20 07:28 Fentanyl Citrate/Pf 100 Mcg/2 Ml Vial IVPUSH 25 mcg Q5M PRN Administration Pain, Moderate (Pain Scale 4-6 Heparin Sodium (Porcine) 5,000 unit 08/31/20 18:00 09/02/20 09:43 Heparin Sodium,Porcine 5,000 Unit/Ml Vial SUBCUT 5,000 unit Q8H DOMINICK Administration Hydromorphone HCl 1 mg 08/31/20 13:35 09/02/20 04:15 Hydromorphone Hcl 1 Mg/Ml Syringe IVPUSH 1 mg Q4H PRN Administration Breakthrough Pain Hydromorphone HCl 2 mg 09/01/20 14:18 09/02/20 11:15 Hydromorphone Hcl 2 Mg Tablet PO 2 mg Q4H PRN Administration Pain, Severe (Pain Scale 7-10) Ceftriaxone Sodium 1 gm/ 50 mls @ 100 mls/hr 08/30/20 18:00 09/01/20 20:40 Sodium Chloride IV Infused Q24H DOMINICK Infusion Lactated Ringer's 1,000 mls @ 100 mls/hr 08/31/20 17:15 09/02/20 08:37 Lr IVCONT 100 mls/hr .Q10H DOMINICK Administration Methadone HCl 100 mg 08/30/20 13:45 09/02/20 08:36 Methadone Hcl 1 Mg/0.1 Ml Oral.Conc PO 100 mg DAILY DOMINICK Administration Ondansetron HCl 4 mg 08/31/20 19:42 09/01/20 03:36 Ondansetron Hcl 4 Mg/2 Ml Vial IVPUSH 4 mg ONCE PRN Administration Nausea and Vomiting Pharmacy Consult 1 each 08/29/20 17:54 Consult Rx Perform Med Rec MISCELLANE ONCE PRN Consult order Polyethylene Glycol 17 gm 08/30/20 21:00 09/02/20 08:37 Polyethylene Glycol 3350 17 Gm Powd.Pack PO 17 gm BID DOMINICK Administration Sodium Chloride 3 ml 08/30/20 00:00 09/02/20 07:32 0.9 % Sodium Chloride Flush 3 Ml Syringe IVFLUSH 3 ml QSHIFT DOMINICK Administration Labs CBC & Chem 7: 09/03/20 16:21 09/04/20 05:40 Labs: Laboratory Results - last 24 hr 08/29/20 08/30/20 08/30/20 11:56 12:46 12:46 NATHANIEL Screen POSITIVE A NATHANIEL Titer 1:320 H NATHANIEL Titer 2 TNP NATHANIEL Titer 3 TNP NATHANIEL Pattern Nuclear, Speckled A NATHANIEL Pattern 2 TNP NATHANIEL Pattern 3 TNP CMV Specimen Source Whole Blood CMV Qnt PCR IU/mL <200 CMV Qnt PCR log IU/mL <2.30 EBV Source Whole Blood Hepatitis A IgM Ab Nonreactive Microbiology Microbiology Results: Microbiology 08/31/20 14:00 Gram Stain - Final Abdominal Fluid Routine Culture - Final No growth after 2 days Quality Stroke Does the patient have a stroke diagnosis?: No VTE Prior VTE?: No VTE Risk Level:: Medical - moderate - high VTE Device Contraindication: N/A - Device Ordered VTE Drug Contraindication: N/A - Med Ordered Assessment and Plan (1) NONI (acute kidney injury): Status: Acute Assessment and Plan: 69-year-old female with a past medical history of opiate dependence on methadone, tobacco dependence, COPD presented to the hospital with a chief complaint of abdominal pain/weight loss/nausea/vomiting/poor oral intake. Abdominal mass/Pelvis mass, ascites (7.8 x 4.8 x 5.0 cm complex cystic structure in unclear if this is adnexal in etiology or could reflect loculated ascites, suspect this to be likely ovarian origin. Seen by PROPERTY SITE MANAGER (Dr. Pagan) with the following remark : Clinical scenario suspicious for ovarian cancer with possible metastatis, with the findings on ultrasound and CT scan showing a complex ovarian cyst, ascites, multiple pulmonary nodules and and umbilical mass identified on physical exam (although not seen on a CT scan). Add to Alpha fetoprotein and CEA , LDH, CA 19- 9, CA 125 as tumor markers for ovarian cancer, (likely possibility of false elevation secondary to renal failure), Consider biopsy of the umbilical mass especially if identified on MRI, ascites aspiration to identify any possible cancer cells, and pulmonary nodule biopsy if possible. If NONI is reversed and the patient is able to be discharged home , refer to Teletypewriter Operator Oncology service at [facility] for management if not, consider in patient transfer to Teletypewriter Operator Oncology Service at [facility]. During Cystscopy and bladder bx on 08/31, Dr. León noted the mass to solid ovarian mass--so she likely has metastatic ovarian cancer.Awaiting oncology evaluation. CEA and CA 125 level pending, continue pain control with dilaudid Liver cirrhosis/new onset Ascites: paracentesis 08/31 no evidence of infection. could be metastatic or liver failure from Hep C UTI: Continue ceftriaxone. Cultures negative, DC Abx tomorrow NONI:likely pre renal vs obstructive urolopathy, expect that this will improve with stent, check lab today Tobacco dependence: Counseled on smoking cessation COPD: Stable. Celeste p.r.n. Hepatitis C--(She did say she had Hep C at 20, I am not sure how accureate that is ) Opiate dependence: Patient on methadone 105 mg daily. Prophylaxis: Heparin Code status: Full code Plan of care discussed with patient and daugther at bedside
[2020-09-02] MEDS: Acetaminophen 325 MG TABLET 650 MG PO (14:39)
[2020-09-02 15:06] LABS: Anion Gap 14 (12-20); Blood Urea Nitrogen 21 mg/dL (9-16); Calcium 9.1 mg/dL (8.4-10.2); Carbon Dioxide 28 mmol/L (22-29); Chloride 102 mmol/L (96-108); Creatinine Clr Calc Pharmacy 32.2; Estimated Glomerular Filt Rate 31; Glucose Random 96 mg/dL (60-115); Potassium 5.3 mmol/L (3.3-5.1); Sodium 139 mmol/L (135-145)
[2020-09-02] MEDS: cefTRIAXone sodium 1 GM in 0.9 % Sodium Chloride 50 ML IV (17:00)
[2020-09-02] MEDS: HYDROmorphone HCl 2 MG/ML VIAL 1.5 MG IVPUSH ×2 (18:22→23:50)
[2020-09-03] VITALS (8 sets, daily range): BP systolic 152–180; BP diastolic 60–86; PULSE 66–83; RESP 16–18; TEMP 36.1–36.4; O2SAT 93–96
[2020-09-03] MEDS: Heparin Sodium,Porcine 5,000 UNIT/ML VIAL 5000 UNIT SUBCUT ×3 (01:00→18:17)
[2020-09-03] MEDS: HYDROmorphone HCl 2 MG/ML VIAL 1.5 MG IVPUSH ×2 (03:51→08:09)
[2020-09-03 06:31] LABS: CA-125 12485 U/mL (<35)
[2020-09-03] MEDS: polyethylene glycoL 3350 17 GM POWD.PACK PO ×2 (08:10→20:23)
[2020-09-03] MEDS: 0.9 % Sodium Chloride Flush 3 ML SYRINGE IVFLUSH ×3 (08:10→20:23)
--- NOTE | 2020-09-03 09:16 | PM.PNNEP ---
Subjective Subjective Date of Service: 09/03/20 Interval history: Events noted Family at bedside Physical Exam Vital Signs: Vital Signs: Last Vital Signs Temp 97 F 09/03/20 07:20 Pulse 76 09/03/20 07:20 Resp 18 09/03/20 07:20 BP 180/86 H 09/03/20 07:20 Pulse Ox 96 09/03/20 07:20 Body Mass Index 28.9 Const: General: alert Resp: Auscultation: clear to auscultation bilaterally Cardio: Heart sounds: no rubs Neuro: Motor exam (neuro): no asterixis Objective Data Labs CBC & Chem 7: 08/30/20 12:46 09/02/20 14:36 Labs: Laboratory Results - last 24 hr 08/29/20 09/01/20 09/02/20 11:56 09:52 14:36 Sodium 139 Potassium 5.3 H Chloride 102 Carbon Dioxide 28 Anion Gap 14 BUN 21 H Creatinine 1.63 H Estim Creat Clear Calc 32.2 Estimated GFR 31 Random Glucose 96 Calcium 9.1 CA 125 Antigen 57686 H NATHANIEL Titer 2 TNP NATHANIEL Titer 3 TNP NATHANIEL Pattern 2 TNP NATHANIEL Pattern 3 TNP Microbiology Microbiology Results: Microbiology 08/31/20 14:00 Abdominal Fluid Gram Stain - Final 08/31/20 14:00 Abdominal Fluid Routine Culture - Final No growth after 2 days 08/29/20 14:42 Blood - Venous Blood Culture - Preliminary No growth after 48 hours. 08/29/20 14:42 Blood - Venous Blood Culture - Preliminary No growth after 48 hours. 08/29/20 Unknown Urine clean catch - Clean Catch Midstream Urine Culture - Final Assessment & Plan Assessment and plan (1) NONI (acute kidney injury): Status: Acute Assessment and Plan: Right hydro s/p cysto and stent Creatinine unchanged Keep I > O No indication for dialysis h/o Hep C (?) Pelvic mass- possible ovarian Shall follow with team Time Spent With Patient Time: Total time spent is greater than 50% in coordination of care (as documented) at patient's floor/unit and/or counseling patient: Procedures Date of Service Date of Service: 09/03/20 Progress Note: Quality Stroke Does the patient have a stroke diagnosis?: No
[2020-09-03] MEDS: Sennosides 8.6 MG TABLET 17.2 MG PO (09:46)
[2020-09-03] MEDS: Docusate Sodium 100 MG CAPSULE PO ×2 (09:48→20:23)
[2020-09-03] MEDS: HYDROmorphone HCl 2 MG TABLET 4 MG PO ×3 (12:04→21:16)
[2020-09-03] MEDS: Metoprolol Tartrate 25 MG TABLET PO ×2 (12:05→20:23)
--- NOTE | 2020-09-03 12:28 | P.PNIM_ITS ---
Subjective Subjective Date of Service: 09/03/20 Interval History: Seen and examined this morning in follow-up for pelvic mass Continues to have abdominal pain No overnight events This morning had 4 beat run of V-tach, patient remained asymptomatic Review of Systems Review of Systems: Yes all other systems are reviewed and are negative Constitutional Constitutional: Denies chills and Denies fever(s) Cardiovascular Cardiovascular: Denies chest pain Respiratory Respiratory: Denies cough Gastrointestinal Gastrointestinal: Reports abdominal pain Physical Exam Vital Signs: Vital Signs: Last Vital Signs Temp 97 F 09/03/20 11:22 Pulse 82 09/03/20 12:05 Resp 18 09/03/20 11:22 BP 152/80 H 09/03/20 12:05 Pulse Ox 96 09/03/20 11:22 Body Mass Index 28.9 Const: General: comfortable, no acute distress, alert and awake Nutritional Appearance: well nourished Orientation/consciousness: patient oriented x3 HENMT: Head: Yes normocephalic and Yes atraumatic Eyes: Sclerae: sclerae normal Chest: Chest palpation & inspection: normal inspection of the chest Resp: Effort & Inspection: normal respiratory effort and no respiratory distress Cardio: Rate: regular rate Rhythm: regular rhythm GI: Palpation (GI): Soft to palpation and nontender Skin: Other: b/l lower extremity venous stasis changes Neuro: General: patient oriented x3 Cranial nerves: Yes CN's II-XII intact bilaterally and Yes Bilaterally intact EOM present Objective Data Current Medications Generic Name Dose Route Start Last Admin Trade Name Freq PRN Reason Stop Dose Admin Acetaminophen 650 mg 08/29/20 20:17 09/02/20 14:39 Acetaminophen 325 Mg Tablet PO 650 mg Q6H PRN Administration Pain, Mild (Pain Scale 1-3) Calcium Carbonate 750 mg 08/30/20 17:18 09/02/20 14:35 Calcium Carbonate 750 Mg Tab.Chew PO 750 mg Q4H PRN Administration Dyspepsia Docusate Sodium 100 mg 09/03/20 10:00 09/03/20 09:48 Docusate Sodium 100 Mg Capsule PO 100 mg BID DOMINICK Administration Fentanyl 25 mcg 08/31/20 19:42 09/02/20 07:28 Fentanyl Citrate/Pf 100 Mcg/2 Ml Vial IVPUSH 25 mcg Q5M PRN Administration Pain, Moderate (Pain Scale 4-6 Heparin Sodium (Porcine) 5,000 unit 08/31/20 18:00 09/03/20 09:48 Heparin Sodium,Porcine 5,000 Unit/Ml Vial SUBCUT 5,000 unit Q8H DOMINICK Administration Hydromorphone HCl 1.5 mg 09/02/20 14:42 09/03/20 08:09 Hydromorphone Hcl 2 Mg/Ml Vial IVPUSH 1.5 mg Q4H PRN Administration Breakthrough Pain Hydromorphone HCl 4 mg 09/03/20 09:30 09/03/20 12:04 Hydromorphone Hcl 2 Mg Tablet PO 4 mg Q4H PRN Administration Pain, Moderate (Pain Scale 4-6 Ceftriaxone Sodium 1 gm/ 50 mls @ 100 mls/hr 08/30/20 18:00 09/02/20 17:31 Sodium Chloride IV Infused Q24H DOMINICK Infusion Methadone HCl 100 mg 08/30/20 13:45 09/03/20 09:50 Methadone Hcl 1 Mg/0.1 Ml Oral.Conc PO 100 mg DAILY DOMINICK Administration Metoprolol Tartrate 25 mg 09/03/20 12:00 09/03/20 12:05 Metoprolol Tartrate 25 Mg Tablet PO 25 mg BID DOMINICK Administration Protocol Ondansetron HCl 4 mg 08/31/20 19:42 09/01/20 03:36 Ondansetron Hcl 4 Mg/2 Ml Vial IVPUSH 4 mg ONCE PRN Administration Nausea and Vomiting Pharmacy Consult 1 each 08/29/20 17:54 Consult Rx Perform Med Rec MISCELLANE ONCE PRN Consult order Polyethylene Glycol 17 gm 08/30/20 21:00 09/03/20 08:10 Polyethylene Glycol 3350 17 Gm Powd.Pack PO 17 gm BID DOMINICK Administration Senna 17.2 mg 09/03/20 10:00 09/03/20 09:46 Sennosides 8.6 Mg Tablet PO 17.2 mg DAILY DOMINICK Administration Sodium Chloride 3 ml 08/30/20 00:00 09/03/20 08:10 0.9 % Sodium Chloride Flush 3 Ml Syringe IVFLUSH 3 ml QSHIFT DOMINICK Administration Labs CBC & Chem 7: 08/30/20 12:46 09/02/20 14:36 Labs: Laboratory Results - last 24 hr 08/30/20 09/01/20 09/02/20 12:46 09:52 14:36 Sodium 139 Potassium 5.3 H Chloride 102 Carbon Dioxide 28 Anion Gap 14 BUN 21 H Creatinine 1.63 H Estim Creat Clear Calc 32.2 Estimated GFR 31 Random Glucose 96 Calcium 9.1 CA 125 Antigen 05864 H EBV DNA (PCR) SEE NOTE Quality Stroke Does the patient have a stroke diagnosis?: No VTE Prior VTE?: No VTE Risk Level:: Medical - moderate - high VTE Device Contraindication: Treatment Not Indicated VTE Drug Contraindication: N/A - Med Ordered Assessment and Plan (1) NONI (acute kidney injury): Status: Acute Assessment and Plan: This is a 69-year-old female with a past medical history of opiate dependence on methadone, tobacco dependence, COPD presented to the hospital with a chief complaint of abdominal pain/weight loss/nausea/vomiting/poor oral intake found to have pelvic mass 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 Pelvis mass Concerning for ovarian cancer Seen by [facility], Dr. Pagan as well as oncology - Plan to refer to [facility] at [facility] as outpatient CA 19-9 25, CEA 1.80, [place] 125 [id number] -Transition pain medication to PO in anticipation of discharge Constipation Likely secondary to opiates, decreased p.o. intake -bowel regimen NSVT 4 beat run of NSVT echo from 09/01 shows LVEF 35-40% -will start low-dose [id number] -cardiology consult Liver cirrhosis/new onset Ascites paracentesis 08/31 no evidence of infection. could be metastatic or liver failure from Hep C -outpatient follow-up with GI NONI: In setting pelvic mass/ obstructive active uropathy s/p cystoscopy with right stent placement 08/31 Creatinine trending down. Patient declined labs today -nephrology following -attempt to redraw labs in a.m. Mild hyperkalemia K 5.3 from 09/02, declined labs this morning -will attempt to redraw in a.m. Tobacco dependence: Counseled on smoking cessation COPD: Stable. Celeste p.r.n. Hepatitis C- h/o HCV. HepCAb + UTI: has completed treatment Opiate dependence: -continue methadone 105 mg daily. DVT Prophylaxis: Heparin Code status: Full code Plan of care discussed with patient and 3 daughters at bedside Attending-Dr. Hernandez
[2020-09-03 16:48] LABS: Hematocrit 33.1 % (37-47); Hemoglobin 10.5 g/dl (12.0-16.0); Mean Corpuscular HGB Conc 31.7 g/dl (31.0-35.0); Mean Corpuscular Hemoglobin 29.4 pg (27.0-33.0); Mean Corpuscular Volume 92.7 fL (80-98); Mean Platelet Volume 10.7 fL (9.4-12.3); PLT CLUMP 1; Red Blood Count 3.57 X10*6/uL (4.20-5.50); Red Cell Distribution Width 16.9 % (11.0-16.0)
[2020-09-03 16:56] LABS: Anion Gap 14 (12-20); Blood Urea Nitrogen 22 mg/dL (9-16); Carbon Dioxide 26 mmol/L (22-29); Chloride 102 mmol/L (96-108); Creatinine Clr Calc Pharmacy 34.6; Estimated Glomerular Filt Rate 34; Glucose Random 85 mg/dL (60-115); Potassium 5.3 mmol/L (3.3-5.1); Sodium 137 mmol/L (135-145)
[2020-09-03 17:03] LABS: Platelet Count 308 X10*3/uL (160-400)
[2020-09-03] MEDS: cefTRIAXone sodium 1 GM in 0.9 % Sodium Chloride 50 ML IV (18:16)
[2020-09-03] MEDS: Calcium Carbonate 750 MG TAB.CHEW PO (18:20)
[2020-09-04] VITALS (7 sets, daily range): BP systolic 148–182; BP diastolic 72–90; PULSE 62–82; RESP 17–18; TEMP 36.1–36.6; O2SAT 96–98
[2020-09-04] MEDS: Heparin Sodium,Porcine 5,000 UNIT/ML VIAL 5000 UNIT SUBCUT ×2 (01:37→11:10)
[2020-09-04] MEDS: HYDROmorphone HCl 2 MG TABLET 4 MG PO ×3 (03:25→16:02)
[2020-09-04] MEDS: Calcium Carbonate 750 MG TAB.CHEW PO (03:49)
[2020-09-04 06:40] LABS: Anion Gap 19 (12-20); Blood Urea Nitrogen 22 mg/dL (9-16); Calcium 9.5 mg/dL (8.4-10.2); Carbon Dioxide 25 mmol/L (22-29); Chloride 100 mmol/L (96-108); Creatinine Clr Calc Pharmacy 36.6; Estimated Glomerular Filt Rate 36; Glucose Random 71 mg/dL (60-115); Potassium 5.1 mmol/L (3.3-5.1); Sodium 139 mmol/L (135-145)
[2020-09-04 06:42] LABS: Magnesium 1.8 mg/dL (1.6-2.6)
[2020-09-04] MEDS: Sennosides 8.6 MG TABLET 17.2 MG PO (07:41)
[2020-09-04] MEDS: Metoprolol Tartrate 25 MG TABLET PO (07:41)
[2020-09-04] MEDS: Docusate Sodium 100 MG CAPSULE PO (07:42)
[2020-09-04] MEDS: polyethylene glycoL 3350 17 GM POWD.PACK PO (07:43)
[2020-09-04] MEDS: 0.9 % Sodium Chloride Flush 3 ML SYRINGE IVFLUSH (07:43)
--- NOTE | 2020-09-04 10:16 | PM.PNNEP ---
Subjective Subjective Date of Service: 09/04/20 Interval history: Events noted Family at bedside Physical Exam Vital Signs: Vital Signs: Last Vital Signs Temp 97 F 09/04/20 07:27 Pulse 77 09/04/20 07:41 Resp 17 09/04/20 07:27 BP 182/90 H 09/04/20 07:41 Pulse Ox 97 09/04/20 07:27 Body Mass Index 28.9 Const: General: alert Resp: Auscultation: clear to auscultation bilaterally Cardio: Heart sounds: no rubs Neuro: Motor exam (neuro): no asterixis Objective Data Labs CBC & Chem 7: 09/03/20 16:21 09/04/20 05:40 Labs: Laboratory Results - last 24 hr 08/30/20 09/03/20 09/03/20 12:46 16:21 16:21 WBC 13.0 H RBC 3.57 L Hgb 10.5 L Hct 33.1 L MCV 92.7 MCH 29.4 MCHC 31.7 RDW 16.9 H Plt Count 308 MPV 10.7 Absolute Nucleated RBC 0.000 Nucleated RBC % (auto) 0.0 Sodium 137 Potassium 5.3 H Chloride 102 Carbon Dioxide 26 Anion Gap 14 BUN 22 H Creatinine 1.52 H Estim Creat Clear Calc 34.6 Estimated GFR 34 Random Glucose 85 Calcium 10.0 D Magnesium EBV DNA (PCR) SEE NOTE 09/04/20 09/04/20 05:40 05:40 WBC RBC Hgb Hct MCV MCH MCHC RDW Plt Count MPV Absolute Nucleated RBC Nucleated RBC % (auto) Sodium 139 Potassium 5.1 Chloride 100 Carbon Dioxide 25 Anion Gap 19 BUN 22 H Creatinine 1.44 H Estim Creat Clear Calc 36.6 Estimated GFR 36 Random Glucose 71 Calcium 9.5 Magnesium 1.8 EBV DNA (PCR) Microbiology Microbiology Results: Microbiology 08/29/20 14:42 Blood - Venous Blood Culture - Final No growth after 5 days. 08/29/20 14:42 Blood - Venous Blood Culture - Final No growth after 5 days. 08/31/20 14:00 Abdominal Fluid Gram Stain - Final 08/31/20 14:00 Abdominal Fluid Routine Culture - Final No growth after 2 days 08/29/20 Unknown Urine clean catch - Clean Catch Midstream Urine Culture - Final Assessment & Plan Assessment and plan (1) NONI (acute kidney injury): Status: Acute Assessment and Plan: Right hydro s/p cysto and stent Creatinine is marginally better Keep I > O No indication for dialysis h/o Hep C (?) Pelvic mass- possible ovarian Shall follow with team Time Spent With Patient Time: Total time spent is greater than 50% in coordination of care (as documented) at patient's floor/unit and/or counseling patient: Procedures Date of Service Date of Service: 09/04/20 Progress Note: Quality Stroke Does the patient have a stroke diagnosis?: No
--- NOTE | 2020-09-04 10:26 | PM.CNCAR ---
History of Present Illness History of Present Illness Date of Service: 09/04/20 Consult reason: other (cardiomyopathy) Chief complaint: NONI Narrative: This is a cardiology consultation regarding cardiomyopathy. Patient has a history of opiate dependence on methadone, tobacco dependence, COPD admitted for abdominal pain, nausea, vomiting and poor oral intake. Found to have pelvic mass. In this context, she underwent an echocardiogram and that showed diminished LVEF. Patient herself does not have any known cardiac problems like coronary disease or myocardial infarction or cardiomyopathy. She states that she does get heartburn at different times. Sometimes at rest and sometimes during exertion. Not clear if his anginal equivalent or gastrointestinal in nature. Review of Systems Review of Systems: Yes all other systems are reviewed and are negative Cardiovascular: Cardiovascular: Reports as per HPI, Reports no additional cardiovascular complaints, Denies acrocyanosis, Denies cool extremities, Denies painful fingertips, Denies chest pain, Denies chest pain at rest, Denies diaphoresis, Denies syncope, Denies irregular heart rhythm, Denies claudication, Denies leg edema, Denies lightheadedness, Denies palpitations and Denies dyspnea Respiratory: Respiratory: Denies dyspnea Neurologic: Denies syncope Endocrine: Endocrine: Denies palpitations PMFSH Past Medical History Medical History COPD (chronic obstructive pulmonary disease) Functional capacity: independent ambulation Family History Family history: reviewed and not pertinent Surgical History Surgical History History of cholecystectomy S/P lumpectomy, right breast Social History Social History (Updated 08/31/20 @ 16:58 by Giulia Wynn) Household Members: Significant Other Housing: Apartment Do you presently have visiting nurse or other home services: No Alcohol intake: never Patient Tobacco Use Status: Current everyday Tobacco user Tobacco use type: Cigarette Smoked in Last 30 Days: Yes Second Hand Smoke Exposure: No Substance Use Type: Opiates and Painkillers Advance Directives Date on File: 08/30/20 service: No Current occupational status: retired Meds Allergies Allergy/AdvReac Type Severity Reaction Status Date / Time lisinopril [LISINOPRIL] Allergy Severe ANAPHYLAXIS, Verified 08/31/20 10:37 THROAT SWELLS fluoxetine [Prozac] Allergy Unknown Anaphylaxis Verified 08/31/20 10:37 From [facility] Allergy Severe INVOLUNTARY Uncoded 12/05/19 15:31 SPASMS Active Medications: Current Medications Generic Name Dose Route Start Last Admin Trade Name Arnaudq PRN Reason Stop Dose Admin Acetaminophen 650 mg 08/29/20 20:17 09/02/20 14:39 Acetaminophen 325 Mg Tablet PO 650 mg Q6H PRN Administration Pain, Mild (Pain Scale 1-3) Calcium Carbonate 750 mg 08/30/20 17:18 09/04/20 03:49 Calcium Carbonate 750 Mg Tab.Chew PO 750 mg Q4H PRN Administration Dyspepsia Docusate Sodium 100 mg 09/03/20 10:00 09/04/20 07:42 Docusate Sodium 100 Mg Capsule PO 100 mg BID DOMINICK Administration Heparin Sodium (Porcine) 5,000 unit 08/31/20 18:00 09/04/20 01:37 Heparin Sodium,Porcine 5,000 Unit/Ml Vial SUBCUT 5,000 unit Q8H DOMINICK Administration Hydromorphone HCl 1.5 mg 09/02/20 14:42 09/03/20 08:09 Hydromorphone Hcl 2 Mg/Ml Vial IVPUSH 1.5 mg Q4H PRN Administration Breakthrough Pain Hydromorphone HCl 4 mg 09/03/20 09:30 09/04/20 07:42 Hydromorphone Hcl 2 Mg Tablet PO 4 mg Q4H PRN Administration Pain, Moderate (Pain Scale 4-6 Methadone HCl 100 mg 08/30/20 13:45 09/04/20 10:06 Methadone Hcl 1 Mg/0.1 Ml Oral.Conc PO 100 mg DAILY DOMINICK Administration Metoprolol Tartrate 25 mg 09/03/20 12:00 09/04/20 07:41 Metoprolol Tartrate 25 Mg Tablet PO 25 mg BID DOMINICK Administration Protocol Ondansetron HCl 4 mg 08/31/20 19:42 09/01/20 03:36 Ondansetron Hcl 4 Mg/2 Ml Vial IVPUSH 4 mg ONCE PRN Administration Nausea and Vomiting Pharmacy Consult 1 each 08/29/20 17:54 Consult Rx Perform Med Rec MISCELLANE ONCE PRN Consult order Polyethylene Glycol 17 gm 08/30/20 21:00 09/04/20 07:43 Polyethylene Glycol 3350 17 Gm Powd.Pack PO 17 gm BID DOMINICK Administration Senna 17.2 mg 09/03/20 10:00 09/04/20 07:41 Sennosides 8.6 Mg Tablet PO 17.2 mg DAILY DOMINICK Administration Sodium Chloride 3 ml 08/30/20 00:00 09/04/20 07:43 0.9 % Sodium Chloride Flush 3 Ml Syringe IVFLUSH 3 ml QSHIFT DOMINICK Administration Home Medications Medication Instructions Recorded Confirmed Last Taken Type methadone 105 mg PO QAM 08/30/20 08/30/20 08/29/20 History 0800 Physical Exam Vital Signs: Vital Signs: Last Vital Signs Temp 97 F 09/04/20 07:27 Pulse 77 09/04/20 07:41 Resp 17 09/04/20 07:27 BP 182/90 H 09/04/20 07:41 Pulse Ox 97 09/04/20 07:27 Body Mass Index 28.9 Const: General: cooperative and no acute distress HENMT: Other: Unremarkable Neck: Neck: Yes normal visual inspection Chest: Chest palpation & inspection: normal inspection of the chest Resp: Auscultation: clear to auscultation bilaterally, no crackles and no wheezes Cardio: Jugular venous distension: no JVD Palpation: normal PMI Heart sounds: S1 normal heart sound present, S2 normal heart sound present, no gallops, no murmurs and no rubs GI: Palpation (GI): Soft to palpation Back/Spine/Pelvis: Other: unremarkable Skin: General skin exam: no rashes or lesions noted Neuro: Cranial nerves: Yes Other cranial nerve findings present Extrem: General: Yes no clubbing, cyanosis or edema Psych: Mental Status: other Results Labs and Meds Result diagrams: 09/03/20 16:21 09/04/20 05:40 Lab results: Laboratory Results - last 24 hr 08/30/20 09/03/20 09/03/20 12:46 16:21 16:21 WBC 13.0 H RBC 3.57 L Hgb 10.5 L Hct 33.1 L MCV 92.7 MCH 29.4 MCHC 31.7 RDW 16.9 H Plt Count 308 MPV 10.7 Absolute Nucleated RBC 0.000 Nucleated RBC % (auto) 0.0 Sodium 137 Potassium 5.3 H Chloride 102 Carbon Dioxide 26 Anion Gap 14 BUN 22 H Creatinine 1.52 H Estim Creat Clear Calc 34.6 Estimated GFR 34 Random Glucose 85 Calcium 10.0 D Magnesium EBV DNA (PCR) SEE NOTE 09/04/20 09/04/20 05:40 05:40 WBC RBC Hgb Hct MCV MCH MCHC RDW Plt Count MPV Absolute Nucleated RBC Nucleated RBC % (auto) Sodium 139 Potassium 5.1 Chloride 100 Carbon Dioxide 25 Anion Gap 19 BUN 22 H Creatinine 1.44 H Estim Creat Clear Calc 36.6 Estimated GFR 36 Random Glucose 71 Calcium 9.5 Magnesium 1.8 EBV DNA (PCR) ECG Attestation: I personally reviewed and interpreted this ECG as follows: Interpretation: Admission EKG shows sinus rhythm at 74/Min; minimal criteria for left ventricular hypertrophy; cannot exclude old anterior infarct. Telemetry with underlying sinus rhythm but very short bursts of an SVT. Assessment and Plan (1) Cardiomyopathy: Qualifiers: Cardiomyopathy type: other Qualified Code(s): I42.8 - Other cardiomyopathies Status: Acute (2) NSVT (nonsustained ventricular tachycardia): Status: Acute Recent echocardiogram shows LVEF of 35-40%. Left atrium was moderately dilated. Mild mitral regurgitation was noted. Etiology for this is not clear. Could be either ischemic in nature versus related to hypertension as her blood pressures are running quite high. We can start her on carvedilol 6.25 b.i.d. and titrate accordingly. When the renal failure issues resolved, then CHAD inhibitors versus ARB or Entresto. Can also use Amlodipine for hypertension. Otherwise, she does need ischemic workup with a stress test and if necessary cardiac catheterization as well. Discussed about these with daughters at the bedside and they understand. Procedures Date of Service Date of Service: 09/04/20
--- NOTE | 2020-09-04 10:56 | CONS_ITS ---
DATE OF SERVICE: 08/31/2020 REASON FOR CONSULTATION: I was called to see this patient to assist in the management of acute kidney injury. HISTORY OF PRESENT ILLNESS: To summarize, Trinity is a 69-year-old woman with a history of COPD, comes in because of abdominal pain. During workup, she was found to have acute kidney injury and right-sided hydronephrosis. Pelvis was moderately dilated. She was seen by Urology and scheduled for a cystoscopy and possible stent placement. This consultation has been requested because her serum creatinine was elevated at 1.9 mg/dL on admission. PAST MEDICAL HISTORY: Ongoing medical problems include history of chronic obstructive pulmonary disease. PAST SURGICAL HISTORY: Includes cholecystectomy. SOCIAL HISTORY: No history of any alcohol intake. She does have history of smoking. ALLERGIES: SHE IS ALLERGIC TO FLUOXETINE, LISINOPRIL. MEDICATIONS: At home included methadone. All the current medications were reviewed. REVIEW OF SYSTEMS: Positive for back pain and abdominal pain. No nausea or vomiting. No chest pain. No fever. No dysuria, urgency, or frequency. All other systems were reviewed. PHYSICAL EXAMINATION: GENERAL: Trinity is a 69-year-old woman. She is thin built, comfortable, not in any distress. VITAL SIGNS: Blood pressure was 164/68, pulse 75 per minute. NECK: Supple. No JVD. HEENT: Mucosa is dry. LUNGS: Air entry equal. No rales. HEART: S1, S2 heard. No gallop. ABDOMEN: Soft, nontender. Bowel sounds heard. Mild CVA tenderness. No rebound or guarding. NEUROLOGIC: Alert, awake, oriented. No asterixis. EXTREMITIES: No edema. No rash. No clubbing. LABORATORY DATA: Sodium 139, potassium 4.9, CO2 of 21, BUN 26, creatinine 1.74. Hemoglobin 11.3, platelets . Urinalysis showed specific gravity of more than 1.030, 2+ protein, 2+ blood by dipstick with both wbc's and rbc's. IMPRESSION: 69-year-old woman with acute kidney injury, superimposed on chronic kidney disease. The acute kidney injury is most likely due to obstructive uropathy; however, she might have sustained ischemic ATN. History also appears to be clinically volume depleted. RECOMMENDATIONS: My recommendation will be to cautiously hydrate her. Agree with proceeding with urological workup including cystoscopy and possible stent placement. At the present time, the serum creatinine is gradually trending down, I expect renal function to return to baseline. No indication for dialysis. We will continue to avoid nephrotoxic agents and I will follow her along with the team. Oh Rojas MD BPA/MODL / [phone] MTDD
[2020-09-04] MEDS: ondansetron HCL 4 MG/2 ML VIAL IVPUSH (11:11)
[2020-09-04] MEDS: HYDROmorphone HCl 2 MG/ML VIAL 1.5 MG IVPUSH (11:57)
[2020-09-04] MEDS: amLODIPine Besylate 5 MG TABLET PO (11:57)
--- NOTE | 2020-09-04 13:45 | MHC.CM.PN ---
Cardiology and Nephrology are following; Patient does not appear ready for dc to home today. CM will follow for possible need to adjust the dc plan.
--- NOTE | 2020-09-04 15:48 | MHC.CM.PN ---
Patient wants to return home today. LUIS ALFREDO spoke with Daughter/Mara @ [phone], who reports that she wishes to increase services thru [facility]. LUIS ALFREDO has left 2 voice messages for [facility] CM/Moriah @ [phone], informing her of this situation and trying to determine if Patient is eligible for increased home/[facility] services. Mara has indicated that she and her Sister will provide oversight to Patient (i.e meds) until [facility] comes to the home (usually within 48 hours after dc from a hospital stay)and at that time, request increased home services. LUIS ALFREDO relayed this to AUSTYN/Yazmin and have left a very detailed message for Moriah, including Mara's phone number and a request to call Mara saunders.
--- NOTE | 2020-09-04 16:02 | MHC.CM.PN ---
Second IMM addressed at bedside with Patient and her 2 Daughters, providing them with the original and placing a copy on the chart. Patient and her 2 Daughters are aware of and in agreement with the dc plan.
--- NOTE | 2020-09-04 16:05 | P.DS_ITS ---
DS: Providers Provider Date of Service: 09/04/20 Date of admission: 08/29/20 20:18 Primary care physician: Mounika Martinez NP Consults: 08/29/20 20:17 Consult to Hematology / Oncology Routine Consulting Provider: Betty Lawrence Reason for consultation: adnexal mass 08/29/20 20:22 Consult to Gastroenterology Routine Consulting Provider: Paul Jaeger Reason for consultation: new Ascites/cirrhosis Consult to Nephrology Routine Consulting Provider: Zia Dalton Reason for consultation: Noni 08/29/20 20:29 Addiction Medicine Routine Consulting Provider: Veena Bingham Reason for consultation: pt on methadone 08/29/20 23:58 Consult to General Surgery Routine Consulting Provider: Aly Schmidt Reason for consultation: oozing from umbelicus; abdominal mass Consult to Obstetrics / Gynecology Routine Consulting Provider: Jorge Pagan Reason for consultation: 7.8 x 4.8 x 5.0 cm complex cystic structure in the right pelvis 08/30/20 12:43 Consult to Urology Routine Consulting Provider: Dao León Reason for consultation: Ovarian mass with hydronephrosis 09/03/20 11:27 Consult to Cardiology Routine Consulting Provider: Nicola Osborne Reason for consultation: new chf, nsvt Has provider been notified: No DS: Diagnosis Discharge Diagnosis (1) Cardiomyopathy: Status: Acute (2) NSVT (nonsustained ventricular tachycardia): Status: Acute (3) Hydronephrosis: Status: Acute (4) NONI (acute kidney injury): Status: Acute (5) UTI (urinary tract infection): Status: Acute (6) Adnexal mass: Status: Acute DS: Medications Discharge Medications Home Medications: Home Medications Medication Instructions Recorded Confirmed methadone 105 mg PO QAM 08/30/20 08/30/20 Previous Rx's Medication Instructions Recorded amlodipine [Norvasc] 5 mg PO DAILY 30 Days #30 tab 09/04/20 carvedilol [Coreg] 6.25 mg PO BID 30 Days #60 tab 09/04/20 docusate sodium [Colace] 100 mg PO BID 30 Days #60 cap 09/04/20 hydromorphone [Dilaudid] 4 mg PO Q6H PRN #30 tab 09/04/20 polyethylene glycol 3350 [Miralax] 17 g PO BID 30 Days #1020 g 09/04/20 sennosides [Senokot] 17.2 mg PO DAILY 30 Days #60 tab 09/04/20 DS: Summary Hospital Course Hospital Course: From H&P on day of admission 69-year-old female with a past medical history of opiate dependence on methadone program, COPD, tobacco dependence presented to the hospital with a chief complaint of abdominal discomfort. Patient mentions that over the past few days he has been having abdominal discomfort which has been gradually worsening. Hence decided to come to the ER here for evaluation today. Patient reports that over the past few weeks he has been losing weight-lost almost about 25 lb. Reports abdominal discomfort. Denies passing gas or having bowel movement. Per family members patient has been having issues with constipation. Patient denies any alcohol or illicit drug use. Denies any recent travel or sick contacts. Denies any in blood in the stool. Reports nausea and vomiting. Also reports poor oral intake. Denies any urinary symptoms. Denies any cough or chest pain. Denies any palpitations. Denies any numbness tingling. Review of all other systems is negative except mentioned above ER course: Per ER team patient noted to have a distended abdomen, tender, no guarding; CT abdomen showed home in liver cirrhosis with the new onset ascites, right adnexal mass; on the labs noted to have NONI and UTI. Patient has no signs of encephalopathy. Neurological exam benign. Will CT chest showed cardiomegaly otherwise no acute findings. Her troponins ended from 8. Admitted to the hospital for further management. Hospital course by problem: Abdominal/pelvic mass Concerning for ovarian cancer Seen by [facility], Dr. Pagan as well as oncology - Plan to refer to [facility] at [facility] as outpatient for further management. CA 19-9 25, CEA 1.80, [place] 125 [id number] Ultrasound guided biopsy of umbilical mass was done at same time as paracentesis. pathology is pending at the time of discharge. She was initially started on pain control with IV Dilaudid and eventually converted to p.o. pain medication. Her pain is currently at a tolerable level. She understands that her pain will not completely resolved. Her daughters will be staying with her to assist in medication management. She will also have visiting nurses from [facility]. NONI: In setting pelvic mass/ obstructive active uropathy She underwent cystoscopy with right stent placement 08/[address] León. Biopsies were taken and are pending at the time of discharge. Creatinine improved from 2.07 on day of admission to 1.44 on day of discharge Liver cirrhosis/new onset Ascites She underwent paracentesis on 08/31 no evidence of infection. Could be metastatic or liver failure from history of Hep C NSVT/cardiomyopathy 4 beat run of NSVT. She underwent echo from 09/01 shows LVEF 35-40%. She was started on low-dose beta-kwasi. She was seen in consultation by cardiology. She was started on Coreg. Given underlying renal dysfunction Anthony/Arb was not started but may need to be added at a future time. Cardiology recommended outpatient ischemic workup which has been scheduled. Constipation. Likely secondary to chronic narcotic use. Patient has been started MiraLax, senna, Colace which she should continue to take at home. History of opiate dependence. Patient was continued on her home dose of methadone during her hospitalization. She had her last dose was dispensed on September 04. UMESH. Medardo completed treatment while in the hospital. The above information was discussed with the patient and her daughter Mara and they both understandd and are in agreement with the plan at the time of discharge. Time Spent with Patient Time attestation: Total time spent providing and/or coordinating discharge services: Discharge coordination time: Greater than 30 minutes Quality: Stroke Does the patient have a stroke diagnosis?: No Physical Exam Vital Signs: Vital Signs: Last Vital Signs Temp 97 F 09/04/20 11:22 Pulse 70 09/04/20 11:57 Resp 18 09/04/20 11:22 BP 172/76 H 09/04/20 11:57 Pulse Ox 97 09/04/20 11:22 Body Mass Index 28.9 Const: General: comfortable, alert and awake Nutritional Appearance: well nourished HENMT: Head: Yes normocephalic and Yes atraumatic Eyes: Sclerae: sclerae normal Chest: Chest palpation & inspection: normal inspection of the chest Resp: Effort & Inspection: normal respiratory effort and no respiratory distress Cardio: Rate: regular rate Rhythm: regular rhythm GI: Palpation (GI): Soft to palpation Skin: Other: b/l lower extremity venous stasis changes Neuro: Cranial nerves: Yes CN's II-XII intact bilaterally and Yes Bilaterally intact EOM present DS: Data Data Completed and Pending Completed studies during hospitalization [Text1]: Pending at discharge 08/31/20 14:30 Cytology [PTH] Routine 08/31/20 20:00 Surgical [PTH] Routine Labs on day of discharge: Laboratory Results - last 24 hr 09/03/20 09/03/20 09/04/20 16:21 16:21 05:40 WBC 13.0 H RBC 3.57 L Hgb 10.5 L Hct 33.1 L MCV 92.7 MCH 29.4 MCHC 31.7 RDW 16.9 H Plt Count 308 MPV 10.7 Absolute Nucleated RBC 0.000 Nucleated RBC % (auto) 0.0 Sodium 137 139 Potassium 5.3 H 5.1 Chloride 102 100 Carbon Dioxide 26 25 Anion Gap 14 19 BUN 22 H 22 H Creatinine 1.52 H 1.44 H Estim Creat Clear Calc 34.6 36.6 Estimated GFR 34 36 Random Glucose 85 71 Calcium 10.0 D 9.5 Magnesium 09/04/20 05:40 WBC RBC Hgb Hct MCV MCH MCHC RDW Plt Count MPV Absolute Nucleated RBC Nucleated RBC % (auto) Sodium Potassium Chloride Carbon Dioxide Anion Gap BUN Creatinine Estim Creat Clear Calc Estimated GFR Random Glucose Calcium Magnesium 1.8 Imaging Chest x-ray: Radiologist's impression: ITS Impressions Chest X-Ray 08/29/20 12:41 IMPRESSION: Unremarkable chest exam. Abdomen/Pelvis CT 08/29/20 13:03 IMPRESSION: No acute pneumonic consolidation. There are small pulmonary nodules measuring 2 to 4 mm. No abnormal mediastinal or axillary adenopathy. Mildly heterogenous spleen likely related to slow contrast uptake. Mild right hydronephrosis with no obstructive etiology seen. There is a right renal cyst. Moderate constipation without obstruction. Diffuse ascites and mild anasarca. Loculated fluid collection versus ovarian cyst right adnexa. Moderate free fluid is seen in the pelvis. Liver cirrhosis suspected. Small right inguinal hernia containing fluid and small hiatal hernia. Chest CT 08/29/20 13:03 IMPRESSION: No acute pneumonic consolidation. There are small pulmonary nodules measuring 2 to 4 mm. No abnormal mediastinal or axillary adenopathy. Mildly heterogenous spleen likely related to slow contrast uptake. Mild right hydronephrosis with no obstructive etiology seen. There is a right renal cyst. Moderate constipation without obstruction. Diffuse ascites and mild anasarca. Loculated fluid collection versus ovarian cyst right adnexa. Moderate free fluid is seen in the pelvis. Liver cirrhosis suspected. Small right inguinal hernia containing fluid and small hiatal hernia. Pelvis Ultrasound 08/29/20 18:01 IMPRESSION: 7.8 x 4.8 x 5.0 cm complex cystic structure in the right pelvis. Its unclear if this is adnexal in etiology or could reflect loculated ascites. Consider MRI with and without contrast for further evaluation as clinically indicated. Paracentesis Ultrasound 08/31/20 14:30 IMPRESSION: Successful ultrasound-guided paracentesis with approximately 500 mL of light yellowish fluid drained from the right mid to lower quadrant. There appear to be a lot of loculations in the abdomen. Successful ultrasound-guided umbilical mass core biopsy performed x 3. Abdomen Retroperitoneal biopsy 08/31/20 15:00 IMPRESSION: Successful ultrasound-guided paracentesis with approximately 500 mL of light yellowish fluid drained from the right mid to lower quadrant. There appear to be a lot of loculations in the abdomen. Successful ultrasound-guided umbilical mass core biopsy performed x 3. Guidance Fluoroscopy 08/31/20 19:10 IMPRESSION: Placement of double-J stent in right collecting system. Discharge Plan Discharge Patient Disposition: Home Health Service Discharge Diagnosis: Pelvic Mass NONI Right hydronephrosis s/p stent placement Constipation Referrals: [facility] [Other] - 1 Week Mounika Martinez NP [Primary Care Provider] - 1 Week Dao León MD [Physician] - 1 Week Nicola Osborne MD [Physician] - 1 Week Martha Anna MD [Physician] - 1 Week (Call office for referral) Discharge Medications: New carvedilol [Coreg] 6.25 mg tablet 6.25 mg PO BID 30 Days Qty: 60 RF: 0 amlodipine [Norvasc] 5 mg tablet 5 mg PO DAILY 30 Days Qty: 30 RF: 0 polyethylene glycol 3350 [Miralax] 17 gram/dose powder 17 g PO BID 30 Days Qty: 1020 RF: 0 sennosides [Senokot] 8.6 mg tablet 17.2 mg PO DAILY 30 Days Qty: 60 RF: 0 docusate sodium [Colace] 100 mg capsule 100 mg PO BID 30 Days Qty: 60 RF: 0 hydromorphone [Dilaudid] 4 mg tablet 4 mg PO Q6H PRN (Reason: pain (scale score 7-10)) Qty: 30 RF: 0 Continued methadone 105 mg PO QAM RF: 0 Discharge Orders: Discharge Order (Routine); Ordered 09/04/20 Ordered By: Yazmin Mueller Diet: advance to usual diet Activity on Discharge: As tolerated Stand Alone Forms: Patient Portal Discharge page Care Plan Goals: see below Health Concerns: pelvic mass heart failure hypertension NONI Plan of Treatment: Pelvic mass- please call to schedule a follow-up appointment with [facility] at [facility]. ([phone]) Can take oral Dilaudid every 6 hours as needed for severe pain. Pathology reports are pending at the time of discharge. HTN. You have been started on Norvasc. Please take as prescribed. For the heart You have been started on coreg. Please take as prescribed. Will need to follow with Cardiology. Can call office to confirm follow-up time. ([phone]) Constipation. Please take MiraLax, senna, Colace as prescribed. hydronephrosis with right stent placed. Call to schedule follow up appointment with Dr. León of urology ([phone]) Patient was continued on her home dose of methadone while in the hospital. Last dose of methadone was taken 09/04 Assessment: see discharge summary
[2020-09-05 04:21] LABS: Alk.Phos Iso. Macrohepatic 0 % (<=0); Alk.Phos Isoenzymes Bone 41 % (28-66); Alk.Phos Isoenzymes Intest 32 % (1-24); Alk.Phos Isoenzymes Liver 19 % (25-69); Alk.Phos Isoenzymes Placental 8 % (<=0); Alk.Phos Isoenzymes Total 547 U/L (37-153)
== END 2020-09-04 17:03 | disposition home health service (06) | DRG 749 ==
LOC: HO.ED 18:45 → HO.EDOVER 20:48 → HO.IMC 08-30 17:46
PROVIDERS: Internal Medicine; Internal Medicine Gastroenterology; Nurse Practitioner Family; Obstetrics & Gynecology; Physician Assistant Medical; Radiology Diagnostic Radiology; Urology; Admitting Provider Hospitalist; Emergency Provider Emergency Medicine Emergency Medical Services; PCP Nurse Practitioner Family; Visit Provider Family Medicine
PROC: 0W9F3ZX Drainage of Abdominal Wall, Percutaneous Approach, Diagnostic (ICD-10-PCS; principal; 2020-08-31 13:00)
PROC: 0W9F3ZX Drainage of Abdominal Wall, Percutaneous Approach, Diagnostic (ICD-10-PCS; 2020-08-31 13:00)
PROC: 0TBB8ZX Excision of Bladder, Via Natural or Artificial Opening Endoscopic, Diagnostic (ICD-10-PCS; principal; 2020-08-31 17:30)
DX: C56.1 Malignant neoplasm of right ovary (principal); N17.0 Acute kidney failure with tubular necrosis; F11.20 Opioid dependence, uncomplicated; R18.0 Malignant ascites; I47.1 Supraventricular tachycardia; I42.8 Other cardiomyopathies; N13.6 Pyonephrosis; C78.7 Secondary malignant neoplasm of liver and intrahepatic bile duct; B19.20 Unspecified viral hepatitis C without hepatic coma; J44.9 Chronic obstructive pulmonary disease, unspecified; E87.5 Hyperkalemia; K74.60 Unspecified cirrhosis of liver; Z20.822 Contact with and (suspected) exposure to COVID-19; D72.829 Elevated white blood cell count, unspecified; K59.03 Drug induced constipation; T40.3X5A Adverse effect of methadone, initial encounter; Y92.9 Unspecified place or not applicable; F17.210 Nicotine dependence, cigarettes, uncomplicated; Z71.6 Tobacco abuse counseling; Z79.899 Other long term (current) drug therapy
CPT/HCPCS: 36415; 49083; 49180; 71046; 71250; 74176; 76857; 76942; 80048; 80076; 81001; 81003; 82042; 82105; 82150; 82378; 82550; 82945; 83605; 83615; 83735; 83880; 84080; 84157; 84484; 85025; 85027; 85610; 85652; 86038; 86039; 86140; 86301; 86304; 86704; 86706; 86709; 86803; 87040; 87071; 87086; 87205; 87340; 87497; 87635; 87798; 88112; 88305; 88307; 88341; 88342; 89051; 93005; 93306; 99285; C1758; C1769; C2617; J0696; J1170; J1885; J1940; J1956; J2405; J3010; Q9967